=== PATIENT | male | born 1955 | race Caucasian/White ===

== ENCOUNTER 2020-09-18 09:09 | Inpatient (IN) | payer MEDICAID, SELFPAY ==
[2020-09-18] VITALS (8 sets, daily range): BP systolic 126–168; BP diastolic 70–95; PULSE 72–89; RESP 16–18; TEMP 36.7–36.8; O2SAT 93–97; BMI 30.8
--- NOTE | 2020-09-18 09:11 | ED.FALL ---
HPI - Fall General Chief Complaint: Fall Stated Complaint: fell 4 days ago Time Seen by Provider: 09/18/20 09:10 Source: patient, EMS and old records reviewed Mode of arrival: EMS Limitations: no limitations History of Present Illness HPI Narrative: states he missed a step and has been on the floor since Monday with R hip pain no head injury no AC therapy, being fed and urinating while on the floor, states his friend couldn't help him today to get up so he called 911 MD complaint: fall Onset (ago): day(s) (fell Monday) Fall from: standing Fall witnessed: no Place fall occurred: home Loss of consciousness: none Prolonged down time: yes (states he has not gotten off the floor since Monday) Symptoms prior to fall: none Context: tripped/slipped Location of injury - extremities: right: thigh Severity: severe Quality: aching Associated symptoms (after fall): denies Related Data Home Medications Medication Instructions Recorded Confirmed amlodipine 5 mg PO DAILY 09/18/20 09/18/20 lisinopril 20 mg PO BID 09/18/20 09/18/20 omega 3-sqw-cwp-fish oil [Fish Oil] 1 cap PO DAILY 09/18/20 09/18/20 triamterene-hydrochlorothiazid 1 tab PO DAILY 09/18/20 09/18/20 Allergies Allergy/AdvReac Type Severity Reaction Status Date / Time No Known Allergies Allergy Unverified 05/07/20 14:41 [No Known Allergies*] Review of Systems Review of Systems: Constitutional : No Fever, No Chills ENT/Mouth : No Ear Pain, No Hoarseness, No sore throat Eyes: No Eye Pain, No Swelling, No Redness, No Foreign Body Cardiovascular : No Chest Pain, No SOB Respiratory : No Cough, No Dyspnea Gastrointestinal : No Nausea, No Vomiting, No Diarrhea, No abdominal Pain Genitourinary : No Dysuria, No Hematuria Musculoskeletal : positive joint pain, No Myalgias, No Joint Swelling Skin : No Skin lacerations, No rash Neuro : No Weakness, No Numbness, No Loss of Consciousness, No Dizziness, No Headache Psych : No Anxiety/Panic, No Depression Heme/Lymph: no easy bruising, no Lymphadenopathy Endocrine : No Polyuria, No Polydipsia All other systems reviewed and are negative [facility] Past Medical History Attestation statement: The following information was validated with the patient. Medical History (Updated 09/18/20 @ 11:41 by Janelle Gupta DO) Alcoholism Aspiration pneumonia Falls HTN (hypertension) Social History Social History (Updated 09/18/20 @ 09:26 by Janelle Gupta DO) Alcohol intake: current Smoking Status: Former smoker Use of substances other than those prescribed or required for medical reasons: No Advance Directives: No Advance Directives Information Provided: Yes Physical Exam Vital Signs: Vital Signs: Last Vital Signs Temp 98.1 F 09/18/20 11:55 Pulse 78 09/18/20 11:55 Resp 18 09/18/20 11:55 BP 146/78 H 09/18/20 11:55 Pulse Ox 93 09/18/20 11:55 Body Mass Index 30.8 Appearance: Alert. Oriented X3. No acute distress. Eyes: Pupils equal, round and reactive to light. ENT: Pharynx normal. Neck: Normal inspection. Neck supple. CVS: Normal heart rate and rhythm. Pulses normal. Respiratory: No respiratory distress. Breath sounds normal. Abdomen: Soft and nontender. Skin: Skin warm and dry. Normal skin color. Normal skin turgor. Extremities: No lower extremity edema. distal NV intact, ttp along R prox hip with moderate swelling and thigh deformity noted hematoma lateral aspect felt Neuro: Oriented X 3. No motor deficit. No sensory deficit. Course Course Course Narrative: elke martell, call to orthopedics for admission, VS stable denies concern for ETOH withdrawal states he is not drinking regularly and does not shake without it MDM - Fall MDM Narrative Medical decision making narrative: 65 yo male states he fell on Monday and since then has been on the floor unable to get up, his is ill and cannot help him but she has been feeding him NPO since 830pm, giving him stuff to urinate in, he reports he missed s step and fell, his friend tried to help him get up but he couldn't reports isolated injury to R hip, at this time will need labs, CT head/neck, labs, IVF, CPK, IV ativan very shaky and has hx of falls in past related to ETOH, IV morphine for pain, xray of hip, possible reduction in ED if dislocated Lab Data Result diagrams: 09/18/20 10:38 09/18/20 10:38 Labs: Lab Results 09/18/20 09/18/20 09/18/20 Range/Units 10:38 10:38 10:38 WBC 8.3 (4.8-10.8) X10*3/uL RBC 2.98 L (4.60-5.80) X10*6/uL Hgb 10.5 L (14.0-18.0) g/dl Hct 30.6 L (42-52) % MCV 102.7 H (80-98) fL MCH 35.2 H (27.0-33.0) pg MCHC 34.3 (31.0-36.0) g/dl RDW 12.3 (11.0-16.0) % Plt Count 163 (160-400) X10*3/uL MPV 11.0 (9.4-12.4) fL Immature Gran % (Auto) 0.2 (0.0-0.4) % Neut % (Auto) 70.1 (45-73) % Lymph % (Auto) 16.7 L (20-40) % [place] % (Auto) 10.4 (2-11) % Eos % (Auto) 2.1 (0-4) % Baso % (Auto) 0.5 (0-2) % Lymph # (Auto) 1.4 (1.2-4.9) X10*3/uL [place] # (Auto) 0.9 (0.1-1.2) X10*3/uL Eos # (Auto) 0.2 (0.0-0.4) X10*3/uL Baso # (Auto) 0.0 (0.0-0.2) X10*3/uL Abs Immat Gran (auto) 0.02 (0.00-0.03) X10*3/uL Absolute Neuts (auto) 5.8 (2.0-8.3) X10*3/uL Absolute Nucleated RBC 0.000 (0.0-0.012) X10*3/uL Nucleated RBC % (auto) 0.0 (0.0-0.2) /100WBC PT (10.8-13.0) SEC INR (0.9-1.1) APTT (24.1-38.0) SEC Sodium 141 (135-145) mmol/L Potassium 3.7 (3.3-5.1) mmol/l Chloride 104 (96-108) mmol/L Carbon Dioxide 27 (22-29) mmol/L Anion Gap 14 (12-20) BUN 24 H (9-16) mg/dL Creatinine 0.79 (0.5-1.4) mg/dL Estim Creat Clear Calc 125.7 Estimated GFR > 60 Random Glucose 132 H (60-115) mg/dL Lactic Acid (0.5-2.0) mmol/L Calcium 8.4 (8.4-10.2) mg/dL Magnesium 1.6 (1.6-2.6) mg/dL Total Bilirubin 1.8 H (0.0-1.0) mg/dL Direct Bilirubin 0.8 H (0.0-0.5) mg/dL AST 57 H (5-37) U/L ALT 34 (0-40) U/L Alkaline Phosphatase 59 (39-117) U/L Total Creatine Kinase 239 H (38-174) U/L Troponin I High Sens (<3.5-35.0) ng/L Total Protein 5.8 L (6.5-8.0) g/dL Albumin 3.4 L (3.5-5.0) g/dL Lipase (8-78) U/L Stool Occult Blood (NEG) Ethyl Alcohol < 10 mg/dL 09/18/20 09/18/20 09/18/20 Range/Units 10:38 10:38 10:38 WBC (4.8-10.8) X10*3/uL RBC (4.60-5.80) X10*6/uL Hgb (14.0-18.0) g/dl Hct (42-52) % MCV (80-98) fL MCH (27.0-33.0) pg MCHC (31.0-36.0) g/dl RDW (11.0-16.0) % Plt Count (160-400) X10*3/uL MPV (9.4-12.4) fL Immature Gran % (Auto) (0.0-0.4) % Neut % (Auto) (45-73) % Lymph % (Auto) (20-40) % [place] % (Auto) (2-11) % Eos % (Auto) (0-4) % Baso % (Auto) (0-2) % Lymph # (Auto) (1.2-4.9) X10*3/uL [place] # (Auto) (0.1-1.2) X10*3/uL Eos # (Auto) (0.0-0.4) X10*3/uL Baso # (Auto) (0.0-0.2) X10*3/uL Abs Immat Gran (auto) (0.00-0.03) X10*3/uL Absolute Neuts (auto) (2.0-8.3) X10*3/uL Absolute Nucleated RBC (0.0-0.012) X10*3/uL Nucleated RBC % (auto) (0.0-0.2) /100WBC PT 14.5 H (10.8-13.0) SEC INR 1.2 H (0.9-1.1) APTT 27.7 (24.1-38.0) SEC Sodium (135-145) mmol/L Potassium (3.3-5.1) mmol/l Chloride (96-108) mmol/L Carbon Dioxide (22-29) mmol/L Anion Gap (12-20) BUN (9-16) mg/dL Creatinine (0.5-1.4) mg/dL Estim Creat Clear Calc Estimated GFR Random Glucose (60-115) mg/dL Lactic Acid 1.9 (0.5-2.0) mmol/L Calcium (8.4-10.2) mg/dL Magnesium (1.6-2.6) mg/dL Total Bilirubin (0.0-1.0) mg/dL Direct Bilirubin (0.0-0.5) mg/dL AST (5-37) U/L ALT (0-40) U/L Alkaline Phosphatase (39-117) U/L Total Creatine Kinase (38-174) U/L Troponin I High Sens 8.0 (<3.5-35.0) ng/L Total Protein (6.5-8.0) g/dL Albumin (3.5-5.0) g/dL Lipase (8-78) U/L Stool Occult Blood (NEG) Ethyl Alcohol mg/dL 09/18/20 09/18/20 Range/Units 10:38 11:46 WBC (4.8-10.8) X10*3/uL RBC (4.60-5.80) X10*6/uL Hgb (14.0-18.0) g/dl Hct (42-52) % MCV (80-98) fL MCH (27.0-33.0) pg MCHC (31.0-36.0) g/dl RDW (11.0-16.0) % Plt Count (160-400) X10*3/uL MPV (9.4-12.4) fL Immature Gran % (Auto) (0.0-0.4) % Neut % (Auto) (45-73) % Lymph % (Auto) (20-40) % [place] % (Auto) (2-11) % Eos % (Auto) (0-4) % Baso % (Auto) (0-2) % Lymph # (Auto) (1.2-4.9) X10*3/uL [place] # (Auto) (0.1-1.2) X10*3/uL Eos # (Auto) (0.0-0.4) X10*3/uL Baso # (Auto) (0.0-0.2) X10*3/uL Abs Immat Gran (auto) (0.00-0.03) X10*3/uL Absolute Neuts (auto) (2.0-8.3) X10*3/uL Absolute Nucleated RBC (0.0-0.012) X10*3/uL Nucleated RBC % (auto) (0.0-0.2) /100WBC PT (10.8-13.0) SEC INR (0.9-1.1) APTT (24.1-38.0) SEC Sodium (135-145) mmol/L Potassium (3.3-5.1) mmol/l Chloride (96-108) mmol/L Carbon Dioxide (22-29) mmol/L Anion Gap (12-20) BUN (9-16) mg/dL Creatinine (0.5-1.4) mg/dL Estim Creat Clear Calc Estimated GFR Random Glucose (60-115) mg/dL Lactic Acid (0.5-2.0) mmol/L Calcium (8.4-10.2) mg/dL Magnesium (1.6-2.6) mg/dL Total Bilirubin (0.0-1.0) mg/dL Direct Bilirubin (0.0-0.5) mg/dL AST (5-37) U/L ALT (0-40) U/L Alkaline Phosphatase (39-117) U/L Total Creatine Kinase (38-174) U/L Troponin I High Sens (<3.5-35.0) ng/L Total Protein (6.5-8.0) g/dL Albumin (3.5-5.0) g/dL Lipase 49 (8-78) U/L Stool Occult Blood NEG (NEG) Ethyl Alcohol mg/dL ECG Data Attestation: I personally reviewed and interpreted this ECG as follows: ECG interpretation date: 09/18/20 ECG interpretation time: 11:41 Interpretation: Rate: 74 Rhythm: NSR [place]: normal Normal P waves. Normal GELA. decreased QRS complex. ST T wave : nonspecific qTC:normal prior studies: no acute ischemia The study has been interpreted contemporaneously by me. . Discharge Plan Discharge Clinical Impression: Intertrochanteric fracture Qualifiers: Encounter type: initial encounter Fracture type: closed Fracture alignment: displaced Laterality: right Qualified Code(s): S72.141A - Displaced intertrochanteric fracture of right femur, initial encounter for closed fracture Anemia Qualifiers: Anemia type: other cause Other causes of anemia: other cause, not classified Qualified Code(s): D64.89 - Other specified anemias Patient Disposition: Admitted As Inpatient
--- NOTE | 2020-09-18 09:12 | ECG_ITS ---
Test Reason : BLEED Blood Pressure : / mmHG Vent. Rate : 074 BPM Atrial Rate : 074 BPM P-R Int : 120 ms QRS Dur : 086 ms QT Int : 420 ms P-R-T Axes : 026 041 093 degrees QTc Int : 466 ms Normal sinus rhythm with sinus arrhythmia Low voltage QRS Borderline ECG When compared with ECG of 21-JUN-2015 21:26, Nonspecific T wave abnormality now evident in Inferior leads Referred By: Janelle Gupta Electronically Signed By:Trevor Hardy
--- NOTE | 2020-09-18 09:12 | CT_ITS ---
EXAMINATION: CT BRAIN, CT CERVICAL SPINE AND CT CHEST WITHOUT CONTRAST. CLINICAL INFORMATION: Fall. COMPARISON: None TECHNIQUE: 5 mm thin axial and reformatted 2 mm thin sagittal and coronal images of brain were obtained. Axial 3 mm thin and reformatted 2 mm thin sagittal and coronal images of cervical spine were obtained. Lastly 5 mm thin axial and reformatted 3 mm thin sagittal and coronal images of chest were obtained. DLP [id number] FINDINGS: BRAIN: There is no acute intra-axial, extra-axial bleed, masses, collection or midline shift. There is no acute infarction in evolution. There is no edema. The calvo to white matter consistent maintained. The lateral ventricles are slightly asymmetrical and mildly prominent. Mild prominence of cortical sulci are seen. Bone windows reveal no calvarial abnormality. No scalp soft tissue abnormality seen. There is mild mucoperiosteal thickening right maxillary sinus. Rest of the paranasal sinuses are well-aerated and clear. The bony orbits are intact. The optic globe, optic nerve are symmetrical. CERVICAL SPINE: On sagittal reconstructed images there is mild straightening of cervical lordosis. The vertebral heights are normal. There is minimal grade 1 anterior listhesis C3-C4 and C4 or C5 likely positional. Rest of the alignment is normal. There is loss of C5-C6 and C6-C7 disc heights with ventral and posterior spondylosis. The craniovertebral junction is normal. There is mild rotary subluxation of the C1-C2 alignment. There is moderate left C2-C3, C3-C4, C4-C5 facet joint arthropathy and hypertrophy. There is no visible acute fracture or dislocation. The prevertebral, paravertebral and parapharyngeal soft tissues are normal. The LAN is widely patent. Bilaterally thyroid lobes are symmetrical and normal. No abnormal neck mass or lymph node adenopathy seen. CHEST: Both lungs are well-expanded and clear of acute process. There is no lung contusion, mass or pulmonary nodule. The heart size and the great vessels are normal caliber. There are coronary artery calcifications present. No pericardial effusion. No mediastinal mass or abnormal lymphadenopathy seen. The thyroid lobes are symmetrical with a hypodense nodule in the left lobe.. There is moderate mediastinal fat present. There is no pleural effusion or thickening. The axilla and chest wall is unremarkable. Imaging through the upper abdomen reveals visualized liver, spleen, pancreas and bilateral adrenal glands are unremarkable. Bone windows reveal degenerative disc changes T5-T6 through T8-T9 disc level. There is no lytic process. There is no visible acute rib fracture. There is old healed left fifth and sixth rib fractures. CT/CT cervical spine wo con IMPRESSION: No acute intracranial process seen. Age-related mild cerebral volume loss. There is a degenerative disc changes and spondylosis as described above. There is a rotatory subluxation at the C1-C2 articulation but no visible acute fracture or dislocation seen. Positional listhesis is visualized as described above. No acute lung contusion or consolidation. No pleural effusion pneumothorax. Old left rib fractures. No acute vertebral or rib fractures seen.
--- NOTE | 2020-09-18 09:17 | XR_ITS ---
EXAMINATION: XR HIP, RIGHT CLINICAL INFORMATION: Right hip pain. COMPARISON: None TECHNIQUE: Two views of the right hip. FINDINGS: There is a comminuted right intertrochanteric fracture with increased varus angulation and avulsion of the lesser trochanter. Mild right hip degenerative joint changes are seen. The right hemipelvis is intact. The soft tissues are unremarkable. XR/XR hip RT min 2V IMPRESSION: 1. Mildly displaced, comminuted right intertrochanteric fracture. 2. Mild right hip osteoarthritis.
[2020-09-18 10:48] LABS: MANUAL DIFF FLAG NO
[2020-09-18 10:50] LABS: Basophils Percent Auto 0.5 % (0-2); Eosinophils Absolute Auto 0.2 X10*3/uL (0.0-0.4); Eosinophils Percent Auto 2.1 % (0-4); Hematocrit 30.6 % (42-52); Hemoglobin 10.5 g/dl (14.0-18.0); Imm Gran Abs Auto 0.02 X10*3/uL (0.00-0.03); Imm Gran Pct Auto 0.2 % (0.0-0.4); Lymphocytes Absolute Auto 1.4 X10*3/uL (1.2-4.9); Lymphocytes Percent Auto 16.7 % (20-40); Mean Corpuscular HGB Conc 34.3 g/dl (31.0-36.0); Mean Corpuscular Hemoglobin 35.2 pg (27.0-33.0); Mean Corpuscular Volume 102.7 fL (80-98); Monocytes Absolute Auto 0.9 X10*3/uL (0.1-1.2); Monocytes Percent Auto 10.4 % (2-11); Neutrophils Absolute Auto 5.8 X10*3/uL (2.0-8.3); Neutrophils Percent Auto 70.1 % (45-73); Platelet Count 163 X10*3/uL (160-400); Red Blood Count 2.98 X10*6/uL (4.60-5.80); Red Cell Distribution Width 12.3 % (11.0-16.0); White Blood Count 8.3 X10*3/uL (4.8-10.8)
[2020-09-18 10:57] LABS: INTERNATIONAL NORM RATIO 1.2 (0.9-1.1); Prothrombin Time 14.5 SEC (10.8-13.0)
[2020-09-18] MEDS: Morphine Sulfate 4 MG/ML CARTRIDGE 2 MG IVPUSH (10:59)
[2020-09-18 11:00] LABS: Partial Thromboplastin Time 27.7 SEC (24.1-38.0)
[2020-09-18] MEDS: LORazepam 2 MG/ML VIAL 1 MG IVPUSH (11:08)
[2020-09-18 11:14] LABS: Lactic Acid 1.9 mmol/L (0.5-2.0)
[2020-09-18 11:18] LABS: Ethanol < 10 mg/dL
[2020-09-18 11:20] LABS: Alanine Aminotransferase 34 U/L (0-40); Anion Gap 14 (12-20); Aspartate Amino Transferase 57 U/L (5-37); Bilirubin Direct 0.8 mg/dL (0.0-0.5); Bilirubin Total 1.8 mg/dL (0.0-1.0); Blood Urea Nitrogen 24 mg/dL (9-16); Calcium 8.4 mg/dL (8.4-10.2); Carbon Dioxide 27 mmol/L (22-29); Chloride 104 mmol/L (96-108); Creatinine Clr Calc Pharmacy 125.7; Estimated Glomerular Filt Rate > 60; Glucose Random 132 mg/dL (60-115); Magnesium 1.6 mg/dL (1.6-2.6); Potassium 3.7 mmol/l (3.3-5.1); Sodium 141 mmol/L (135-145)
[2020-09-18 11:21] LABS: Albumin Level 3.4 g/dL (3.5-5.0); Alkaline Phosphatase 59 U/L (39-117); Lipase 49 U/L (8-78); Total Protein 5.8 g/dL (6.5-8.0)
[2020-09-18 12:02] LABS: OBS Int Ctl Valid YES; OBS1 NEG (NEG)
[2020-09-18 12:10] LABS: COVID-19 Test Negative (Negative); IDNOW Serial# 9DD0AD1C
[2020-09-18] MEDS: oxyCODONE HCl Immed Release 5 MG TABLET PO (15:42)
[2020-09-18] MEDS: Dextrose 5 % and 0.45 % NaCl 1,000 ML 100 ML IVCONT (15:48)
--- NOTE | 2020-09-18 16:02 | PM.HPOR ---
History of Present Illness History of Present Illness Date of Service: 09/18/20 Chief complaint: Right intertrochanteric femur fx Narrative: Adán Live is a 65 year old male who presented to the emergency department earlier today for an injury he sustained to his right hip. He states on 09/14/20, he fell at home. He was unable to get up due to the pain, he did not think he had a fracture. His was unable to help him up, but was able to give him food and a bottle to void in. He had a friend come over to help him up , but due to the pain he was unable to stand. EMS was contacted and transported him to the ED for further workup. While in the ED, xrays were significant for intertrochanteric fracture of the right femur . Labs were negative for Rhabdo. At this time he will be admitted to the orthopedic service and we will proceed with surgical planning. Review of Systems Review of Systems: Yes all other systems are reviewed and are negative PMFSH Past Medical History Medical History (Updated 09/18/20 @ 11:41 by Janelle Gupta DO) Alcoholism Aspiration pneumonia Falls HTN (hypertension) Social History Social History (Updated 09/18/20 @ 09:26 by Janelle Gupta DO) Alcohol intake: current Smoking Status: Former smoker Use of substances other than those prescribed or required for medical reasons: No Advance Directives: No Advance Directives Information Provided: Yes Meds Allergies Allergy/AdvReac Type Severity Reaction Status Date / Time No Known Allergies Allergy Unverified 05/07/20 14:41 [No Known Allergies*] Home Medications Medication Instructions Recorded Confirmed Type amlodipine 5 mg PO DAILY 09/18/20 09/18/20 History lisinopril 20 mg PO BID 09/18/20 09/18/20 History omega 2-hyt-bbx-fish oil [Fish Oil] 1 cap PO DAILY 09/18/20 09/18/20 History triamterene-hydrochlorothiazid 1 tab PO DAILY 09/18/20 09/18/20 History Physical Exam Vital Signs: Vital Signs: Last Vital Signs Temp 98.1 F 09/18/20 11:55 Pulse 76 09/18/20 15:03 Resp 18 09/18/20 15:03 BP 139/74 09/18/20 15:03 Pulse Ox 95 09/18/20 15:03 Body Mass Index 30.8 Const: General: cooperative and no acute distress Orientation/consciousness: patient oriented x3 Resp: Effort & Inspection: normal respiratory effort and able to speak in complete sentences Cardio: Peripheral pulses: Peripheral pulses 2+ throughout Neuro: General: patient oriented x3 Extrem: Other: Right hip skin intact, no visual wounds. Mild tenderness along the lateral aspect of the hip and pain with log roll. Leg is shortened and ER. Peripheral pulses present. Results Labs Result Diagrams: 09/18/20 10:38 09/18/20 10:38 Labs: Abnormal lab results 09/18/20 09/18/20 09/18/20 Range/Units 10:38 10:38 10:38 RBC 2.98 L (4.60-5.80) X10*6/uL Hgb 10.5 L (14.0-18.0) g/dl Hct 30.6 L (42-52) % MCV 102.7 H (80-98) fL MCH 35.2 H (27.0-33.0) pg Lymph % (Auto) 16.7 L (20-40) % PT 14.5 H (10.8-13.0) SEC INR 1.2 H (0.9-1.1) BUN 24 H (9-16) mg/dL Random Glucose 132 H (60-115) mg/dL Total Bilirubin 1.8 H (0.0-1.0) mg/dL Direct Bilirubin 0.8 H (0.0-0.5) mg/dL AST 57 H (5-37) U/L Total Creatine Kinase 239 H (38-174) U/L Total Protein 5.8 L (6.5-8.0) g/dL Albumin 3.4 L (3.5-5.0) g/dL H & H 09/18/20 Range/Units 10:38 Hgb 10.5 L (14.0-18.0) g/dl Hct 30.6 L (42-52) % Coagulation 09/18/20 Range/Units 10:38 INR 1.2 H (0.9-1.1) All other labs normal. Assessment and Plan (1) Intertrochanteric fracture: Qualifiers: Encounter type: initial encounter Fracture alignment: displaced Fracture type: closed Laterality: right Qualified Code(s): S72.141A - Displaced intertrochanteric fracture of right femur, initial encounter for closed fracture Status: Acute I discussed the case with Dr Walls and explained the extent of the injury to the patient and options available which include surigcal intervention. I explained the procedure in detail along with the length of recovery and rehab course. I explained the risk, benefits and alternatives. Risk including, but not limited to infection, blood clots, bleeding, non union or malunion and nerve/tissue damage to surrounding areas. I answered all their questions and with their understanding they have consented to move forward with Operative Fixation of the right hip . The patient with be T&S, med clearance obtained and NPO after midnight.
--- NOTE | 2020-09-18 17:39 | P.CONAN_ITS ---
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 Meds Allergies Allergy/AdvReac Type Severity Reaction Status Date / Time No Known Allergies Allergy Verified 09/18/20 22:03 [No Known Allergies*] Home Medications Medication Instructions Recorded Confirmed Type amlodipine 5 mg PO DAILY 09/18/20 09/18/20 History lisinopril 20 mg PO BID 09/18/20 09/18/20 History omega 3-tqj-vbq-fish oil [Fish Oil] 1 cap PO DAILY 09/18/20 09/18/20 History triamterene-hydrochlorothiazid 1 tab PO DAILY 09/18/20 09/18/20 History Exam Exam Date and Time: September 18, [id number] Height,Weight and Vital Signs: Height 6 ft 2 in Weight 108.862 kg Last Vital Signs Temp 98.1 F 09/18/20 11:55 Pulse 76 09/18/20 15:03 Resp 18 09/18/20 15:03 BP 139/74 09/18/20 15:03 Pulse Ox 95 09/18/20 15:03 Pertinent Lab Results Pertinent Lab Results: Laboratory Tests 09/18/20 09/18/20 09/18/20 10:38 10:38 10:38 WBC 8.3 RBC 2.98 L Hgb 10.5 L Hct 30.6 L MCV 102.7 H MCH 35.2 H MCHC 34.3 RDW 12.3 Plt Count 163 MPV 11.0 Immature Gran % (Auto) 0.2 Neut % (Auto) 70.1 Lymph % (Auto) 16.7 L [place] % (Auto) 10.4 Eos % (Auto) 2.1 Baso % (Auto) 0.5 Lymph # (Auto) 1.4 [place] # (Auto) 0.9 Eos # (Auto) 0.2 Baso # (Auto) 0.0 Abs Immat Gran (auto) 0.02 Absolute Neuts (auto) 5.8 Absolute Nucleated RBC 0.000 Nucleated RBC % (auto) 0.0 PT INR APTT Sodium 141 Potassium 3.7 Chloride 104 Carbon Dioxide 27 Anion Gap 14 BUN 24 H Creatinine 0.79 Estim Creat Clear Calc 125.7 Estimated GFR > 60 Random Glucose 132 H Lactic Acid Calcium 8.4 Magnesium 1.6 Total Bilirubin 1.8 H Direct Bilirubin 0.8 H AST 57 H ALT 34 Alkaline Phosphatase 59 Total Creatine Kinase 239 H Troponin I High Sens Total Protein 5.8 L Albumin 3.4 L Lipase Stool Occult Blood Ethyl Alcohol < 10 COVID-19 ([facility]) COVID-19 Syntervention Com Blood Type Antibody Screen 09/18/20 09/18/20 09/18/20 10:38 10:38 10:38 WBC RBC Hgb Hct MCV MCH MCHC RDW Plt Count MPV Immature Gran % (Auto) Neut % (Auto) Lymph % (Auto) [place] % (Auto) Eos % (Auto) Baso % (Auto) Lymph # (Auto) [place] # (Auto) Eos # (Auto) Baso # (Auto) Abs Immat Gran (auto) Absolute Neuts (auto) Absolute Nucleated RBC Nucleated RBC % (auto) PT 14.5 H INR 1.2 H APTT 27.7 Sodium Potassium Chloride Carbon Dioxide Anion Gap BUN Creatinine Estim Creat Clear Calc Estimated GFR Random Glucose Lactic Acid 1.9 Calcium Magnesium Total Bilirubin Direct Bilirubin AST ALT Alkaline Phosphatase Total Creatine Kinase Troponin I High Sens 8.0 Total Protein Albumin Lipase Stool Occult Blood Ethyl Alcohol COVID-19 ([facility]) COVID-Basys Com Blood Type Antibody Screen 09/18/20 09/18/20 09/18/20 10:38 11:46 11:46 WBC RBC Hgb Hct MCV MCH MCHC RDW Plt Count MPV Immature Gran % (Auto) Neut % (Auto) Lymph % (Auto) [place] % (Auto) Eos % (Auto) Baso % (Auto) Lymph # (Auto) [place] # (Auto) Eos # (Auto) Baso # (Auto) Abs Immat Gran (auto) Absolute Neuts (auto) Absolute Nucleated RBC Nucleated RBC % (auto) PT INR APTT Sodium Potassium Chloride Carbon Dioxide Anion Gap BUN Creatinine Estim Creat Clear Calc Estimated GFR Random Glucose Lactic Acid Calcium Magnesium Total Bilirubin Direct Bilirubin AST ALT Alkaline Phosphatase Total Creatine Kinase Troponin I High Sens Total Protein Albumin Lipase 49 Stool Occult Blood NEG Ethyl Alcohol COVID-19 ([facility]) Negative COVID-19 Syntervention Com See Note Blood Type Antibody Screen 09/18/20 11:46 WBC RBC Hgb Hct MCV MCH MCHC RDW Plt Count MPV Immature Gran % (Auto) Neut % (Auto) Lymph % (Auto) [place] % (Auto) Eos % (Auto) Baso % (Auto) Lymph # (Auto) [place] # (Auto) Eos # (Auto) Baso # (Auto) Abs Immat Gran (auto) Absolute Neuts (auto) Absolute Nucleated RBC Nucleated RBC % (auto) PT INR APTT Sodium Potassium Chloride Carbon Dioxide Anion Gap BUN Creatinine Estim Creat Clear Calc Estimated GFR Random Glucose Lactic Acid Calcium Magnesium Total Bilirubin Direct Bilirubin AST ALT Alkaline Phosphatase Total Creatine Kinase Troponin I High Sens Total Protein Albumin Lipase Stool Occult Blood Ethyl Alcohol COVID-19 ([facility]) COVID-19 Clin Com Blood Type A Positive Antibody Screen NEGATIVE Airway Mallampati Class: III TM Dist: >3cm Neck ROM: Full Loose/Missing/Broken Teeth: No Heart: RRR Lungs: CTA Assessment and Plan Assessment Anesthesia Assessment: Anesthesia Plan Discussed and Chart Reviewed Final Anesthetic Review NPO: Yes ASA Class: II Final Preanesthetic Review: No Changes in Pt Med Stat, Meds/Allgs Chart Reviewed, Consent Obtained/Reviewed and Anes Risks/Benef Reviewed Patient Risk: Intermediate Procedure Risk: Intermediate Anesthetic Plan Anesthetic Plan: GA Disposition: Standard PACU
--- NOTE | 2020-09-18 18:36 | PM.IMCN ---
History of Present Illness Data of Consult Service Date: 09/18/20 Primary Care Provider: Xu Christianson MD [facility] Reason for consult: Medical management 65 year male with HTN, history of alchol use and falls. He is admitted to the ortho service due to hip fracture. He reportedly missed a step on Monday09/14/20 and sustained a fall at home with right hip pain and hasn't been able to walk, he thought it was a sprain and waited it out. was helping with food on floor and using a urinr. He finally decided to come on 09/18/20 to be evaluated in ED. He denies hitting his head, was not drunk at that time and had no loss of consciousness Review of Systems Review of Systems: Gen: no fever Resp: no sob, no cough CV: no chest, no SESAY, no leg edema GI: No n/v, no abd pain Neuro: No confusion Mus/sk: hip pain Yes all other systems are reviewed and are negative [facility] Medical History (Updated 09/19/20 @ 09:16 by David Regan MD) Alcoholism Aspiration pneumonia Falls HTN (hypertension) Family history: reviewed and not pertinent Social History (Updated 09/19/20 @ 09:16 by David Regan MD) Household Members: Spouse Housing: House Alcohol intake: current Smoking Status: Former smoker service: No Current occupational status: employed 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 Meds Allergies Allergy/AdvReac Type Severity Reaction Status Date / Time No Known Allergies Allergy Verified 09/18/20 22:03 [No Known Allergies*] Home Medications Medication Instructions Recorded Confirmed Type amlodipine 5 mg PO DAILY 09/18/20 09/18/20 History lisinopril 20 mg PO BID 09/18/20 09/18/20 History omega 3-kop-uoq-fish oil [Fish Oil] 1 cap PO DAILY 09/18/20 09/18/20 History triamterene-hydrochlorothiazid 1 tab PO DAILY 09/18/20 09/18/20 History Physical Exam Vital Signs and Narrative: Vital Signs: Last Vital Signs Temp 98.1 F 09/18/20 11:55 Pulse 72 09/18/20 18:02 Resp 18 09/18/20 18:02 BP 168/78 H 09/18/20 18:02 Pulse Ox 95 09/18/20 15:03 Body Mass Index 30.8 Constitutional Awake and Alert, No apparent distress Neck Supple, No lymphadenopathy Cardiovascular RRR, No M/R/G, S1 S2, No S3 S4, No pedal edema Respiratory Lungs clear, No respiratory distress Gastrointestinal Non tender, Non-distended Skin No rash Neurological Alert & oriented x3 Psychological Appropriate affect Results Labs CBC and Chem 7: 09/19/20 06:19 09/19/20 06:19 Labs: Laboratory Results - last 24 hr 09/18/20 09/18/20 09/18/20 10:38 10:38 10:38 MCV 102.7 H MCH 35.2 H MCHC 34.3 RDW 12.3 Plt Count 163 MPV 11.0 Immature Gran % (Auto) 0.2 Neut % (Auto) 70.1 Lymph % (Auto) 16.7 L Saunders % (Auto) 10.4 Eos % (Auto) 2.1 Baso % (Auto) 0.5 Lymph # (Auto) 1.4 Saunders # (Auto) 0.9 Eos # (Auto) 0.2 Baso # (Auto) 0.0 Abs Immat Gran (auto) 0.02 Absolute Neuts (auto) 5.8 Absolute Nucleated RBC 0.000 Nucleated RBC % (auto) 0.0 PT INR APTT Anion Gap 14 Estim Creat Clear Calc 125.7 Estimated GFR > 60 Random Glucose 132 H Lactic Acid Calcium 8.4 Magnesium 1.6 Total Bilirubin 1.8 H Direct Bilirubin 0.8 H AST 57 H ALT 34 Alkaline Phosphatase 59 Total Creatine Kinase 239 H Troponin I High Sens Total Protein 5.8 L Albumin 3.4 L Lipase Stool Occult Blood Ethyl Alcohol < 10 COVID-19 ([facility]) COVID-19 Clin Com Blood Type Antibody Screen 09/18/20 09/18/20 09/18/20 10:38 10:38 10:38 MCV MCH MCHC RDW Plt Count MPV Immature Gran % (Auto) Neut % (Auto) Lymph % (Auto) Saunders % (Auto) Eos % (Auto) Baso % (Auto) Lymph # (Auto) Saunders # (Auto) Eos # (Auto) Baso # (Auto) Abs Immat Gran (auto) Absolute Neuts (auto) Absolute Nucleated RBC Nucleated RBC % (auto) PT 14.5 H INR 1.2 H APTT 27.7 Anion Gap Estim Creat Clear Calc Estimated GFR Random Glucose Lactic Acid 1.9 Calcium Magnesium Total Bilirubin Direct Bilirubin AST ALT Alkaline Phosphatase Total Creatine Kinase Troponin I High Sens 8.0 Total Protein Albumin Lipase Stool Occult Blood Ethyl Alcohol COVID-19 ([facility]) COVID-19 [employer] Com Blood Type Antibody Screen 09/18/20 09/18/20 09/18/20 10:38 11:46 11:46 MCV MCH MCHC RDW Plt Count MPV Immature Gran % (Auto) Neut % (Auto) Lymph % (Auto) Saunders % (Auto) Eos % (Auto) Baso % (Auto) Lymph # (Auto) Saunders # (Auto) Eos # (Auto) Baso # (Auto) Abs Immat Gran (auto) Absolute Neuts (auto) Absolute Nucleated RBC Nucleated RBC % (auto) PT INR APTT Anion Gap Estim Creat Clear Calc Estimated GFR Random Glucose Lactic Acid Calcium Magnesium Total Bilirubin Direct Bilirubin AST ALT Alkaline Phosphatase Total Creatine Kinase Troponin I High Sens Total Protein Albumin Lipase 49 Stool Occult Blood NEG Ethyl Alcohol COVID-19 ([facility]) Negative COVID-19 [employer] See Note Blood Type Antibody Screen 09/18/20 11:46 MCV MCH MCHC RDW Plt Count MPV Immature Gran % (Auto) Neut % (Auto) Lymph % (Auto) Saunders % (Auto) Eos % (Auto) Baso % (Auto) Lymph # (Auto) Saunders # (Auto) Eos # (Auto) Baso # (Auto) Abs Immat Gran (auto) Absolute Neuts (auto) Absolute Nucleated RBC Nucleated RBC % (auto) PT INR APTT Anion Gap Estim Creat Clear Calc Estimated GFR Random Glucose Lactic Acid Calcium Magnesium Total Bilirubin Direct Bilirubin AST ALT Alkaline Phosphatase Total Creatine Kinase Troponin I High Sens Total Protein Albumin Lipase Stool Occult Blood Ethyl Alcohol COVID-19 ([facility]) COVID-19 [employer] Com Blood Type A Positive Antibody Screen NEGATIVE Imaging Radiologist's Impressions: Impressions Cervical Spine CT 09/18/20 09:12 IMPRESSION: No acute intracranial process seen. Age-related mild cerebral volume loss. There is a degenerative disc changes and spondylosis as described above. There is a rotatory subluxation at the C1-C2 articulation but no visible acute fracture or dislocation seen. Positional listhesis is visualized as described above. No acute lung contusion or consolidation. No pleural effusion pneumothorax. Old left rib fractures. No acute vertebral or rib fractures seen. Chest CT 09/18/20 09:12 IMPRESSION: No acute intracranial process seen. Age-related mild cerebral volume loss. There is a degenerative disc changes and spondylosis as described above. There is a rotatory subluxation at the C1-C2 articulation but no visible acute fracture or dislocation seen. Positional listhesis is visualized as described above. No acute lung contusion or consolidation. No pleural effusion pneumothorax. Old left rib fractures. No acute vertebral or rib fractures seen. Head CT 09/18/20 09:12 IMPRESSION: No acute intracranial process seen. Age-related mild cerebral volume loss. There is a degenerative disc changes and spondylosis as described above. There is a rotatory subluxation at the C1-C2 articulation but no visible acute fracture or dislocation seen. Positional listhesis is visualized as described above. No acute lung contusion or consolidation. No pleural effusion pneumothorax. Old left rib fractures. No acute vertebral or rib fractures seen. Hip X-Ray 09/18/20 09:17 IMPRESSION: 1. Mildly displaced, comminuted right intertrochanteric fracture. 2. Mild right hip osteoarthritis. Assessment and Plan (1) Intertrochanteric fracture: Qualifiers: Encounter type: initial encounter Fracture alignment: displaced Fracture type: closed Laterality: right Qualified Code(s): S72.141A - Displaced intertrochanteric fracture of right femur, initial encounter for closed fracture Status: Acute (2) HTN (hypertension): Status: Acute (3) Alcoholism: Status: Acute 65 year male with HTN, alcoho use here with right hip fracture 1. Right hip mildly displaced fracture -Surgical repair by ortho -Average cardiovascular risk, ECG reviewed no ischemic changes. No further cardiac testing needed 2. HTN--BP high this morning, -Resume home meds (Amlodipine 5, Lisinopril 20 and triamterene hydrochlorothiazide) 3. history of alchol use--he states he last drank a week ago, no signs of withdrawal -Add CIWA -Folic Acid and Thiamine
--- NOTE | 2020-09-18 20:26 | PC.NURSE ---
ATTEMPTED TO GIVE REPORT. NURSE TO CALL BACK FOR REPORT.
--- NOTE | 2020-09-18 20:48 | PC.NURSE ---
NURSE TO NURSE GIVEN TO DESTINY OTERO.
[2020-09-19] VITALS (18 sets, daily range): BP systolic 120–171; BP diastolic 62–100; PULSE 69–88; RESP 16–20; TEMP 36–36.6; O2SAT 91–98
[2020-09-19] MEDS: Dextrose 5 % and 0.45 % NaCl 1,000 ML 100 ML IVCONT ×2 (01:44→13:16)
[2020-09-19] MEDS: HYDROmorphone HCl 0.5 MG/0.5 ML SYRINGE 0.25 MG IVPUSH ×3 (04:22→17:07)
[2020-09-19 07:06] LABS: MANUAL DIFF FLAG NO
[2020-09-19 07:21] LABS: Basophils Percent Auto 0.4 % (0-2); Eosinophils Absolute Auto 0.4 X10*3/uL (0.0-0.4); Eosinophils Percent Auto 3.9 % (0-4); Hematocrit 29.2 % (42-52); Imm Gran Abs Auto 0.02 X10*3/uL (0.00-0.03); Imm Gran Pct Auto 0.2 % (0.0-0.4); Lymphocytes Absolute Auto 2.3 X10*3/uL (1.2-4.9); Mean Corpuscular HGB Conc 34.2 g/dl (31.0-36.0); Mean Corpuscular Hemoglobin 35.3 pg (27.0-33.0); Mean Corpuscular Volume 103.2 fL (80-98); Mean Platelet Volume 11.1 fL (9.4-12.4); Monocytes Absolute Auto 1.1 X10*3/uL (0.1-1.2); Monocytes Percent Auto 11.6 % (2-11); Neutrophils Absolute Auto 5.4 X10*3/uL (2.0-8.3); Neutrophils Percent Auto 58.9 % (45-73); Platelet Count 148 X10*3/uL (160-400); Red Blood Count 2.83 X10*6/uL (4.60-5.80); Red Cell Distribution Width 11.9 % (11.0-16.0); White Blood Count 9.2 X10*3/uL (4.8-10.8)
[2020-09-19 07:44] LABS: Anion Gap 12 (12-20); Blood Urea Nitrogen 15 mg/dL (9-16); Carbon Dioxide 27 mmol/L (22-29); Chloride 106 mmol/L (96-108); Creatinine Clr Calc Pharmacy 148.2; Estimated Glomerular Filt Rate > 60; Glucose Random 122 mg/dL (60-115); Potassium 3.8 mmol/L (3.3-5.1); Sodium 141 mmol/L (135-145)
--- NOTE | 2020-09-19 08:12 | PM.EVENT ---
Event Note Date of Service: 09/19/20 Event Note: Patient seen this morning He is scheduled for IMN this morning, NPO. He has no concerns at this time.
--- NOTE | 2020-09-19 08:52 | FL_ITS ---
EXAMINATION: XR FLUOROSCOPY WITH IMAGES CLINICAL INFORMATION: right intertrochanteric fracture gamma nail COMPARISON: Radiograph dated 09/18/2020 TECHNIQUE: Fluoroscopy performed by Dr. Naren Walls. Fluoroscopy time: 2.3 minutes DAP: 1.12 mGycm2 Images: 6 FL/FL guidance in OR FINDINGS/ IMPRESSION: Multiple images demonstrated placement of a long intramedullary nail with a femoral neck gamma nail and a single distal interlocking screw. This fixation construct crosses the comminuted intertrochanteric fracture with improved alignment. There is persistent lateral displacement of the distal fragment relative to the femoral neck and lesser trochanter.
--- NOTE | 2020-09-19 08:58 | MHC.CM.PN ---
PATIENT IS FULLY INDEPENDENT WITH HIS ADLS. HE NO LONGER HAS INSURANCE, AND HAS NOT YET SECURED THESE BENEFITS AT HIS NEW PLACE OF EMPLOYMENT. FACE SHEET FAXED TO [employer] @ [phone]. HE IS AGREEABLE TO COMPLETING A HCP, AND ASSIGNS HIS , MIRZA ([phone]) THE AGENT. COPY IN CHART. CASE MANAGEMENT FOLLOWING
[2020-09-19] MEDS: 0.9 % Sodium Chloride Flush 3 ML SYRINGE IVFLUSH (09:20)
[2020-09-19] MEDS: amLODIPine Besylate 5 MG TABLET PO (09:20)
--- NOTE | 2020-09-19 09:23 | P.PNIM_ITS ---
Subjective Subjective Date of Service: 09/19/20 Review of Systems Gen: no fever Resp: no sob, no cough CV: no chest, no SESAY, no leg edema GI: No n/v, no abd pain Neuro: No confusion Mus/sk: hip pain Physical Exam Vital Signs: Vital Signs: Last Vital Signs Temp 96.9 F 09/19/20 07:34 Pulse 76 09/19/20 07:34 Resp 18 09/19/20 07:34 BP 170/100 H 09/19/20 07:34 Pulse Ox 96 09/19/20 07:34 Body Mass Index 30.8 Const: General: cooperative and no acute distress Orientation/consciousness: patient oriented x3 Resp: Effort & Inspection: normal respiratory effort and able to speak in complete sentences Cardio: Peripheral pulses: Peripheral pulses 2+ throughout Neuro: General: patient oriented x3 Extrem: Other: Right hip skin intact, no visual wounds. Mild tenderness along the lateral aspect of the hip and pain with log roll. Leg is shortened and externally. Peripheral pulses present. Objective Data Current Medications Generic Name Dose Route Start Last Admin Trade Name Sadiqq PRN Reason Stop Dose Admin Acetaminophen 325 mg 09/18/20 14:58 Acetaminophen 325 Mg Tablet PO Q4H PRN Pain, Mild (Pain Scale 1-3) Amlodipine Besylate 5 mg 09/19/20 09:00 09/19/20 09:20 Amlodipine Besylate 5 Mg Tablet PO 5 mg DAILY SARAHI Administration Protocol Hydromorphone HCl 0.25 mg 09/18/20 14:58 09/19/20 09:19 Hydromorphone Hcl 0.5 Mg/0.5 Ml Syringe IVPUSH 0.25 mg Q4H PRN Administration Pain, Severe (Pain Scale 7-10) Dextrose/Sodium Chloride 1,000 mls @ 100 mls/hr 09/18/20 14:58 09/19/20 01:44 D51/2ns IVCONT 100 mls/hr .Q10H SARAHI Administration Lisinopril 20 mg 09/19/20 09:00 09/19/20 09:20 Lisinopril 20 Mg Tablet PO 20 mg BID SARAHI Administration Protocol Non-Formulary Medication 1 cap 09/19/20 09:00 [place] 1-Hrj-Xje-Fish Oil [Fish Oil] PO DAILY SARAHI Ondansetron HCl 4 mg 09/18/20 14:58 Ondansetron Hcl 4 Mg/2 Ml Vial IVPUSH Q4H PRN Nausea Oxycodone HCl 5 mg 09/18/20 14:58 09/18/20 15:42 Oxycodone Hcl Immed Release 5 Mg Tablet PO 5 mg Q4H PRN Administration Pain, Moderate (Pain Scale 4-6 Pharmacy Consult 1 each 09/18/20 09:12 Consult Rx Perform Med Rec MISCELLANE ONCE PRN Consult order Senna 17.2 mg 09/18/20 21:00 09/18/20 21:18 Sennosides 8.6 Mg Tablet PO Not Given BEDTIME SARAHI Sodium Chloride 3 ml 09/18/20 16:00 09/19/20 09:20 0.9 % Sodium Chloride Flush 3 Ml Syringe IVFLUSH 3 ml QSHIFT SARAHI Administration Triamterene/Hydrochlorothiazide 1 tab 09/19/20 09:00 09/19/20 09:21 Triamterene/Hctz 37.5/25 Tablet PO Not Given DAILY SARAHI Protocol Labs CBC & Chem 7: 09/19/20 06:19 09/19/20 06:19 Assessment and Plan (1) Intertrochanteric fracture: Status: Acute (2) HTN (hypertension): Status: Acute (3) Alcoholism: Status: Acute Assessment and Plan: 65 year male with HTN, alcoho use here with right hip fracture 1. Right hip mildly displaced fracture -Surgical repair by ortho planned today -Average cardiovascular risk, ECG reviewed no ischemic changes. No further cardiac testing needed 2. HTN--BP high this morning, -Continue home meds (Amlodipine 5, Lisinopril 20 and triamterene hydrochlorothiazide) 3. history of alchol use--he states he last drank a week ago, no signs of withdrawal -Add CIWA -Folic Acid and Thiamine DVT prophylaxis: to be determined after surgery
--- NOTE | 2020-09-19 09:38 | MHC.SHP ---
Pre-Procedural Eval Section A The patient is an INPATIENT: Yes Changes since office visit: Yes Patient answered all questions; No Cold of Flu in the past 2 weeks, No New Medical Problems and No Changes in Medication The History & Physical has been completed within 30 days and I have reviewed it.: Yes Section B Chief Complaint: Right intertrochanteric femur fx Allergies: Allergies Allergy/AdvReac Type Severity Reaction Status Date / Time No Known Allergies Allergy Verified 09/18/20 22:03 [No Known Allergies*] Plan I have reviewed the history and physical and performed a pertinent physical examination on my patient. No changes have occurred unless specified.
--- NOTE | 2020-09-19 11:20 | PM.OP ---
Brief Operative Note Date of Service: 09/19/20 Pre-op diagnosis: left hip IT fracture Post-op diagnosis: same Procedure: left hip IMN Implants: kezia [id number] 125 deg with 120 mm lag and 50 mm distal interlock Surgeon: Naren Walls MD Anesthesia: GETA and local Aircraft Load[employer] Superintendent: Jamila Mancia Estimated blood loss (mL): 100 Tourniquet time (min): 0 IV fluids (mL): 1,200 Pathology: none sent Condition: stable Disposition: PACU
[2020-09-19] MEDS: oxyCODONE HCl Immed Release 5 MG TABLET 10 MG PO (11:56)
[2020-09-19] MEDS: Ketorolac Tromethamine 30 MG/ML VIAL IVPUSH (11:57)
[2020-09-19] MEDS: HYDROmorphone HCl 0.5 MG/0.5 ML SYRINGE IVPUSH ×2 (11:59→12:08)
[2020-09-19] MEDS: ceFAZolin Sodium/Dextrose,Iso 2 GM/50 ML PIGGYBACK IV (14:09)
[2020-09-19] MEDS: Sennosides 8.6 MG TABLET 17.2 MG PO (20:42)
[2020-09-19] MEDS: oxyCODONE HCl Immed Release 5 MG TABLET PO (20:43)
--- NOTE | 2020-09-19 21:13 | OP_ITS ---
SURGEON: Naren Walls MD INDICATIONS: This is a 65-year-old gentleman who sustained a fall 5 days ago and delayed in seeking medical assistance. He was consented to undergo operative intervention for his right hip fracture. PREOPERATIVE DIAGNOSIS: Right intertrochanteric femur fracture. POSTOPERATIVE DIAGNOSIS: Right intertrochanteric femur fracture. PROCEDURE PERFORMED: IM nail, right hip. ESTIMATED BLOOD LOSS: 100 mL. COMPLICATIONS: None known. ANESTHESIA: General and local. ASSISTANTS: Jamila Mancia SPECIMENS: FLUIDS: 1200. IMPLANTS: [place] 380 x 1125 degree cephalomedullary nail with 120 mm hip screw and a 50 mm distal interlock. PROCEDURE IN DETAIL: The patient was brought to the operating room, placed supine on the operative table and prepped and draped in standard sterile fashion. Time-out was called to identify proper site, proper procedure, and proper surgeon. IV antibiotics per weight was administered. I began by applying traction, abduction and internal rotation and was able to reduce the fracture. There was some comminution of the lesser and some apex flexion of the fracture, but I was happy with the reduction. Proximal poke hole was made and my guidewire identified the tip of the greater trochanter. This penetrated the cortex and over-reamed with 15 mm reamer. I then placed my ball-tip guidewire down to the center-center of the distal femur and measured to 380 mm nail. Once this was done, I reamed to 13 and placed 380 x 11 mm nail. Using biplanar fluoroscopy, I then drilled the hip screw into the center-center of the femoral head on both biplanar projections and was happy with the alignment. This was measured and a 120 was drilled and 120 mm hip screw was placed. Once the hip screw was placed, I let off traction and compressed the fracture, and was happy with the reduction and the hardware alignment. I went to the distal femur and using perfect te-moak technique, placed 1 distal locking screw. I took biplanar fluoroscopy both proximally and distally, was happy with the hardware placement and fracture reduction. 20 mL of 0.25% Marcaine was injected in the incisions. The incisions were closed with absorbable suture and oksana. The patient was placed in sterile dressing, extubated, and brought to recovery room in stable condition. There were no known complications. Naren Walls MD NE/MODL / [id number]
[2020-09-20] VITALS (9 sets, daily range): BP systolic 111–146; BP diastolic 47–92; PULSE 70–92; RESP 16–20; TEMP 36.6–37; O2SAT 93–97
[2020-09-20] MEDS: Dextrose 5 % and 0.45 % NaCl 1,000 ML 100 ML IVCONT ×3 (00:04→21:39)
[2020-09-20 06:42] LABS: MANUAL DIFF FLAG NO
[2020-09-20 06:58] LABS: Basophils Percent Auto 0.2 % (0-2); Eosinophils Percent Auto 0.3 % (0-4); Hematocrit 26.4 % (42-52); Hemoglobin 8.8 g/dl (14.0-18.0); Imm Gran Abs Auto 0.05 X10*3/uL (0.00-0.03); Imm Gran Pct Auto 0.4 % (0.0-0.4); Lymphocytes Absolute Auto 1.8 X10*3/uL (1.2-4.9); Mean Corpuscular HGB Conc 33.3 g/dl (31.0-36.0); Mean Corpuscular Hemoglobin 34.6 pg (27.0-33.0); Mean Corpuscular Volume 103.9 fL (80-98); Mean Platelet Volume 11.1 fL (9.4-12.4); Monocytes Absolute Auto 1.4 X10*3/uL (0.1-1.2); Monocytes Percent Auto 11.5 % (2-11); Neutrophils Absolute Auto 8.6 X10*3/uL (2.0-8.3); Neutrophils Percent Auto 72.6 % (45-73); Platelet Count 154 X10*3/uL (160-400); Red Blood Count 2.54 X10*6/uL (4.60-5.80); Red Cell Distribution Width 11.9 % (11.0-16.0); White Blood Count 11.8 X10*3/uL (4.8-10.8)
[2020-09-20 07:22] LABS: Anion Gap 14 (12-20); Blood Urea Nitrogen 13 mg/dL (9-16); Carbon Dioxide 26 mmol/L (22-29); Chloride 103 mmol/L (96-108); Creatinine Clr Calc Pharmacy 141.8; Estimated Glomerular Filt Rate > 60; Glucose Random 139 mg/dL (60-115); Potassium 4.2 mmol/L (3.3-5.1); Sodium 139 mmol/L (135-145)
[2020-09-20] MEDS: Thiamine HCL 100 MG TABLET PO (09:06)
[2020-09-20] MEDS: 0.9 % Sodium Chloride Flush 3 ML SYRINGE IVFLUSH (09:07)
[2020-09-20] MEDS: Triamterene/HCTZ 37.5/25 TABLET 1 TAB PO (09:07)
[2020-09-20] MEDS: Folic Acid 1 MG TABLET PO (09:07)
[2020-09-20] MEDS: amLODIPine Besylate 5 MG TABLET PO (09:07)
[2020-09-20] MEDS: oxyCODONE HCl Immed Release 5 MG TABLET PO ×3 (09:09→21:57)
--- NOTE | 2020-09-20 09:38 | HO.PM.IMPN ---
Subjective Subjective Date of Service: 09/20/20 Interval History: Seen in f/u for hip fracture\. POD 1 for repair, has expected amount of pain Review of Systems Gen: no fever Resp: no sob, no cough CV: no chest, no SESAY, no leg edema GI: No n/v, no abd pain Neuro: No confusion Pain in the right hip Physical Exam Vital Signs: Vital Signs: Last Vital Signs Temp 97.8 F 09/20/20 07:41 Pulse 74 09/20/20 07:41 Resp 16 09/20/20 07:41 BP 146/83 H 09/20/20 07:41 Pulse Ox 97 09/20/20 07:41 Body Mass Index 30.8 Const: General: cooperative and no acute distress Orientation/consciousness: patient oriented x3 Resp: Effort & Inspection: normal respiratory effort and able to speak in complete sentences Cardio: Peripheral pulses: Peripheral pulses 2+ throughout Skin: Other: dressing in place at surgery site Neuro: General: patient oriented x3 Objective Data Current Medications Generic Name Dose Route Start Last Admin Trade Name Sadiqq PRN Reason Stop Dose Admin Acetaminophen 325 mg 09/18/20 14:58 Acetaminophen 325 Mg Tablet PO Q4H PRN Pain, Mild (Pain Scale 1-3) Amlodipine Besylate 5 mg 09/19/20 09:00 09/20/20 09:07 Amlodipine Besylate 5 Mg Tablet PO 5 mg DAILY SARAHI Administration Protocol Fentanyl 25 mcg 09/19/20 11:37 Fentanyl Citrate/Pf 100 Mcg/2 Ml Vial IVPUSH Q5M PRN Pain, Moderate (Pain Scale 4-6 Folic Acid 1 mg 09/19/20 09:30 09/20/20 09:07 Folic Acid 1 Mg Tablet PO 09/21/20 09:01 1 mg DAILY SARAHI Administration Hydromorphone HCl 0.25 mg 09/18/20 14:58 09/20/20 00:00 Hydromorphone Hcl 0.5 Mg/0.5 Ml Syringe IVPUSH 0.25 mg Q4H PRN Administration Pain, Severe (Pain Scale 7-10) Hydromorphone HCl 0.5 mg 09/19/20 11:37 09/19/20 12:08 Hydromorphone Hcl 0.5 Mg/0.5 Ml Syringe IVPUSH 0.5 mg Q5M PRN Administration Pain, Severe (Pain Scale 7-10) Dextrose/Sodium Chloride 1,000 mls @ 100 mls/hr 09/18/20 14:58 09/20/20 00:04 D51/2ns IVCONT 100 mls/hr .Q10H SARAHI Administration Promethazine HCl 12.5 mg/ 50.5 mls @ 202 mls/hr 09/19/20 11:37 Sodium Chloride IV ONCE PRN Nausea and Vomiting Lisinopril 20 mg 09/19/20 09:00 09/20/20 09:06 Lisinopril 20 Mg Tablet PO 20 mg BID SARAHI Administration Protocol Non-Formulary Medication 1 cap 09/19/20 09:00 [place] 9-Krv-Jxu-Fish Oil [Fish Oil] PO DAILY SARAHI Ondansetron HCl 4 mg 09/18/20 14:58 Ondansetron Hcl 4 Mg/2 Ml Vial IVPUSH Q4H PRN Nausea Oxycodone HCl 5 mg 09/18/20 14:58 09/20/20 09:09 Oxycodone Hcl Immed Release 5 Mg Tablet PO 5 mg Q4H PRN Administration Pain, Moderate (Pain Scale 4-6 Pharmacy Consult 1 each 09/18/20 09:12 Consult Rx Perform Med Rec MISCELLANE ONCE PRN Consult order Senna 17.2 mg 09/18/20 21:00 09/19/20 20:42 Sennosides 8.6 Mg Tablet PO 17.2 mg BEDTIME SARAHI Administration Sodium Chloride 3 ml 09/18/20 16:00 09/20/20 09:07 0.9 % Sodium Chloride Flush 3 Ml Syringe IVFLUSH 3 ml QSHIFT SARAHI Administration Thiamine HCl 100 mg 09/19/20 09:30 09/20/20 09:06 Thiamine Hcl 100 Mg Tablet PO 09/21/20 09:01 100 mg DAILY SARAHI Administration Triamterene/Hydrochlorothiazide 1 tab 09/19/20 09:00 09/20/20 09:07 Triamterene/Hctz 37.5/25 Tablet PO 1 tab DAILY SARAHI Administration Protocol Labs CBC & Chem 7: 09/20/20 06:15 09/20/20 06:15 Assessment and Plan (1) Intertrochanteric fracture: Status: Acute (2) HTN (hypertension): Status: Acute (3) Alcoholism: Status: Acute Assessment and Plan: 65 year male with HTN, alcoho use here with right hip fracture 1. Right hip mildly displaced fracture -Surgical repaired 09/19/20 -post op care by ortho 2. HTN--BP ok -Continue home meds (Amlodipine 5, Lisinopril 20 and triamterene hydrochlorothiazide) 3. history of alchol use--he states he last drank a week ago, no signs of withdrawal - CIWA -Folic Acid and Thiamine DVT prophylaxis: to be determined by surgery
[2020-09-20] MEDS: HYDROmorphone HCl 0.5 MG/0.5 ML SYRINGE 0.25 MG IVPUSH ×3 (11:07→21:31)
[2020-09-20] MEDS: Enoxaparin Sodium 40 MG/0.4 ML SYRINGE SUBCUT (11:08)
--- NOTE | 2020-09-20 13:10 | PM.PNORT ---
Subjective Subjective Date of Service: 09/20/20 Principal diagnosis: POD 1 s/p/ Right hip IMN Interval history: POD 1 sp RT hip IMN No overnight events, out of bed to chair with some discomfort . He denies cp, sob, dizziness. Physical Exam Vital Signs: Vital Signs: Last Vital Signs Temp 97.8 F 09/20/20 07:41 Pulse 74 09/20/20 07:41 Resp 16 09/20/20 07:41 BP 146/83 H 09/20/20 07:41 Pulse Ox 97 09/20/20 07:41 Body Mass Index 30.8 Const: General: cooperative, healthy appearing and no acute distress Resp: Effort & Inspection: normal respiratory effort and able to speak in complete sentences Cardio: Rate: regular rate Peripheral pulses: Peripheral pulses 2+ throughout GI: Palpation (GI): Soft to palpation Skin: General skin exam: no rashes or lesions noted Extrem: Other: Right hip bandage intact, no erythema, mild swelling. sensation intact, pulses present. Progress Note: A&P Assessment and plan (1) Intertrochanteric fracture: Status: Acute Assessment and Plan: Continue pain mgmnt Begin lovenox for dvt ppx begin PT / OT for Left hip lesley Dispo planning-Pending PT eval, pain mgmnt Fall Risk Details Current Medications: Current Medications Generic Name Dose Route Start Last Admin Trade Name Freq PRN Reason Stop Dose Admin Acetaminophen 325 mg 09/18/20 14:58 Acetaminophen 325 Mg Tablet PO Q4H PRN Pain, Mild (Pain Scale 1-3) Amlodipine Besylate 5 mg 09/19/20 09:00 09/20/20 09:07 Amlodipine Besylate 5 Mg Tablet PO 5 mg DAILY SARAHI Administration Protocol Enoxaparin Sodium 40 mg 09/20/20 12:00 09/20/20 11:08 Enoxaparin Sodium 40 Mg/0.4 Ml Syringe SUBCUT 40 mg Q24H SARAHI Administration Folic Acid 1 mg 09/19/20 09:30 09/20/20 09:07 Folic Acid 1 Mg Tablet PO 09/21/20 09:01 1 mg DAILY SARAHI Administration Hydromorphone HCl 0.25 mg 09/18/20 14:58 09/20/20 11:07 Hydromorphone Hcl 0.5 Mg/0.5 Ml Syringe IVPUSH 0.25 mg Q4H PRN Administration Pain, Severe (Pain Scale 7-10) Dextrose/Sodium Chloride 1,000 mls @ 100 mls/hr 09/18/20 14:58 09/20/20 11:00 D51/2ns IVCONT 100 mls/hr .Q10H SARAHI Administration Lisinopril 20 mg 09/19/20 09:00 09/20/20 09:06 Lisinopril 20 Mg Tablet PO 20 mg BID SARAHI Administration Protocol Ondansetron HCl 4 mg 09/18/20 14:58 Ondansetron Hcl 4 Mg/2 Ml Vial IVPUSH Q4H PRN Nausea Oxycodone HCl 5 mg 09/18/20 14:58 09/20/20 09:09 Oxycodone Hcl Immed Release 5 Mg Tablet PO 5 mg Q4H PRN Administration Pain, Moderate (Pain Scale 4-6 Pharmacy Consult 1 each 09/18/20 09:12 Consult Rx Perform Med Rec MISCELLANE ONCE PRN Consult order Senna 17.2 mg 09/18/20 21:00 09/19/20 20:42 Sennosides 8.6 Mg Tablet PO 17.2 mg BEDTIME SARAHI Administration Sodium Chloride 3 ml 09/18/20 16:00 09/20/20 09:07 0.9 % Sodium Chloride Flush 3 Ml Syringe IVFLUSH 3 ml QSHIFT SARAHI Administration Thiamine HCl 100 mg 09/19/20 09:30 09/20/20 09:06 Thiamine Hcl 100 Mg Tablet PO 09/21/20 09:01 100 mg DAILY SARAHI Administration Triamterene/Hydrochlorothiazide 1 tab 09/19/20 09:00 09/20/20 09:07 Triamterene/Hctz 37.5/25 Tablet PO 1 tab DAILY SARAHI Administration Protocol Time Spent With Patient Time: Total time spent is greater than 50% in coordination of care (as documented) at patient's floor/unit and/or counseling patient: Time with patient: 15 - 24 minutes
--- NOTE | 2020-09-20 16:12 | HO.POSTANES ---
Post Anesthesia Evaluation Post Anesthesia Evaluation Vital Signs: Vital Signs Temp Pulse Resp BP Pulse Ox 09/20/20 15:55 98.1 F 78 18 127/62 93 09/20/20 12:00 17 09/20/20 07:41 97.8 F 74 16 146/83 H 97 Anesthesia: General LMA Mental Status: Awake Pain Control: Satisfactory Nausea/Vomiting: None Hydration: Adequate Anesthesia-Related Issues: No Anes. Related Issues
[2020-09-20] MEDS: Sennosides 8.6 MG TABLET 17.2 MG PO (21:38)
[2020-09-21] VITALS (9 sets, daily range): BP systolic 135–155; BP diastolic 66–82; PULSE 74–82; RESP 19–20; TEMP 36.3–37.2; O2SAT 93–96; BMI 30.8
[2020-09-21] MEDS: HYDROmorphone HCl 0.5 MG/0.5 ML SYRINGE 0.25 MG IVPUSH ×3 (04:09→16:43)
[2020-09-21] MEDS: Dextrose 5 % and 0.45 % NaCl 1,000 ML 100 ML IVCONT ×2 (04:11→14:05)
[2020-09-21 07:11] LABS: Basophils Absolute Auto 0.1 X10*3/uL (0.0-0.2); Basophils Percent Auto 0.7 % (0-2); Eosinophils Absolute Auto 0.3 X10*3/uL (0.0-0.4); Eosinophils Percent Auto 3.1 % (0-4); Hematocrit 26.2 % (42-52); Hemoglobin 8.9 g/dl (14.0-18.0); Imm Gran Abs Auto 0.04 X10*3/uL (0.00-0.03); Imm Gran Pct Auto 0.4 % (0.0-0.4); Lymphocytes Absolute Auto 2.8 X10*3/uL (1.2-4.9); Lymphocytes Percent Auto 27.1 % (20-40); MANUAL DIFF FLAG SCAN; Mean Corpuscular Volume 103.1 fL (80-98); Mean Platelet Volume 10.9 fL (9.4-12.4); Monocytes Absolute Auto 1.6 X10*3/uL (0.1-1.2); Monocytes Percent Auto 15.9 % (2-11); Neutrophils Absolute Auto 5.4 X10*3/uL (2.0-8.3); Neutrophils Percent Auto 52.8 % (45-73); Platelet Count 161 X10*3/uL (160-400); Red Blood Count 2.54 X10*6/uL (4.60-5.80); Red Cell Distribution Width 12.4 % (11.0-16.0); SCAN SMEAR FLAG 1; White Blood Count 10.3 X10*3/uL (4.8-10.8)
[2020-09-21 07:43] LABS: Anion Gap 9 (12-20); Blood Urea Nitrogen 11 mg/dL (9-16); Calcium 8.1 mg/dL (8.4-10.2); Carbon Dioxide 31 mmol/L (22-29); Chloride 102 mmol/L (96-108); Creatinine Clr Calc Pharmacy 139.8; Estimated Glomerular Filt Rate > 60; Glucose Random 124 mg/dL (60-115); Potassium 3.9 mmol/L (3.3-5.1); Sodium 138 mmol/L (135-145)
[2020-09-21 08:01] LABS: SLIDE REVIEW VERIFIED
[2020-09-21] MEDS: Thiamine HCL 100 MG TABLET PO (08:27)
[2020-09-21] MEDS: amLODIPine Besylate 5 MG TABLET PO (08:27)
--- NOTE | 2020-09-21 10:10 | PM.PNORT ---
Subjective Subjective Date of Service: 09/21/20 Principal diagnosis: POD 2 s/p/ Right hip IMN Interval history: No overnight events, pain more managable today. He is in chair, will work more with PT later today. Denies cp, sob, dizziness Physical Exam Vital Signs: Vital Signs: Last Vital Signs Temp 98.6 F 09/21/20 07:32 Pulse 77 09/21/20 08:36 Resp 19 09/21/20 07:32 BP 155/82 H 09/21/20 08:36 Pulse Ox 94 09/21/20 08:36 Body Mass Index 30.8 Const: General: cooperative, healthy appearing and no acute distress Resp: Effort & Inspection: normal respiratory effort and able to speak in complete sentences Cardio: Rate: regular rate Peripheral pulses: Peripheral pulses 2+ throughout GI: Palpation (GI): Soft to palpation Skin: General skin exam: no rashes or lesions noted Extrem: Other: Right hip incision c/d/i. no erythema, mild swelling, sensation intact Progress Note: A&P Assessment and plan (1) Intertrochanteric fracture: Status: Acute Assessment and Plan: Continue pain mgmnt cont dvt ppx cont PT/OT right hip Dispo planning-Pending PT eval, pain mgmnt Fall Risk Details Current Medications: Current Medications Generic Name Dose Route Start Last Admin Trade Name Freq PRN Reason Stop Dose Admin Acetaminophen 325 mg 09/18/20 14:58 Acetaminophen 325 Mg Tablet PO Q4H PRN Pain, Mild (Pain Scale 1-3) Amlodipine Besylate 5 mg 09/19/20 09:00 09/21/20 08:27 Amlodipine Besylate 5 Mg Tablet PO 5 mg DAILY SARAHI Administration Protocol Enoxaparin Sodium 40 mg 09/20/20 12:00 09/20/20 11:08 Enoxaparin Sodium 40 Mg/0.4 Ml Syringe SUBCUT 40 mg Q24H SARAHI Administration Hydromorphone HCl 0.25 mg 09/18/20 14:58 09/21/20 08:26 Hydromorphone Hcl 0.5 Mg/0.5 Ml Syringe IVPUSH 0.25 mg Q4H PRN Administration Pain, Severe (Pain Scale 7-10) Dextrose/Sodium Chloride 1,000 mls @ 100 mls/hr 09/18/20 14:58 09/21/20 04:11 D51/2ns IVCONT 100 mls/hr .Q10H SARAHI Administration Lisinopril 20 mg 09/19/20 09:00 09/21/20 08:27 Lisinopril 20 Mg Tablet PO 20 mg BID SARAHI Administration Protocol Ondansetron HCl 4 mg 09/18/20 14:58 Ondansetron Hcl 4 Mg/2 Ml Vial IVPUSH Q4H PRN Nausea Oxycodone HCl 5 mg 09/18/20 14:58 09/20/20 21:57 Oxycodone Hcl Immed Release 5 Mg Tablet PO 5 mg Q4H PRN Administration Pain, Moderate (Pain Scale 4-6 Pharmacy Consult 1 each 09/18/20 09:12 Consult Rx Perform Med Rec MISCELLANE ONCE PRN Consult order Senna 17.2 mg 09/18/20 21:00 09/20/20 21:38 Sennosides 8.6 Mg Tablet PO 17.2 mg BEDTIME SARAHI Administration Sodium Chloride 3 ml 09/18/20 16:00 09/21/20 08:27 0.9 % Sodium Chloride Flush 3 Ml Syringe IVFLUSH Not Given QSHIFT SARAHI Triamterene/Hydrochlorothiazide 1 tab 09/19/20 09:00 09/20/20 09:07 Triamterene/Hctz 37.5/25 Tablet PO 1 tab DAILY SARAHI Administration Protocol Time Spent With Patient Time: Total time spent is greater than 50% in coordination of care (as documented) at patient's floor/unit and/or counseling patient: Time with patient: 15 - 24 minutes
[2020-09-21] MEDS: Triamterene/HCTZ 37.5/25 TABLET 1 TAB PO (10:25)
[2020-09-21] MEDS: Folic Acid 1 MG TABLET PO (10:25)
--- NOTE | 2020-09-21 11:49 | HO.PM.IMPN ---
Subjective Subjective Date of Service: 09/21/20 Interval History: no complaints Constitutional Constitutional: Denies fever(s) Cardiovascular Cardiovascular: Denies chest pain Respiratory Respiratory: Denies cough Gastrointestinal Gastrointestinal: Reports no additional gastrointestinal complaints Musculoskeletal Musculoskeletal: Reports arthralgias Physical Exam Vital Signs: Vital Signs: Last Vital Signs Temp 97.3 F 09/21/20 11:27 Pulse 75 09/21/20 11:27 Resp 20 09/21/20 11:27 BP 140/73 H 09/21/20 11:27 Pulse Ox 95 09/21/20 11:27 Body Mass Index 30.8 Const: General: cooperative; No acute distress Orientation/consciousness: patient oriented x3 Chest: Chest palpation & inspection: normal inspection of the chest Resp: Effort & Inspection: normal respiratory effort Auscultation: clear to auscultation bilaterally Cardio: Rate: regular rate Rhythm: regular rhythm GI: Inspection: Yes normal to inspection Neuro: General: patient oriented x3 Extrem: Other: R hip incision clean/dry/intact Objective Data Current Medications Generic Name Dose Route Start Last Admin Trade Name Freq PRN Reason Stop Dose Admin Acetaminophen 325 mg 09/18/20 14:58 Acetaminophen 325 Mg Tablet PO Q4H PRN Pain, Mild (Pain Scale 1-3) Amlodipine Besylate 5 mg 09/19/20 09:00 09/21/20 08:27 Amlodipine Besylate 5 Mg Tablet PO 5 mg DAILY SARAHI Administration Protocol Enoxaparin Sodium 40 mg 09/20/20 12:00 09/20/20 11:08 Enoxaparin Sodium 40 Mg/0.4 Ml Syringe SUBCUT 40 mg Q24H SARAHI Administration Hydromorphone HCl 0.25 mg 09/18/20 14:58 09/21/20 08:26 Hydromorphone Hcl 0.5 Mg/0.5 Ml Syringe IVPUSH 0.25 mg Q4H PRN Administration Pain, Severe (Pain Scale 7-10) Dextrose/Sodium Chloride 1,000 mls @ 100 mls/hr 09/18/20 14:58 09/21/20 04:11 D51/2ns IVCONT 100 mls/hr .Q10H SARAHI Administration Lisinopril 20 mg 09/19/20 09:00 09/21/20 08:27 Lisinopril 20 Mg Tablet PO 20 mg BID SARAHI Administration Protocol Ondansetron HCl 4 mg 09/18/20 14:58 Ondansetron Hcl 4 Mg/2 Ml Vial IVPUSH Q4H PRN Nausea Oxycodone HCl 5 mg 09/18/20 14:58 09/20/20 21:57 Oxycodone Hcl Immed Release 5 Mg Tablet PO 5 mg Q4H PRN Administration Pain, Moderate (Pain Scale 4-6 Pharmacy Consult 1 each 09/18/20 09:12 Consult Rx Perform Med Rec MISCELLANE ONCE PRN Consult order Senna 17.2 mg 09/18/20 21:00 09/20/20 21:38 Sennosides 8.6 Mg Tablet PO 17.2 mg BEDTIME SARAHI Administration Sodium Chloride 3 ml 09/18/20 16:00 09/21/20 08:27 0.9 % Sodium Chloride Flush 3 Ml Syringe IVFLUSH Not Given QSHIFT SARAHI Triamterene/Hydrochlorothiazide 1 tab 09/19/20 09:00 09/21/20 10:25 Triamterene/Hctz 37.5/25 Tablet PO 1 tab DAILY SARAHI Administration Protocol Labs CBC & Chem 7: 09/21/20 06:15 09/21/20 06:15 Assessment and Plan (1) Intertrochanteric fracture: Status: Acute (2) HTN (hypertension): Status: Acute (3) Alcoholism: Status: Acute Assessment and Plan: hosp d#3 65yo M admitted to Ortho for intertrochanteric R hip fx medicine consult for mgmt of comorbid conditions # HTN - BP controlled on home meds: amlodipine, lisinopril, triamterene/HCTZ # hx heavy EtOH abuse [though pt minimizes] - no signs of withdrawal - continue vitamin supplementation # POD #2 R hip IMN - VTE ppx with LMWH - PT
[2020-09-21] MEDS: Enoxaparin Sodium 40 MG/0.4 ML SYRINGE SUBCUT (12:11)
[2020-09-21] MEDS: oxyCODONE HCl Immed Release 5 MG TABLET PO ×2 (12:11→21:11)
--- NOTE | 2020-09-21 14:58 | MHC.CM.PN ---
PER CONVERSATION WITH FINANCIAL COUNSELOR, PATIENT IS NOW ELIGIBLE FOR [facility], WHICH WILL SHOW UP IN EXPANSE WITHIN 24 HOURS. ONCE PATIENT CHOOSES A PLAN, INFORMATION WILL NOT BE MADE AVAILABLE UNTIL POSSIBLY MONDAY OR MONDAY OF THIS WEEK.
[2020-09-21] MEDS: 0.9 % Sodium Chloride Flush 3 ML SYRINGE IVFLUSH (16:48)
[2020-09-21] MEDS: Sennosides 8.6 MG TABLET 17.2 MG PO (21:11)
[2020-09-22] VITALS (13 sets, daily range): BP systolic 106–154; BP diastolic 65–88; PULSE 71–88; RESP 16–20; TEMP 36.7–37.3; O2SAT 93–98
[2020-09-22] MEDS: 0.9 % Sodium Chloride Flush 3 ML SYRINGE IVFLUSH ×4 (01:20→23:49)
[2020-09-22] MEDS: HYDROmorphone HCl 0.5 MG/0.5 ML SYRINGE 0.25 MG IVPUSH ×4 (05:26→23:56)
[2020-09-22 07:24] LABS: Basophils Percent Auto 0.4 % (0-2); Eosinophils Absolute Auto 0.2 X10*3/uL (0.0-0.4); Hematocrit 28.3 % (42-52); Hemoglobin 9.7 g/dl (14.0-18.0); Imm Gran Abs Auto 0.04 X10*3/uL (0.00-0.03); Imm Gran Pct Auto 0.4 % (0.0-0.4); Lymphocytes Percent Auto 20.2 % (20-40); MANUAL DIFF FLAG SCAN; Mean Corpuscular HGB Conc 34.3 g/dl (31.0-36.0); Mean Corpuscular Volume 102.2 fL (80-98); Mean Platelet Volume 11.1 fL (9.4-12.4); Monocytes Absolute Auto 1.7 X10*3/uL (0.1-1.2); Monocytes Percent Auto 17.8 % (2-11); Neutrophils Absolute Auto 5.7 X10*3/uL (2.0-8.3); Neutrophils Percent Auto 59.2 % (45-73); Platelet Count 185 X10*3/uL (160-400); Red Blood Count 2.77 X10*6/uL (4.60-5.80); Red Cell Distribution Width 12.6 % (11.0-16.0); SCAN SMEAR FLAG 1; White Blood Count 9.7 X10*3/uL (4.8-10.8)
[2020-09-22] MEDS: Triamterene/HCTZ 37.5/25 TABLET 1 TAB PO (07:29)
[2020-09-22] MEDS: amLODIPine Besylate 5 MG TABLET PO (07:29)
[2020-09-22] MEDS: oxyCODONE HCl Immed Release 5 MG TABLET PO ×2 (07:29→15:26)
[2020-09-22 07:53] LABS: Anion Gap 12 (12-20); Blood Urea Nitrogen 8 mg/dL (9-16); Calcium 8.5 mg/dL (8.4-10.2); Carbon Dioxide 30 mmol/L (22-29); Chloride 100 mmol/L (96-108); Creatinine Clr Calc Pharmacy 143.9; Estimated Glomerular Filt Rate > 60; Glucose Random 122 mg/dL (60-115); Sodium 138 mmol/L (135-145)
--- NOTE | 2020-09-22 08:31 | PM.PNORT ---
Subjective Subjective Date of Service: 09/22/20 Principal diagnosis: POD 2 s/p/ Right hip IMN Interval history: POD3 s/p rt hip IMN pt. resting comfortably in bed. States that he has some groin pain and difficulty sleeping due to pain. No overnight events. Physical Exam Vital Signs: Vital Signs: Last Vital Signs Temp 98.2 F 09/22/20 04:00 Pulse 76 09/22/20 07:28 Resp 20 09/22/20 05:26 BP 141/88 H 09/22/20 07:28 Pulse Ox 96 09/22/20 07:28 Body Mass Index 30.8 Const: General: cooperative, healthy appearing and no acute distress Resp: Effort & Inspection: normal respiratory effort and able to speak in complete sentences Cardio: Rate: regular rate Peripheral pulses: Peripheral pulses 2+ throughout GI: Palpation (GI): Soft to palpation Skin: Lesions: no lesions Rashes: no rashes Extrem: Other: No ecchymosis, redness, or drainage. Dressing is clean, dry and intact. NVI Progress Note: A&P Assessment and plan (1) Intertrochanteric fracture: Status: Acute Assessment and Plan: Continue pain mgmnt Contiue Lovenox for dvt ppx Continue PT for rt hip IMN Dispo planning-Pending PT eval, pain mgmnt Fall Risk Details Current Medications: Current Medications Generic Name Dose Route Start Last Admin Trade Name Freq PRN Reason Stop Dose Admin Acetaminophen 325 mg 09/18/20 14:58 Acetaminophen 325 Mg Tablet PO Q4H PRN Pain, Mild (Pain Scale 1-3) Amlodipine Besylate 5 mg 09/19/20 09:00 09/22/20 07:29 Amlodipine Besylate 5 Mg Tablet PO 5 mg DAILY SARAHI Administration Protocol Enoxaparin Sodium 40 mg 09/20/20 12:00 09/21/20 12:11 Enoxaparin Sodium 40 Mg/0.4 Ml Syringe SUBCUT 40 mg Q24H SARAHI Administration Hydromorphone HCl 0.25 mg 09/18/20 14:58 09/22/20 05:26 Hydromorphone Hcl 0.5 Mg/0.5 Ml Syringe IVPUSH 0.25 mg Q4H PRN Administration Pain, Severe (Pain Scale 7-10) Lisinopril 20 mg 09/19/20 09:00 09/22/20 07:29 Lisinopril 20 Mg Tablet PO 20 mg BID SARAHI Administration Protocol Ondansetron HCl 4 mg 09/18/20 14:58 Ondansetron Hcl 4 Mg/2 Ml Vial IVPUSH Q4H PRN Nausea Oxycodone HCl 5 mg 09/18/20 14:58 09/22/20 07:29 Oxycodone Hcl Immed Release 5 Mg Tablet PO 5 mg Q4H PRN Administration Pain, Moderate (Pain Scale 4-6 Pharmacy Consult 1 each 09/18/20 09:12 Consult Rx Perform Med Rec MISCELLANE ONCE PRN Consult order Senna 17.2 mg 09/18/20 21:00 09/21/20 21:11 Sennosides 8.6 Mg Tablet PO 17.2 mg BEDTIME SARAHI Administration Sodium Chloride 3 ml 09/18/20 16:00 09/22/20 08:26 0.9 % Sodium Chloride Flush 3 Ml Syringe IVFLUSH 3 ml QSHIFT SARAHI Administration Triamterene/Hydrochlorothiazide 1 tab 09/19/20 09:00 09/22/20 07:29 Triamterene/Hctz 37.5/25 Tablet PO 1 tab DAILY SARAHI Administration Protocol Time Spent With Patient Time: Total time spent is greater than 50% in coordination of care (as documented) at patient's floor/unit and/or counseling patient: Time with patient: less than 15 minutes
[2020-09-22 08:46] LABS: SLIDE REVIEW VERIFIED
--- NOTE | 2020-09-22 10:38 | P.PNIM_ITS ---
Subjective Subjective Date of Service: 09/22/20 Interval History: R hip pain No fever, chest pain, or dyspnea Physical Exam Vital Signs: Vital Signs: Last Vital Signs Temp 98.5 F 09/22/20 09:16 Pulse 79 09/22/20 09:16 Resp 16 09/22/20 09:16 BP 106/65 09/22/20 09:16 Pulse Ox 93 09/22/20 09:16 Body Mass Index 30.8 Const: General: cooperative; No acute distress Orientation/consciousness: patient oriented x3 Chest: Chest palpation & inspection: normal inspection of the chest Resp: Effort & Inspection: normal respiratory effort Auscultation: clear to auscultation bilaterally Cardio: Rate: regular rate Rhythm: regular rhythm GI: Inspection: Yes normal to inspection Neuro: General: patient oriented x3 Extrem: Other: R hip incision clean/dry/intact Objective Data Current Medications Generic Name Dose Route Start Last Admin Trade Name Freq PRN Reason Stop Dose Admin Acetaminophen 325 mg 09/18/20 14:58 Acetaminophen 325 Mg Tablet PO Q4H PRN Pain, Mild (Pain Scale 1-3) Amlodipine Besylate 5 mg 09/19/20 09:00 09/22/20 07:29 Amlodipine Besylate 5 Mg Tablet PO 5 mg DAILY SARAHI Administration Protocol Enoxaparin Sodium 40 mg 09/20/20 12:00 09/21/20 12:11 Enoxaparin Sodium 40 Mg/0.4 Ml Syringe SUBCUT 40 mg Q24H SARAHI Administration Hydromorphone HCl 0.25 mg 09/18/20 14:58 09/22/20 05:26 Hydromorphone Hcl 0.5 Mg/0.5 Ml Syringe IVPUSH 0.25 mg Q4H PRN Administration Pain, Severe (Pain Scale 7-10) Lisinopril 20 mg 09/19/20 09:00 09/22/20 07:29 Lisinopril 20 Mg Tablet PO 20 mg BID SARAHI Administration Protocol Ondansetron HCl 4 mg 09/18/20 14:58 Ondansetron Hcl 4 Mg/2 Ml Vial IVPUSH Q4H PRN Nausea Oxycodone HCl 5 mg 09/18/20 14:58 09/22/20 07:29 Oxycodone Hcl Immed Release 5 Mg Tablet PO 5 mg Q4H PRN Administration Pain, Moderate (Pain Scale 4-6 Pharmacy Consult 1 each 09/18/20 09:12 Consult Rx Perform Med Rec MISCELLANE ONCE PRN Consult order Senna 17.2 mg 09/18/20 21:00 09/21/20 21:11 Sennosides 8.6 Mg Tablet PO 17.2 mg BEDTIME SARAHI Administration Sodium Chloride 3 ml 09/18/20 16:00 09/22/20 08:26 0.9 % Sodium Chloride Flush 3 Ml Syringe IVFLUSH 3 ml QSHIFT SARAHI Administration Triamterene/Hydrochlorothiazide 1 tab 09/19/20 09:00 09/22/20 07:29 Triamterene/Hctz 37.5/25 Tablet PO 1 tab DAILY SARAHI Administration Protocol Labs CBC & Chem 7: 09/22/20 06:44 09/22/20 06:44 Labs: Laboratory Results - last 24 hr 09/22/20 09/22/20 06:44 06:44 WBC 9.7 RBC 2.77 L Hgb 9.7 L Hct 28.3 L MCV 102.2 H MCH 35.0 H MCHC 34.3 RDW 12.6 Plt Count 185 MPV 11.1 Immature Gran % (Auto) 0.4 Neut % (Auto) 59.2 Lymph % (Auto) 20.2 [place] % (Auto) 17.8 H Eos % (Auto) 2.0 Baso % (Auto) 0.4 Lymph # (Auto) 2.0 [place] # (Auto) 1.7 H Eos # (Auto) 0.2 Baso # (Auto) 0.0 Abs Immat Gran (auto) 0.04 H Absolute Neuts (auto) 5.7 Absolute Nucleated RBC 0.000 Nucleated RBC % (auto) 0.0 Smear Tech's Comments VERIFIED Sodium 138 Potassium 4.0 Chloride 100 Carbon Dioxide 30 H Anion Gap 12 BUN 8 L Creatinine 0.69 Estim Creat Clear Calc 143.9 Estimated GFR > 60 Random Glucose 122 H Calcium 8.5 Assessment and Plan (1) Intertrochanteric fracture: Status: Acute (2) HTN (hypertension): Status: Acute (3) Alcoholism: Status: Acute Assessment and Plan: hosp d#4 65yo M admitted to Ortho for intertrochanteric R hip fx medicine consult for mgmt of comorbid conditions # HTN - BP controlled on home meds: amlodipine, lisinopril, triamterene/HCTZ # hx heavy EtOH abuse [though pt minimizes] - no signs of withdrawal - continue vitamin supplementation # POD #3 R hip IMN - VTE ppx with LMWH - analgesia + dispo planning as per Ortho
[2020-09-22] MEDS: Enoxaparin Sodium 40 MG/0.4 ML SYRINGE SUBCUT (11:48)
--- NOTE | 2020-09-22 16:04 | MHC.CM.PN ---
earlier today pt was accepted at [facility]. pt accepted the bed offer. MDS has been completed and patient is ready to go . however, at this time we are still waiting for rapid covid results . pt will need this prior to official acceptance at [facility] . rn and pa caring for patient are aware of this and most likely patient will have to go tomorrow c a completed dc summary. cm to cont. to follow.
[2020-09-22 16:13] LABS: COVID-19 Test Negative (Negative); IDNOW Serial# 9DD0AD1C
[2020-09-22] MEDS: Sennosides 8.6 MG TABLET 17.2 MG PO (20:53)
[2020-09-23 04:00] VITALS: BP 164/87; PULSE 76; RESP 16; TEMP 36.8; O2SAT 93
[2020-09-23 06:50] LABS: Basophils Absolute Auto 0.1 X10*3/uL (0.0-0.2); Basophils Percent Auto 0.5 % (0-2); Eosinophils Absolute Auto 0.3 X10*3/uL (0.0-0.4); Eosinophils Percent Auto 2.8 % (0-4); Hematocrit 27.6 % (42-52); Hemoglobin 9.6 g/dl (14.0-18.0); Imm Gran Abs Auto 0.02 X10*3/uL (0.00-0.03); Imm Gran Pct Auto 0.2 % (0.0-0.4); Lymphocytes Absolute Auto 2.3 X10*3/uL (1.2-4.9); Lymphocytes Percent Auto 23.5 % (20-40); MANUAL DIFF FLAG SCAN; Mean Corpuscular HGB Conc 34.8 g/dl (31.0-36.0); Mean Corpuscular Hemoglobin 35.3 pg (27.0-33.0); Mean Corpuscular Volume 101.5 fL (80-98); Mean Platelet Volume 10.7 fL (9.4-12.4); Monocytes Absolute Auto 1.7 X10*3/uL (0.1-1.2); Monocytes Percent Auto 17.7 % (2-11); Neutrophils Absolute Auto 5.4 X10*3/uL (2.0-8.3); Neutrophils Percent Auto 55.3 % (45-73); Platelet Count 203 X10*3/uL (160-400); Red Blood Count 2.72 X10*6/uL (4.60-5.80); Red Cell Distribution Width 12.5 % (11.0-16.0); SCAN SMEAR FLAG 1; White Blood Count 9.7 X10*3/uL (4.8-10.8)
[2020-09-23 07:14] LABS: Anion Gap 12 (12-20); Blood Urea Nitrogen 12 mg/dL (9-16); Calcium 8.9 mg/dL (8.4-10.2); Carbon Dioxide 32 mmol/L (22-29); Chloride 98 mmol/L (96-108); Creatinine Clr Calc Pharmacy 139.8; Estimated Glomerular Filt Rate > 60; Glucose Random 124 mg/dL (60-115); Potassium 4.1 mmol/L (3.3-5.1); Sodium 138 mmol/L (135-145)
[2020-09-23 07:28] VITALS: BP 140/85; PULSE 76; RESP 17; TEMP 36.7; O2SAT 93
--- NOTE | 2020-09-23 08:02 | PM.DS ---
DS: Providers Provider Date of Service: 09/23/20 Date of admission: 09/18/20 12:33 Primary care physician: Xu Christianson MD Consults: 09/18/20 14:58 Consult to Hospitalist Routine Consulting Provider: Hospitalist Reason for consultation: preop clearance DS: Diagnosis Discharge Diagnosis (1) HTN (hypertension): Status: Acute Problem details: MR. Live is a 65 yo gentleman who presented to the ED with a right intertrochanteric fracture. He was admitted to the orthopedic service and consented to undergo operative fixation of the right hip. DS: Medications Discharge Medications Home Medications: Home Medications Medication Instructions Recorded Confirmed amlodipine 5 mg PO DAILY 09/18/20 09/18/20 lisinopril 20 mg PO BID 09/18/20 09/18/20 omega 0-[id number]-fish oil [Fish Oil] 1 cap PO DAILY 09/18/20 09/18/20 triamterene-hydrochlorothiazid 1 tab PO DAILY 09/18/20 09/18/20 Previous Rx's Medication Instructions Recorded acetaminophen 325 mg PO Q4H PRN 30 Days #240 tab 09/22/20 enoxaparin 40 mg SUBCUT Q24H 30 Days #12 ml 09/22/20 oxycodone 5 mg PO Q4H PRN 7 Days #42 tab 09/22/20 sennosides [Senna Lax] 17.2 mg PO BEDTIME 30 Days #60 tab 09/22/20 DS: Summary Hospital Course Hospital Course: The patient underwent a successful operative fixation of the right hip, was transferred to PACU and then to the floor to recover. During their stay, their vitals were stable, afebrile at 98.1. Labs were unremarkable, H/H 9.7/28.3. POD 1 He was started on lovenox for DVT ppx, they also received PT/OT services twice a day. Prior to discharge, their dressing was change, incision clean dry and intact, new dry dressing applied and the plan was to be discharged to [facility] Time spent discussing smoking cessation with patient: more than 10 minutes Time Spent with Patient Time attestation: Total time spent providing and/or coordinating discharge services: Discharge coordination time: Greater than 30 minutes Physical Exam Vital Signs: Vital Signs: Last Vital Signs Temp 98.1 F 09/23/20 07:28 Pulse 76 09/23/20 07:28 Resp 17 09/23/20 07:28 BP 140/85 H 09/23/20 07:28 Pulse Ox 93 09/23/20 07:28 Body Mass Index 30.8 Const: General: cooperative, healthy appearing and no acute distress Resp: Effort & Inspection: normal respiratory effort and able to speak in complete sentences Cardio: Rate: regular rate Peripheral pulses: Peripheral pulses 2+ throughout GI: Palpation (GI): Soft to palpation Skin: General skin exam: no rashes or lesions noted Extrem: Other: Right hip incision clean dry and intact. no erythema, mild edema, pulses present. sensation intact DS: Data Data Completed and Pending Labs on day of discharge: Laboratory Tests 09/18/20 09/18/20 09/18/20 10:38 10:38 10:38 WBC 8.3 RBC 2.98 L Hgb 10.5 L Hct 30.6 L MCV 102.7 H MCH 35.2 H MCHC 34.3 RDW 12.3 Plt Count 163 MPV 11.0 Immature Gran % (Auto) 0.2 Neut % (Auto) 70.1 Lymph % (Auto) 16.7 L [place] % (Auto) 10.4 Eos % (Auto) 2.1 Baso % (Auto) 0.5 Lymph # (Auto) 1.4 [place] # (Auto) 0.9 Eos # (Auto) 0.2 Baso # (Auto) 0.0 Abs Immat Gran (auto) 0.02 Absolute Neuts (auto) 5.8 Absolute Nucleated RBC 0.000 Nucleated RBC % (auto) 0.0 Smear Tech's Comments PT INR APTT Sodium 141 Potassium 3.7 Chloride 104 Carbon Dioxide 27 Anion Gap 14 BUN 24 H Creatinine 0.79 Estim Creat Clear Calc 125.7 Estimated GFR > 60 Random Glucose 132 H Lactic Acid Calcium 8.4 Magnesium 1.6 Total Bilirubin 1.8 H Direct Bilirubin 0.8 H AST 57 H ALT 34 Alkaline Phosphatase 59 Total Creatine Kinase 239 H Troponin I High Sens Total Protein 5.8 L Albumin 3.4 L Lipase Stool Occult Blood Ethyl Alcohol < 10 COVID-19 ([facility]) COVID-19 Clin Com Blood Type Antibody Screen 09/18/20 09/18/20 09/18/20 10:38 10:38 10:38 WBC RBC Hgb Hct MCV MCH MCHC RDW Plt Count MPV Immature Gran % (Auto) Neut % (Auto) Lymph % (Auto) [place] % (Auto) Eos % (Auto) Baso % (Auto) Lymph # (Auto) [place] # (Auto) Eos # (Auto) Baso # (Auto) Abs Immat Gran (auto) Absolute Neuts (auto) Absolute Nucleated RBC Nucleated RBC % (auto) Smear Tech's Comments PT 14.5 H INR 1.2 H APTT 27.7 Sodium Potassium Chloride Carbon Dioxide Anion Gap BUN Creatinine Estim Creat Clear Calc Estimated GFR Random Glucose Lactic Acid 1.9 Calcium Magnesium Total Bilirubin Direct Bilirubin AST ALT Alkaline Phosphatase Total Creatine Kinase Troponin I High Sens 8.0 Total Protein Albumin Lipase Stool Occult Blood Ethyl Alcohol COVID-19 ([facility]) COVID-19 Clin Com Blood Type Antibody Screen 09/18/20 09/18/20 09/18/20 10:38 11:46 11:46 WBC RBC Hgb Hct MCV MCH MCHC RDW Plt Count MPV Immature Gran % (Auto) Neut % (Auto) Lymph % (Auto) [place] % (Auto) Eos % (Auto) Baso % (Auto) Lymph # (Auto) [place] # (Auto) Eos # (Auto) Baso # (Auto) Abs Immat Gran (auto) Absolute Neuts (auto) Absolute Nucleated RBC Nucleated RBC % (auto) Smear Tech's Comments PT INR APTT Sodium Potassium Chloride Carbon Dioxide Anion Gap BUN Creatinine Estim Creat Clear Calc Estimated GFR Random Glucose Lactic Acid Calcium Magnesium Total Bilirubin Direct Bilirubin AST ALT Alkaline Phosphatase Total Creatine Kinase Troponin I High Sens Total Protein Albumin Lipase 49 Stool Occult Blood NEG Ethyl Alcohol COVID-19 ([facility]) Negative COVID-19 Xlumena See Note Blood Type Antibody Screen 09/18/20 09/19/20 09/19/20 11:46 06:19 06:19 WBC 9.2 RBC 2.83 L Hgb 10.0 L Hct 29.2 L MCV 103.2 H MCH 35.3 H MCHC 34.2 RDW 11.9 Plt Count 148 L MPV 11.1 Immature Gran % (Auto) 0.2 Neut % (Auto) 58.9 Lymph % (Auto) 25.0 [place] % (Auto) 11.6 H Eos % (Auto) 3.9 Baso % (Auto) 0.4 Lymph # (Auto) 2.3 [place] # (Auto) 1.1 Eos # (Auto) 0.4 Baso # (Auto) 0.0 Abs Immat Gran (auto) 0.02 Absolute Neuts (auto) 5.4 Absolute Nucleated RBC 0.000 Nucleated RBC % (auto) 0.0 Smear Tech's Comments PT INR APTT Sodium 141 Potassium 3.8 Chloride 106 Carbon Dioxide 27 Anion Gap 12 BUN 15 Creatinine 0.67 Estim Creat Clear Calc 148.2 Estimated GFR > 60 Random Glucose 122 H Lactic Acid Calcium 8.0 L Magnesium Total Bilirubin Direct Bilirubin AST ALT Alkaline Phosphatase Total Creatine Kinase Troponin I High Sens Total Protein Albumin Lipase Stool Occult Blood Ethyl Alcohol COVID-19 ([facility]) COVID-19 Clin Com Blood Type A Positive Antibody Screen NEGATIVE 09/20/20 09/20/20 09/21/20 06:15 06:15 06:15 WBC 11.8 H 10.3 RBC 2.54 L 2.54 L Hgb 8.8 L 8.9 L Hct 26.4 L 26.2 L MCV 103.9 H 103.1 H MCH 34.6 H 35.0 H MCHC 33.3 34.0 RDW 11.9 12.4 Plt Count 154 L 161 MPV 11.1 10.9 Immature Gran % (Auto) 0.4 0.4 Neut % (Auto) 72.6 52.8 Lymph % (Auto) 15.0 L 27.1 [place] % (Auto) 11.5 H 15.9 H Eos % (Auto) 0.3 3.1 Baso % (Auto) 0.2 0.7 Lymph # (Auto) 1.8 2.8 [place] # (Auto) 1.4 H 1.6 H Eos # (Auto) 0.0 0.3 Baso # (Auto) 0.0 0.1 Abs Immat Gran (auto) 0.05 H 0.04 H Absolute Neuts (auto) 8.6 H 5.4 Absolute Nucleated RBC 0.000 0.000 Nucleated RBC % (auto) 0.0 0.0 Smear Tech's Comments VERIFIED PT INR APTT Sodium 139 Potassium 4.2 Chloride 103 Carbon Dioxide 26 Anion Gap 14 BUN 13 Creatinine 0.70 Estim Creat Clear Calc 141.8 Estimated GFR > 60 Random Glucose 139 H Lactic Acid Calcium 8.0 L Magnesium Total Bilirubin Direct Bilirubin AST ALT Alkaline Phosphatase Total Creatine Kinase Troponin I High Sens Total Protein Albumin Lipase Stool Occult Blood Ethyl Alcohol COVID-19 ([facility]) COVID-19 Clin [facility] Blood Type Antibody Screen 09/21/20 09/22/20 09/22/20 06:15 06:44 06:44 WBC 9.7 RBC 2.77 L Hgb 9.7 L Hct 28.3 L MCV 102.2 H MCH 35.0 H MCHC 34.3 RDW 12.6 Plt Count 185 MPV 11.1 Immature Gran % (Auto) 0.4 Neut % (Auto) 59.2 Lymph % (Auto) 20.2 [place] % (Auto) 17.8 H Eos % (Auto) 2.0 Baso % (Auto) 0.4 Lymph # (Auto) 2.0 [place] # (Auto) 1.7 H Eos # (Auto) 0.2 Baso # (Auto) 0.0 Abs Immat Gran (auto) 0.04 H Absolute Neuts (auto) 5.7 Absolute Nucleated RBC 0.000 Nucleated RBC % (auto) 0.0 Smear Tech's Comments VERIFIED PT INR APTT Sodium 138 138 Potassium 3.9 4.0 Chloride 102 100 Carbon Dioxide 31 H 30 H Anion Gap 9 L 12 BUN 11 8 L Creatinine 0.71 0.69 Estim Creat Clear Calc 139.8 143.9 Estimated GFR > 60 > 60 Random Glucose 124 H 122 H Lactic Acid Calcium 8.1 L 8.5 Magnesium Total Bilirubin Direct Bilirubin AST ALT Alkaline Phosphatase Total Creatine Kinase Troponin I High Sens Total Protein Albumin Lipase Stool Occult Blood Ethyl Alcohol COVID-19 ([facility]) COVID-19 [employer] [facility] Blood Type Antibody Screen 09/22/20 09/23/20 15:15 06:25 WBC RBC Hgb Hct MCV MCH MCHC RDW Plt Count MPV Immature Gran % (Auto) Neut % (Auto) Lymph % (Auto) [place] % (Auto) Eos % (Auto) Baso % (Auto) Lymph # (Auto) [place] # (Auto) Eos # (Auto) Baso # (Auto) Abs Immat Gran (auto) Absolute Neuts (auto) Absolute Nucleated RBC Nucleated RBC % (auto) Smear Tech's Comments PT INR APTT Sodium 138 Potassium 4.1 Chloride 98 Carbon Dioxide 32 H Anion Gap 12 BUN 12 Creatinine 0.71 Estim Creat Clear Calc 139.8 Estimated GFR > 60 Random Glucose 124 H Lactic Acid Calcium 8.9 Magnesium Total Bilirubin Direct Bilirubin AST ALT Alkaline Phosphatase Total Creatine Kinase Troponin I High Sens Total Protein Albumin Lipase Stool Occult Blood Ethyl Alcohol COVID-19 ([facility]) Negative COVID-19 Clin Com See Note Blood Type Antibody Screen Discharge Plan Discharge Patient Disposition: Xfer SNF Referrals: Luna Hidalgo PA-C [Physician [employer]] - (10/01/20 at 11:00 ) Discharge Medications: New sennosides [Senna Lax] 8.6 mg Tablet 17.2 mg PO BEDTIME 30 Days Qty: 60 RF: 0 acetaminophen 325 mg Tablet 325 mg PO Q4H PRN (Reason: Pain, Mild (Pain Scale 1-3)) 30 Days Qty: 240 RF: 0 oxycodone 5 mg Tablet 5 mg PO Q4H PRN (Reason: Pain, Moderate (Pain Scale 4-6) 7 Days Qty: 42 RF: 0 enoxaparin 40 mg/0.4 mL Syringe 40 mg subcut Q24H 30 Days Qty: 12 RF: 0 Continued lisinopril 20 mg Tablet 20 mg PO BID RF: 0 amlodipine 5 mg Tablet 5 mg PO DAILY RF: 0 triamterene-hydrochlorothiazid 37.5-25 mg Tablet 1 tab PO DAILY RF: 0 omega [id number]-fish oil [Fish Oil] 1,000 mg (120 mg-180 mg) Capsule 1 cap PO DAILY RF: 0 Discharge Orders: Discharge Order (Routine); Ordered 09/23/20 Ordered By: Eitan Chavira Diet: regular diet Activity on Discharge: Use cane or walker Stand Alone Forms: Patient Portal Discharge page Activity Restrictions/Additional Instructions: Gait training, strengthening, ADLs Continue Lovenox for dvt ppx x4 weeks Keep dressing clean,dry and intact-no showering or tub baths Follow up with Orthopedics in 2 weeks Care Plan Goals: Restore function right hip Health Concerns: none Plan of Treatment: Physical Therapy Pain management DVT prophylaxis
[2020-09-23 08:42] LABS: SLIDE REVIEW VERIFIED
[2020-09-23] MEDS: Triamterene/HCTZ 37.5/25 TABLET 1 TAB PO (08:48)
[2020-09-23] MEDS: amLODIPine Besylate 5 MG TABLET PO (08:49)
[2020-09-23] MEDS: oxyCODONE HCl Immed Release 5 MG TABLET PO (08:49)
[2020-09-23] MEDS: 0.9 % Sodium Chloride Flush 3 ML SYRINGE IVFLUSH (08:49)
[2020-09-23] MEDS: HYDROmorphone HCl 0.5 MG/0.5 ML SYRINGE 0.25 MG IVPUSH (09:30)
--- NOTE | 2020-09-23 11:01 | HO.PM.IMPN ---
Subjective Subjective Date of Service: 09/23/20 Interval History: R hip pain improved no other complaints Physical Exam Vital Signs: Vital Signs: Last Vital Signs Temp 98.1 F 09/23/20 07:28 Pulse 76 09/23/20 07:28 Resp 17 09/23/20 07:28 BP 140/85 H 09/23/20 07:28 Pulse Ox 93 09/23/20 07:28 Body Mass Index 30.8 Const: General: cooperative; No acute distress Orientation/consciousness: patient oriented x3 Chest: Chest palpation & inspection: normal inspection of the chest Resp: Effort & Inspection: normal respiratory effort Auscultation: clear to auscultation bilaterally Cardio: Rate: regular rate Rhythm: regular rhythm GI: Inspection: Yes normal to inspection Neuro: General: patient oriented x3 Extrem: Other: R hip incision clean/dry/intact Objective Data Labs CBC & Chem 7: 09/23/20 06:25 09/23/20 06:25 Assessment and Plan (1) Intertrochanteric fracture: Status: Acute (2) HTN (hypertension): Problem details: MR. Live is a 65 yo gentleman who presented to the ED with a right intertrochanteric fracture. He was admitted to the orthopedic service and consented to undergo operative fixation of the right hip. Status: Acute (3) Alcoholism: Status: Acute Assessment and Plan: hosp d#5 65yo M admitted to Ortho for intertrochanteric R hip fx medicine consult for mgmt of comorbid conditions # HTN - BP controlled on home meds: amlodipine, lisinopril, triamterene/HCTZ # hx heavy EtOH abuse [though pt minimizes] - no signs of withdrawal - continue vitamin supplementation # POD #4 R hip IMN - VTE ppx with LMWH - analgesia + dispo planning as per Ortho
--- NOTE | 2020-09-24 10:31 | MHC.CM.PN ---
POST DISCHARGE NOTE - MDS AND DC SUMMARY FAXED TO [facility] (PER REQUEST) @ [phone].
== END 2020-09-23 10:58 | disposition skilled nursing facility (03) | DRG 308 ==
LOC: HO.ED 10:54 → HO.EDOVER 12:45 → HO.S3 18:27
PROVIDERS: Orthopaedic Surgery; Physician Assistant; Admitting Provider Orthopaedic Surgery; Emergency Provider Emergency Medicine; PCP Internal Medicine; Visit Provider Orthopaedic Surgery
PROC: 0QS636Z Reposition Right Upper Femur with Intramedullary Internal Fixation Device, Percutaneous Approach (ICD-10-PCS; principal; 2020-09-19 09:30)
DX: S72.141A Displaced intertrochanteric fracture of right femur, initial encounter for closed fracture (principal); F10.20 Alcohol dependence, uncomplicated; W18.30XA Fall on same level, unspecified, initial encounter; Y93.9 Activity, unspecified; I10 Essential (primary) hypertension; Y92.9 Unspecified place or not applicable; Y99.9 Unspecified external cause status; Z20.822 Contact with and (suspected) exposure to COVID-19; Z79.899 Other long term (current) drug therapy
CPT/HCPCS: 36415; 70450; 71250; 72125; 73502; 80048; 80076; 80320; 82272; 82550; 83605; 83690; 83735; 84484; 85025; 85610; 85730; 86850; 86900; 86901; 87635; 93005; 96361; 96375; 97110; 97116; 97163; 97167; 97530; 99285; C1713; C1769; J0690; J1100; J1170; J1650; J1885; J2060; J2270; J2405; J3010; J3411

== ENCOUNTER 2020-10-01 08:41 | Outpatient (REF) | payer SELFPAY | END 2020-10-01 08:42 | disposition home or self-care (01) | LOC: HO.HOSX 08:41 | PROVIDERS: Visit Provider Physician Assistant | DX: Z13.89 Encounter for screening for other disorder (principal) ==

== ENCOUNTER → 2020-10-09 12:42 | Outpatient (BNVA) | payer SELFPAY | PROVIDERS: Visit Provider Physician Assistant | CPT/HCPCS: 99212 ==

== ENCOUNTER → 2020-10-16 12:46 | Outpatient (BNVA) | payer OTHER, SELFPAY | PROVIDERS: Visit Provider Physician Assistant | DX: S72.141D Displaced intertrochanteric fracture of right femur, subsequent encounter for closed fracture with routine healing (principal) | CPT/HCPCS: 99212 ==

== ENCOUNTER 2020-11-06 09:46 | Outpatient (REF) | payer SELFPAY ==
--- NOTE | ~2020-11-06 | XR_ITS ---
EXAMINATION: XR PELVIS XR HIP, RIGHT CLINICAL INFORMATION: Followup intertrochanteric right femur fracture. COMPARISON: Right hip 09/18/2020 TECHNIQUE: AP pelvis and 2 views right hip. FINDINGS: AP PELVIS AND RIGHT HIP: There is an intertrochanteric fracture stabilized with intramedullary femoral seth and a femoral nail in alignment. There are significant hypertrophic bony changes along the medial fracture and along the lesser trochanter. No dislocation seen. The fracture line is still visualized. The left hip joint and rest of the the pelvis is intact. The SI joints are symmetrical and normal. The soft tissues are normal. XR/XR hip RT min 2V IMPRESSION: Satisfactory alignment of right hip intertrochanteric fracture status post ORIF. Hypertrophic bony changes are seen along the lesser trochanter. The fracture line is still visualized. Rest of the pelvis and the left hip appear unremarkable.
--- NOTE | ~2020-11-06 | XR_ITS ---
EXAMINATION: XR PELVIS XR HIP, RIGHT CLINICAL INFORMATION: Followup intertrochanteric right femur fracture. COMPARISON: Right hip 09/18/2020 TECHNIQUE: AP pelvis and 2 views right hip. FINDINGS: AP PELVIS AND RIGHT HIP: There is an intertrochanteric fracture stabilized with intramedullary femoral seth and a femoral nail in alignment. There are significant hypertrophic bony changes along the medial fracture and along the lesser trochanter. No dislocation seen. The fracture line is still visualized. The left hip joint and rest of the the pelvis is intact. The SI joints are symmetrical and normal. The soft tissues are normal. XR/XR pelvis 1-2V IMPRESSION: Satisfactory alignment of right hip intertrochanteric fracture status post ORIF. Hypertrophic bony changes are seen along the lesser trochanter. The fracture line is still visualized. Rest of the pelvis and the left hip appear unremarkable.
== END 2020-11-06 09:47 | disposition home or self-care (01) ==
LOC: HO.HOSX 09:46
PROVIDERS: Visit Provider Physician Assistant
DX: S72.141D Displaced intertrochanteric fracture of right femur, subsequent encounter for closed fracture with routine healing (principal)
CPT/HCPCS: 72170; 73502; 99212

== ENCOUNTER → 2020-11-27 10:10 | Outpatient (BNVA) | payer MEDICAID, SELFPAY | PROVIDERS: PCP Internal Medicine; Visit Provider Physician Assistant | DX: S72.141D Displaced intertrochanteric fracture of right femur, subsequent encounter for closed fracture with routine healing (principal) | CPT/HCPCS: 99212 ==

== ENCOUNTER 2020-12-07 08:47 | Outpatient (REF) | payer MEDICAID, SELFPAY ==
[2020-12-07 10:06] LABS: MANUAL DIFF FLAG NO
[2020-12-07 10:22] LABS: Basophils Absolute Auto 0.1 X10*3/uL (0.0-0.2); Basophils Percent Auto 0.8 % (0-2); Eosinophils Absolute Auto 0.4 X10*3/uL (0.0-0.4); Eosinophils Percent Auto 4.6 % (0-4); Hematocrit 46.3 % (42-52); Imm Gran Abs Auto 0.01 X10*3/uL (0.00-0.03); Imm Gran Pct Auto 0.1 % (0.0-0.4); Lymphocytes Percent Auto 45.9 % (20-40); Mean Corpuscular HGB Conc 34.1 g/dl (31.0-36.0); Mean Corpuscular Hemoglobin 32.8 pg (27.0-33.0); Mean Corpuscular Volume 96.3 fL (80-98); Mean Platelet Volume 9.9 fL (9.4-12.4); Monocytes Absolute Auto 0.9 X10*3/uL (0.1-1.2); Monocytes Percent Auto 10.1 % (2-11); Neutrophils Absolute Auto 3.4 X10*3/uL (2.0-8.3); Neutrophils Percent Auto 38.5 % (45-73); Platelet Count 222 X10*3/uL (160-400); Red Blood Count 4.81 X10*6/uL (4.60-5.80); Red Cell Distribution Width 15.7 % (11.0-16.0); White Blood Count 8.8 X10*3/uL (4.8-10.8)
[2020-12-07 10:38] LABS: Anion Gap 15 (12-20); Blood Urea Nitrogen 13 mg/dL (9-16); Calcium 9.1 mg/dL (8.4-10.2); Carbon Dioxide 27 mmol/L (22-29); Chloride 103 mmol/L (96-108); Estimated Glomerular Filt Rate > 60; Glucose Fasting 116 mg/dL (60-99); Iron 115 mcg/dL (45-160); Percent Iron Saturation 39 % (15-50); Potassium 4.7 mmol/L (3.3-5.1); Sodium 140 mmol/L (135-145); Total Iron Binding Capacity 298 mcg/dL (228-428); Unsaturated Iron Binding 183 ug/dL
[2020-12-07 10:41] LABS: Estimated Average Glucose 97 mg/dL
[2020-12-07 10:57] LABS: Hemoglobin 15.8 g/dl (14.0-18.0)
== END 2020-12-07 08:48 | disposition home or self-care (01) ==
LOC: HO.10HDL 08:47
PROVIDERS: Visit Provider Internal Medicine
DX: I10 Essential (primary) hypertension (principal); D64.9 Anemia, unspecified; R73.03 Prediabetes
CPT/HCPCS: 36415; 80048; 83036; 83540; 85025

== ENCOUNTER 2021-05-13 08:13 | Outpatient (REF) | payer MEDICAID, SELFPAY ==
[2021-05-13 10:08] LABS: MANUAL DIFF FLAG NO
[2021-05-13 10:12] LABS: Basophils Absolute Auto 0.1 X10*3/uL (0.0-0.2); Basophils Percent Auto 0.8 % (0-2); Eosinophils Absolute Auto 0.3 X10*3/uL (0.0-0.4); Eosinophils Percent Auto 3.8 % (0-4); Hematocrit 43.3 % (42-52); Hemoglobin 14.7 g/dl (14.0-18.0); Imm Gran Abs Auto 0.02 X10*3/uL (0.00-0.03); Imm Gran Pct Auto 0.3 % (0.0-0.4); Lymphocytes Absolute Auto 3.1 X10*3/uL (1.2-4.9); Lymphocytes Percent Auto 38.6 % (20-40); Mean Corpuscular HGB Conc 33.9 g/dl (31.0-36.0); Mean Corpuscular Hemoglobin 33.6 pg (27.0-33.0); Mean Corpuscular Volume 99.1 fL (80-98); Mean Platelet Volume 10.5 fL (9.4-12.4); Monocytes Percent Auto 12.5 % (2-11); Neutrophils Absolute Auto 3.5 X10*3/uL (2.0-8.3); Platelet Count 200 X10*3/uL (160-400); Red Blood Count 4.37 X10*6/uL (4.60-5.80); Red Cell Distribution Width 12.8 % (11.0-16.0); White Blood Count 7.9 X10*3/uL (4.8-10.8)
[2021-05-13 10:25] LABS: Estimated Average Glucose 114 mg/dL; Hemoglobin A1c % 5.6 %
[2021-05-13 10:49] LABS: Alanine Aminotransferase 51 U/L (0-40); Albumin Level 3.8 g/dL (3.5-5.0); Alkaline Phosphatase 85 U/L (39-117); Anion Gap 14 (12-20); Aspartate Amino Transferase 61 U/L (5-37); Bilirubin Total 1.1 mg/dL (0.0-1.0); Blood Urea Nitrogen 10 mg/dL (9-16); Calcium 9.1 mg/dL (8.4-10.2); Carbon Dioxide 28 mmol/L (22-29); Chloride 102 mmol/L (96-108); Estimated Glomerular Filt Rate > 60; Glucose Fasting 122 mg/dL (60-99); Potassium 3.7 mmol/L (3.3-5.1); Sodium 140 mmol/L (135-145); Total Protein 6.6 g/dL (6.5-8.0)
== END 2021-05-13 08:14 | disposition home or self-care (01) ==
LOC: HO.10HDL 08:13
PROVIDERS: Visit Provider Internal Medicine
DX: I10 Essential (primary) hypertension (principal); R73.03 Prediabetes
CPT/HCPCS: 36415; 80053; 83036; 85025

== ENCOUNTER 2021-05-21 14:30 | Emergency (ER) | payer MEDICAID, SELFPAY ==
--- NOTE | ~2021-05-21 | XR_ITS ---
EXAMINATION: XR HIP, RIGHT CLINICAL INFORMATION: Pain without trauma COMPARISON: 11/06/2020 TECHNIQUE: Two views of the right hip. Single view of the pelvis FINDINGS: The single pelvic image is comparable to previous. No acute finding. Hardware in the right hip. The left femoral head contour is smooth. Degeneration the lower lumbar sacral spine. 2. Detail views of the right hip demonstrates seth and screws bridging fracture. There is sclerosis in the region consistent with healing. No evidence for hardware failure. Vascular calcifications are noted. XR/XR hip RT w PEL1V IMPRESSION: Hardware associated with the right hip and likely healing intertrochanteric fracture when compared to films from 03/18/2021. There is no acute finding. No evidence for hardware failure.
[2021-05-21 14:43] VITALS: BP 147/88; PULSE 93; RESP 18; TEMP 36.6; O2SAT 95; BMI 33.0
--- NOTE | 2021-05-21 16:47 | ED.GENADULT ---
HPI - General Adult General Chief complaint: General Medical Stated complaint: groin pain Time Seen by Provider: 05/21/21 16:47 Source: patient Mode of arrival: ambulatory Limitations: no limitations History of Present Illness HPI narrative: Patient is status post right hip IMN in 09/10 was doing fine for last 5 days noticed pain in the right hip got worse today patient standing no history of trauma no injury pain gets worse when he stands up otherwise he feels okay Related Data Home Medications Medication Instructions Recorded Confirmed amlodipine 5 mg tablet 5 mg PO DAILY 09/18/20 09/18/20 lisinopril 20 mg tablet 20 mg PO BID 09/18/20 09/18/20 omega 8-rwc-fms-fish oil 1,000 mg 1 cap PO DAILY 09/18/20 09/18/20 (120 mg-180 mg) capsule (Fish Oil) triamterene 37.5 1 tab PO DAILY 09/18/20 09/18/20 mg-hydrochlorothiazide 25 mg tablet Previous Rx's Medication Instructions Recorded acetaminophen 325 mg tablet 325 mg PO Q4H PRN 30 Days #240 tab 09/22/20 enoxaparin 40 mg/0.4 mL 40 mg SUBCUT Q24H 30 Days #12 ml 09/22/20 subcutaneous syringe sennosides 8.6 mg tablet (Senna 17.2 mg PO BEDTIME 30 Days #60 tab 09/22/20 Lax) sulfamethoxazole 800 1 tab PO BID 10 Days #20 tab 10/09/20 mg-trimethoprim 160 mg tablet (Bactrim DS) oxycodone 5 mg tablet 5 mg PO ONCE PRN 7 Days #7 tab 11/10/20 oxycodone 5 mg tablet 5 mg PO Q6H PRN #20 tab 05/21/21 Allergies Allergy/AdvReac Type Severity Reaction Status Date / Time No Known Allergies Allergy Verified 10/16/20 12:50 [No Known Allergies*] Review of Systems Review of Systems: Yes all other systems are reviewed and are negative PMFSH Past Medical History Medical History Alcoholism Anemia Aspiration pneumonia Falls HTN (hypertension) Social History Social History Household Members: Spouse Housing: House Do you presently have visiting nurse or other home services: No Alcohol intake: current Advance Directives: No Advance Directives Information Provided: No service: No Current occupational status: employed 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 Oriented X3. No acute distress. Neck: Normal inspection. Neck supple. CVS: Normal heart rate and rhythm. Pulses normal. Respiratory: No respiratory distress. Abdomen: Soft and nontender. Bowel sounds are present, no mass palpable, Skin: Skin warm and dry. Normal skin color. Normal skin turgor. Extremities: No lower extremity edema. No calf tenderness no tenderness on palpation of right groin, no deformity no lump palpable no hernia Neuro: Oriented X 3. Medical Decision Making MDM Narrative Medical decision making narrative: Patient with atraumatic right groin pain status post right hip surgery in 09/10 x-ray negative for any hardware displacement. Patient does have pain only on standing not on palpation, discussed Dr. Walls patient's orthopedic surgeon advised to use his crutches or cane advised to follow up as outpatient for further evaluation Discharge Plan Discharge Clinical Impression: Groin strain Qualifiers: Encounter type: initial encounter Laterality: right Qualified Code(s): S76.211A - Strain of adductor muscle, fascia and tendon of right thigh, initial encounter Patient Disposition: Home, Self-Care Instructions: Groin Strain (ED) Additional Instructions: Take pain medication as advised Use crutches /cane for ambulation if needed See Dr. Walls next week Prescriptions: New oxycodone 5 mg tablet 5 mg PO Q6H PRN (Reason: Pain, Severe) Qty: 20 RF: 0 No Action oxycodone 5 mg tablet 5 mg PO ONCE PRN (Reason: Pain, Moderate (Pain Scale 4-6) 7 Days Qty: 7 RF: 0 lisinopril 20 mg Tablet 20 mg PO BID RF: 0 amlodipine 5 mg Tablet 5 mg PO DAILY RF: 0 triamterene-hydrochlorothiazid 37.5-25 mg Tablet 1 tab PO DAILY RF: 0 omega 5-npd-zal-fish oil [Fish Oil] 1,000 mg (120 mg-180 mg) Capsule 1 cap PO DAILY RF: 0 sennosides [Senna Lax] 8.6 mg Tablet 17.2 mg PO BEDTIME 30 Days Qty: 60 RF: 0 acetaminophen 325 mg Tablet 325 mg PO Q4H PRN (Reason: Pain, Mild (Pain Scale 1-3)) 30 Days Qty: 240 RF: 0 enoxaparin 40 mg/0.4 mL Syringe 40 mg subcut Q24H 30 Days Qty: 12 RF: 0 sulfamethoxazole-trimethoprim [Bactrim DS] 800-160 mg tablet 1 tab PO BID 10 Days Qty: 20 RF: 0 Discharge Date/Time: 05/21/21 19:44
[2021-05-21] MEDS: oxyCODONE HCl Immed Release 5 MG TABLET 10 MG PO (19:20)
== END 2021-05-21 19:44 | disposition home or self-care (01) ==
PROVIDERS: Emergency Provider Internal Medicine; PCP Internal Medicine
DX: S76.211A Strain of adductor muscle, fascia and tendon of right thigh, initial encounter (principal); R10.30 Lower abdominal pain, unspecified; M25.551 Pain in right hip; X58.XXXA Exposure to other specified factors, initial encounter; Y93.9 Activity, unspecified; Y92.9 Unspecified place or not applicable; Y99.9 Unspecified external cause status; Z79.899 Other long term (current) drug therapy
CPT/HCPCS: 73502; 99283

== ENCOUNTER 2021-06-07 09:00 | Outpatient (REF) | payer MEDICAID, SELFPAY ==
--- NOTE | ~2021-06-07 | XR_ITS ---
EXAMINATION: CR X-RAY PELVIS AND RIGHT HIP CLINICAL INFORMATION: Right hip and pelvic pain. COMPARISON: 11/06/2020 right hip and pelvis radiographs. TECHNIQUE: A single view of the pelvis and 2 views of the right hip and femur were obtained. FINDINGS: The patient is status post right hip/femoral ORIF showing good anatomic alignment and no evidence for hardware malfunction. There is no acute fracture or dislocation. Mild heterotopic bone formation is again seen. Hypertrophic changes associated with the lesser trochanter are unchanged. There are mild right hip degenerative joint changes. The bony pelvis is intact. The left hip joint shows mild degenerative changes. Moderate atherosclerosis is noted. XR/XR hip RT min 2V IMPRESSION: 1. No hardware abnormality. No acute fracture. No significant change. 2. No acute pelvic abnormality. Mild bilateral hip osteoarthritis.
--- NOTE | ~2021-06-07 | XR_ITS ---
EXAMINATION: CR X-RAY PELVIS AND RIGHT HIP CLINICAL INFORMATION: Right hip and pelvic pain. COMPARISON: 11/06/2020 right hip and pelvis radiographs. TECHNIQUE: A single view of the pelvis and 2 views of the right hip and femur were obtained. FINDINGS: The patient is status post right hip/femoral ORIF showing good anatomic alignment and no evidence for hardware malfunction. There is no acute fracture or dislocation. Mild heterotopic bone formation is again seen. Hypertrophic changes associated with the lesser trochanter are unchanged. There are mild right hip degenerative joint changes. The bony pelvis is intact. The left hip joint shows mild degenerative changes. Moderate atherosclerosis is noted. XR/XR pelvis 1-2V IMPRESSION: 1. No hardware abnormality. No acute fracture. No significant change. 2. No acute pelvic abnormality. Mild bilateral hip osteoarthritis.
== END 2021-06-07 09:01 | disposition home or self-care (01) ==
LOC: HO.HOSX 09:00
PROVIDERS: Visit Provider Physician Assistant
DX: S72.141A Displaced intertrochanteric fracture of right femur, initial encounter for closed fracture (principal)
CPT/HCPCS: 72170; 73502; 99212

== ENCOUNTER 2022-05-06 10:13 | Outpatient (REF) | payer BC, SELFPAY ==
[2022-05-06 10:37] LABS: MANUAL DIFF FLAG NO
[2022-05-06 10:38] LABS: Basophils Absolute Auto 0.1 X10*3/uL (0.0-0.2); Basophils Percent Auto 0.8 % (0-2); Eosinophils Absolute Auto 0.1 X10*3/uL (0.0-0.4); Eosinophils Percent Auto 1.8 % (0-4); Hematocrit 43.3 % (42.0-52.0); Hemoglobin 14.8 g/dl (14.0-18.0); Imm Gran Abs Auto 0.01 X10*3/uL (0.00-0.03); Imm Gran Pct Auto 0.1 % (0.0-0.4); Lymphocytes Absolute Auto 2.4 X10*3/uL (1.2-4.9); Lymphocytes Percent Auto 33.3 % (20-40); Mean Corpuscular HGB Conc 34.2 g/dl (31.0-36.0); Mean Corpuscular Hemoglobin 34.3 pg (27.0-33.0); Mean Corpuscular Volume 100.2 fL (80.0-98.0); Mean Platelet Volume 10.5 fL (9.4-12.4); Monocytes Absolute Auto 0.9 X10*3/uL (0.1-1.2); Monocytes Percent Auto 12.2 % (2-11); Neutrophils Absolute Auto 3.8 x10*3/uL (2.0-8.3); Neutrophils Percent Auto 51.8 % (45-73); Platelet Count 181 X10*3/uL (160-400); Red Blood Count 4.32 X10*6/uL (4.60-5.80); Red Cell Distribution Width 11.7 % (11.0-16.0); White Blood Count 7.3 X10*3/uL (4.8-10.8)
[2022-05-06 11:18] LABS: Estimated Average Glucose 114 mg/dL; Hemoglobin A1c % 5.6 %
[2022-05-06 12:00] LABS: Alanine Aminotransferase 164 U/L (0-40); Albumin Level 4.1 g/dL (3.5-5.0); Alkaline Phosphatase 62 U/L (39-117); Anion Gap 14 (12-20); Aspartate Amino Transferase 152 U/L (5-37); Blood Urea Nitrogen 11 mg/dL (9-16); Calcium 9.4 mg/dL (8.4-10.2); Carbon Dioxide 28 mmol/L (22-29); Chloride 98 mmol/L (96-108); Cholesterol 164 mg/dL; Estimated Glomerular Filt Rate > 60; Glucose Fasting 105 mg/dL (60-99); Potassium 4.3 mmol/L (3.3-5.1); Sodium 136 mmol/L (135-145)
== END 2022-05-06 10:14 | disposition home or self-care (01) ==
LOC: HO.10HDL 10:13
PROVIDERS: Visit Provider Internal Medicine
DX: I10 Essential (primary) hypertension (principal); R79.89 Other specified abnormal findings of blood chemistry; R73.03 Prediabetes; Z12.5 Encounter for screening for malignant neoplasm of prostate
CPT/HCPCS: 36415; 80053; 82465; 83036; 84153; 85025

== ENCOUNTER 2022-06-23 08:55 | Outpatient (REF) | payer BC, SELFPAY ==
--- NOTE | ~2022-06-23 | XR_ITS ---
EXAMINATION: XR HIP, RIGHT XR FEMUR, RIGHT CLINICAL INFORMATION: Pain. COMPARISON: Radiographs dated 06/07/2021. TECHNIQUE: AP and frog-leg lateral views of the right hip. AP and lateral views of the right femur were obtained. FINDINGS: There is bony demineralization. There is moderate narrowing of the superolateral aspect of the right acetabular joint space. There is mild subchondral sclerosis and peripheral osteophyte formation of the right acetabular roof. No acute fracture or dislocation is seen. There is intact orthopedic hardware applied to the right femur, without hardware failure loosening noted. A healed intertrochanteric fracture is noted, with bony remodeling. No right knee joint effusion is seen. There are femoral and popliteal atherosclerotic calcifications. XR/XR hip RT 1V IMPRESSION: 1. There is mild to moderate osteoarthritic change of the right hip. 2. There is a healed intertrochanteric fracture of the proximal right femur. An intact intramedullary seth and compression screw are applied to the right femur.
--- NOTE | ~2022-06-23 | XR_ITS ---
EXAMINATION: XR HIP, RIGHT XR FEMUR, RIGHT CLINICAL INFORMATION: Pain. COMPARISON: Radiographs dated 06/07/2021. TECHNIQUE: AP and frog-leg lateral views of the right hip. AP and lateral views of the right femur were obtained. FINDINGS: There is bony demineralization. There is moderate narrowing of the superolateral aspect of the right acetabular joint space. There is mild subchondral sclerosis and peripheral osteophyte formation of the right acetabular roof. No acute fracture or dislocation is seen. There is intact orthopedic hardware applied to the right femur, without hardware failure loosening noted. A healed intertrochanteric fracture is noted, with bony remodeling. No right knee joint effusion is seen. There are femoral and popliteal atherosclerotic calcifications. XR/XR femur RT 2V IMPRESSION: 1. There is mild to moderate osteoarthritic change of the right hip. 2. There is a healed intertrochanteric fracture of the proximal right femur. An intact intramedullary seth and compression screw are applied to the right femur.
== END 2022-06-23 08:56 | disposition home or self-care (01) ==
LOC: HO.HOSX 08:55
PROVIDERS: Visit Provider Orthopaedic Surgery
DX: M71.551 Other bursitis, not elsewhere classified, right hip (principal); Z87.81 Personal history of (healed) traumatic fracture
CPT/HCPCS: 20610; 73501; 73552; J1100

== ENCOUNTER 2022-12-01 08:55 | Emergency (ER) | payer MEDICARE, MEDICAID, SELFPAY ==
--- NOTE | ~2022-12-01 | XR_ITS ---
EXAMINATION: Right knee, right foot and right ankle. CLINICAL INDICATION: Fall. COMPARISON: Right femur 06/23/2022: 4 views right knee, 3 views right foot and 3 views right ankle. FINDINGS: Right knee: There is lateral tibial plateau vertical fracture of unknown age. The medial tibial plateau is normal. Mild to moderate suprapatellar joint effusion seen. The patella is unremarkable. There is a distal femoral intramedullary seth for right hip fracture. There is mild osteopenia. Right foot: There is no visible acute fracture, dislocation or subluxation seen. There is mild reduction in the joint space. Mild lateral fifth MTP joint soft tissue swelling is noted.. There is a moderate size calcaneal heal and retrocalcaneal enthesophytes. Right ankle: The ankle mortise and subtalar joints are normal. No visible acute fracture, dislocation or subluxation seen. The soft tissues are normal. XR/XR ankle RT min 3V IMPRESSION: 1. Vertical fracture lateral tibial plateau of unknown age. There is mild to moderate suprapatellar joint effusion. 2. There is no visible acute fracture or dislocation right foot or right ankle. There is mild lateral fifth MTP joint soft tissue swelling. 3. There is a moderate size calcaneal heal and retrocalcaneal enthesophytes. No ankle fractures seen. 4. Mild soft tissue swelling lateral fifth MTP joint. No bony or joint abnormality seen involving the right foot.
--- NOTE | ~2022-12-01 | CT_ITS ---
EXAMINATION: CT KNEE WITHOUT CONTRAST, RIGHT CLINICAL INFORMATION: Fracture. Pain. COMPARISON: Right knee radiographs done earlier the same day. TECHNIQUE: Contiguous axial CT images of the right knee were obtained without contrast. Sagittal and coronal reformats were provided and reviewed. This CT examination was performed using dose optimization techniques as appropriate, variously including the following: *Automated exposure control *Adjustment of mA and/or kV according to patient size (this includes techniques or standardized protocols for targeted exams where dose is matched to indication/reason for exam; i.e. extremities or head) *Use of iterative reconstruction technique DLP: 165 mGy-cm FINDINGS: Comminuted and displaced fracture through the posterolateral aspect of the lateral tibial plateau. Overall, the fracture measures up to 3.3 x 2.8 cm (AP x ML). There is up to 0.6 cm of depression/cortical step-off along the articular surface. There are extensions of the fracture line to the lateral cortex and contacting the proximal tibiofibular joint as well as to the posterior cortex. The largest fracture fragment measures up to 5.2 cm in greatest dimension. Multiple small fracture fragments are seen along the periphery and posterior aspect of the fracture. No additional tibial plateau fracture. No fibular head fracture. Findings are consistent with a Schatzker type III fracture. Mild osteopenia. Small tricompartmental marginal osteophytes. No concerning lytic or blastic osseous lesion. Partially visualized distal femoral ORIF. Mydqvlhq-vr-fkxpe lipohemarthrosis. Atherosclerotic calcifications. No abnormal soft tissue mass or fluid collection. CT/CT knee RT wo IV con IMPRESSION: 1. Comminuted and displaced fracture through the posterolateral aspect of the lateral tibial plateau with up to 0.6 cm of depression/cortical step-off along the articular surface. Multiple small fracture fragments along the periphery and posterior aspect of the fracture. Findings are consistent with a Schatzker type III fracture. 2. Hoxlprki-kz-xakzs lipohemarthrosis. 3. Mild osteopenia. 4. Mild tricompartmental osteoarthritis.
--- NOTE | ~2022-12-01 | XR_ITS ---
EXAMINATION: XR HIP, RIGHT CLINICAL INFORMATION: Fall, pain. COMPARISON: Right hip 06/23/2022 . TECHNIQUE: Two views of the right hip. FINDINGS: There is intramedullary medullary femoral seth and a compression screw stabilizing intertrochanteric fracture. There is hypertrophic callus formation along the right hip. There is no dislocation. No recurrent fracture identified. There is no listhesis seen along the intramedullary femoral seth. XR/XR hip RT w PEL1V IMPRESSION: Intramedullary femoral seth and compression screw stabilizing intertrochanteric fracture. There is hypertrophic callus formation along the right hip. No recurrent fracture seen.
--- NOTE | ~2022-12-01 | XR_ITS ---
EXAMINATION: Right knee, right foot and right ankle. CLINICAL INDICATION: Fall. COMPARISON: Right femur 06/23/2022: 4 views right knee, 3 views right foot and 3 views right ankle. FINDINGS: Right knee: There is lateral tibial plateau vertical fracture of unknown age. The medial tibial plateau is normal. Mild to moderate suprapatellar joint effusion seen. The patella is unremarkable. There is a distal femoral intramedullary seth for right hip fracture. There is mild osteopenia. Right foot: There is no visible acute fracture, dislocation or subluxation seen. There is mild reduction in the joint space. Mild lateral fifth MTP joint soft tissue swelling is noted.. There is a moderate size calcaneal heal and retrocalcaneal enthesophytes. Right ankle: The ankle mortise and subtalar joints are normal. No visible acute fracture, dislocation or subluxation seen. The soft tissues are normal. XR/XR knee RT 2V IMPRESSION: 1. Vertical fracture lateral tibial plateau of unknown age. There is mild to moderate suprapatellar joint effusion. 2. There is no visible acute fracture or dislocation right foot or right ankle. There is mild lateral fifth MTP joint soft tissue swelling. 3. There is a moderate size calcaneal heal and retrocalcaneal enthesophytes. No ankle fractures seen. 4. Mild soft tissue swelling lateral fifth MTP joint. No bony or joint abnormality seen involving the right foot.
--- NOTE | ~2022-12-01 | XR_ITS ---
EXAMINATION: Right knee, right foot and right ankle. CLINICAL INDICATION: Fall. COMPARISON: Right femur 06/23/2022: 4 views right knee, 3 views right foot and 3 views right ankle. FINDINGS: Right knee: There is lateral tibial plateau vertical fracture of unknown age. The medial tibial plateau is normal. Mild to moderate suprapatellar joint effusion seen. The patella is unremarkable. There is a distal femoral intramedullary seth for right hip fracture. There is mild osteopenia. Right foot: There is no visible acute fracture, dislocation or subluxation seen. There is mild reduction in the joint space. Mild lateral fifth MTP joint soft tissue swelling is noted.. There is a moderate size calcaneal heal and retrocalcaneal enthesophytes. Right ankle: The ankle mortise and subtalar joints are normal. No visible acute fracture, dislocation or subluxation seen. The soft tissues are normal. XR/XR foot RT min 3V IMPRESSION: 1. Vertical fracture lateral tibial plateau of unknown age. There is mild to moderate suprapatellar joint effusion. 2. There is no visible acute fracture or dislocation right foot or right ankle. There is mild lateral fifth MTP joint soft tissue swelling. 3. There is a moderate size calcaneal heal and retrocalcaneal enthesophytes. No ankle fractures seen. 4. Mild soft tissue swelling lateral fifth MTP joint. No bony or joint abnormality seen involving the right foot.
[2022-12-01 09:02] VITALS: BP 146/86; PULSE 83; RESP 18; TEMP 36.6; O2SAT 95; BMI 32.7
--- NOTE | 2022-12-01 09:15 | ED_ITS ---
HPI - General Adult General Chief complaint: Extremity Injury, Lower Stated complaint: knee injury Time Seen by Provider: 12/01/22 09:13 Source: patient Mode of arrival: wheelchair Limitations: no limitations History of Present Illness HPI narrative: Patient is a 67 year old assigned male at with a history of right hip fracture presenting to the emergency department today with right knee pain s/p mechanical fall from 4-4.5 ft scaffolding yesterday. Patient states that he is unable to bare weight on right knee due to stabbing pain upon standing, increased swelling to the area, and took Tylenol last night with minimal relief. Denies head strike, LOC, confusion, dizziness, lightheadedness, abdominal pain, nausea, vomiting, fever, chills, blurry vision, double vision, loss of vision, chest pain, difficulty breathing, shortness of breath, back pain, night sweats, pain with urination, increased urinary frequency, increased urinary urgency, blood in his urine or stool, syncope or a near syncopal episode, bowel incontinence, bladder incontinence, bowel retention, bladder retention, or any other complaints at this time. Onset (ago): day(s) (1) Location: right and lower extremity Radiation: non-radiation Quality: stabbing Pain Consistency: intermittent Relieving factors: immobilization Exacerbating factors: movement Associated symptoms: denies other symptoms Related Data Home Medications Medication Instructions Recorded Confirmed amlodipine 5 mg tablet 5 mg PO DAILY 09/18/20 09/18/20 lisinopril 20 mg tablet 20 mg PO BID 09/18/20 09/18/20 omega 7-cho-roz-fish oil 1,000 mg 1 cap PO DAILY 09/18/20 09/18/20 (120 mg-180 mg) capsule (Fish Oil) triamterene 37.5 1 tab PO DAILY 09/18/20 09/18/20 mg-hydrochlorothiazide 25 mg tablet hydrochlorothiazide 12.5 mg tablet 12.5 mg PO DAILY 06/23/22 Previous Rx's Medication Instructions Recorded acetaminophen 325 mg tablet 325 mg PO Q4H PRN Pain, Mild (Pain 09/22/20 Scale 1-3) 30 days #240 tabs sennosides 8.6 mg tablet (Senna 17.2 mg PO BEDTIME 30 days #60 tabs 09/22/20 Lax) sulfamethoxazole 800 1 tab PO BID 10 days #20 tabs 02/19/21 mg-trimethoprim 160 mg tablet (Bactrim DS) oxycodone 5 mg tablet 5 mg PO ONCE PRN Pain, Moderate 11/10/20 (Pain Scale 4-6 7 days #7 tabs oxycodone 5 mg tablet 5 mg PO Q6H PRN Pain, Severe #20 05/21/21 tabs celecoxib 200 mg capsule (Celebrex) 200 mg PO BID 30 days #60 caps 06/23/22 Allergies Allergy/AdvReac Type Severity Reaction Status Date / Time No Known Allergies Allergy Verified 12/01/22 09:05 [No Known Allergies*] Review of Systems Constitutional: Constitutional: Reports no additional constitutional complaints, Denies chills, Denies fever(s) and Denies night sweats Eyes: Eyes: Reports no additional eye complaints, Denies blurry vision, Denies change in vision, Denies diplopia, Denies eye discharge, Denies loss of vision and Denies eye pain ENT: Denies dizziness Cardiovascular: Cardiovascular: Reports no additional cardiovascular complaints, Denies chest pain, Denies lightheadedness, Denies Loss of Consciousness and Denies dyspnea Respiratory: Respiratory: Reports no additional respiratory complaints and Denies dyspnea Gastrointestinal: Gastrointestinal: Reports no additional gastrointestinal complaints, Denies abdominal pain, Denies melena, Denies hematochezia, Denies change in bowel habits and Denies change in stool character Genitourinary: Genitourinary: Reports no additional male genitourinary complaints, Denies hematuria, Denies oliguria, Denies difficulty urinating, Denies dysuria, Denies urinary frequency, Denies urinary hesitancy, Denies urinary incontinence and Denies urinary urgency Musculoskeletal: Musculoskeletal: Reports no additional musculoskeletal complaints, Denies numbness and Denies tingling Comments: right hip pain, right knee pain Neurologic: Denies dizziness, Denies loss of vision, Denies numbness and Denies tingling Psychiatric: Psychiatric: Reports no additional psychiatric complaints Endocrine: Endocrine: Reports no additional endocrine complaints Hematologic/Lymphatic: Hematologic/Lymphatic: Reports no additional hematologic/lymphatic complaints Allergic/Immunologic: Allergic/Immunologic: Reports no additional allergic/immunologic complaints PMFSH Past Medical History Attestation statement: The following information was validated with the patient. 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 Physical Exam ED Vital Signs: Vital Signs - 24 hr 12/01/22 09:02 Temperature 97.8 F Pulse Rate 83 Respiratory Rate 18 Blood Pressure 146/86 H Pulse Oximetry 95 Oxygen Delivery Method Room Air BMI result Body Mass Index 32.7 Const General: cooperative, no acute distress, alert and awake Nutritional Appearance: well nourished Orientation/consciousness: patient oriented x3 Limitations: no limitations HENMT Head: Yes normal to inspection and Yes atraumatic Ears: hearing grossly normal bilaterally and external ears normal General nose exam: Normal external nose present, no nasal discharge noted and no epistaxis Face and sinus: Yes normal facial exam, No abrasion and No laceration Mouth: Normal oral and palatal mucosa present, no drooling and no muffled voice Eyes General: appearance normal, both eyes and all related structures Periorbital: periorbital findings normal Eyelids: Yes eyelids normal Conjunctivae: conjunctivae normal Pupils: Equal, round and reactive pupils present EOM: EOMs intact bilaterally Neck Neck: Yes normal visual inspection, Yes full ROM and Yes no lymphadenopathy Chest Chest palpation & inspection: normal inspection of the chest Resp Effort & Inspection: normal respiratory effort and able to speak in complete sentences Auscultation: clear to auscultation bilaterally Cardio Rate: regular rate Rhythm: regular rhythm GI Inspection: Yes normal to inspection Palpation (GI): Soft to palpation, not firm, nontender and no guarding Neuro General: patient oriented x3 and moves all extremities Cranial nerves: Yes Equal, round and reactive pupils present Cognition (Neuro): normal cognition Motor exam (neuro): 5/5 motor strength present throughout Sensory Exam: Normal double simultaneous stimulation for sensation Coordination: [id number]-[id number]-[id number] test normal Extrem Other: decreased ROM of the right lower extremity at the knee secondary to pain General: Yes normal to inspection and Yes capillary refill normal Psych Appearance: grossly normal Mental Status: mental status grossly normal Affect: normal affect Attitude: cooperative Thought process: Normal thought process present Thought content: Normal thought content present Insight: Good insight present (Psych) Procedures Orthopedic Splinting/Casting Injury #1: Side: right Lower Extremity Injury Location: knee Lower Extremity Immobilizer: knee immobilizer Other Orthopedic Equipment: crutches Medical Decision Making Medical Decision Making [facility] Narrative: Patient is a 67 year old assigned male at presenting to the emergency department today with right knee pain. Patient's physical exam showed limited ROM of the right knee secondary to pain but was otherwise unremarkable. Patient's right foot and ankle x-rays showed no acute process. Patient's right knee x-ray showed a lateral tibia fracture. Patient's right hip x-ray showed no recurrent fracture. I spoke to the orthopedic provider policyholder information clerk who recommended immobilizing the knee and having the patients use crutches then follow up outpatient. fisheries specialist recommended obtaining a CT of the knee prior to discharge however, it would not change treatment plan. Patient's right knee CT confirmed a tibial fracture. I explained my physical exam findings as well as all test results to the patient. I answered all questions asked by the patient. Patient received a knee immobilizer and crutches with crutch instructions, without incident. Patient's PMS was in tact prior to and after immobilizer placement. I stressed the importance of the patient taking his medication as prescribed. I stressed the importance of the patient following up with his primary care provider and an orthopedic provider. I stressed the importance of the patient returning to the emergency department immediately if his symptoms were to worsen or if he were to develop any dizziness, shortness of breath, difficulty breathing, chest pain, blurry vision, loss of vision, nausea, vomiting, abdominal pain, fever, chills, back pain, or any other complaints. Patient verbalized agreement and understanding with this treatment plan and discharge. Differential Diagnosis Differential Diagnoses: The differential diagnosis associated with the presentation includes tibia fracture Consult Healthcare Provider Management of the patient was discussed with: Copy Coordinator (spoke to the orthopedic provider policyholder information clerk, per MDM section of this chart. ) Independent Interpretation I performed an independent interpretation of an: Plain X-Ray and CT Scan Interpretation: My interpretation is in agreement with the radiologist's impression of these imaging studies. EXAMINATION: Right knee, right foot and right ankle. CLINICAL INDICATION: Fall. COMPARISON: Right femur 06/23/2022: 4 views right knee, 3 views right foot and 3 views right ankle. FINDINGS: Right knee: There is lateral tibial plateau vertical fracture of unknown age. The medial tibial plateau is normal. Mild to moderate suprapatellar joint effusion seen. The patella is unremarkable. There is a distal femoral intramedullary seth for right hip fracture. There is mild osteopenia. Right foot: There is no visible acute fracture, dislocation or subluxation seen. There is mild reduction in the joint space. Mild lateral fifth MTP joint soft tissue swelling is noted.. There is a moderate size calcaneal heal and retrocalcaneal enthesophytes. Right ankle: The ankle mortise and subtalar joints are normal. No visible acute fracture, dislocation or subluxation seen. The soft tissues are normal. XR/XR knee RT 2V IMPRESSION: 1.? Vertical fracture lateral tibial plateau of unknown age. There is mild to moderate suprapatellar joint effusion. 2.? There is no visible acute fracture or dislocation right foot or right ankle. There is mild lateral fifth MTP joint soft tissue swelling. 3.? There is a moderate size calcaneal heal and retrocalcaneal enthesophytes. No ankle fractures seen. 4. Mild soft tissue swelling lateral fifth MTP joint. No bony or joint abnormality seen involving the right foot. Dictated By: Don Cardoza MD Signed By: Electronically signed by Don Cardoza MD 12/01/22 0941 EXAMINATION: XR HIP, RIGHT CLINICAL INFORMATION: Fall, pain. COMPARISON: Right hip 06/23/2022 . TECHNIQUE: Two views of the right hip. FINDINGS: There is intramedullary medullary femoral seth and a compression screw stabilizing intertrochanteric fracture. There is hypertrophic callus formation along the right hip. There is no dislocation. No recurrent fracture identified. There is no listhesis seen along the intramedullary femoral seth. XR/XR hip RT w PEL1V IMPRESSION: Intramedullary femoral seth and compression screw stabilizing intertrochanteric fracture. There is hypertrophic callus formation along the right hip. No recurrent fracture seen. ? Dictated By: Don Cardoza MD Signed By: Electronically signed by Don Cardoza MD 12/01/22 0945 EXAMINATION: CT KNEE WITHOUT CONTRAST, RIGHT CLINICAL INFORMATION: Fracture. Pain.? COMPARISON: Right knee radiographs done earlier the same day.? TECHNIQUE: Contiguous axial CT images of the right knee were obtained without contrast. Sagittal and coronal reformats were provided and reviewed.? This CT examination was performed using dose optimization techniques as appropriate, variously including the following: *Automated exposure control *Adjustment of mA and/or kV according to patient size (this includes techniques or standardized protocols for targeted exams where dose is matched to indication/reason for exam; i.e. extremities or head) *Use of iterative reconstruction technique DLP: 165 mGy-cm FINDINGS: Comminuted and displaced fracture through the posterolateral aspect of the lateral tibial plateau. Overall, the fracture measures up to 3.3 x 2.8 cm (AP x ML). There is up to 0.6 cm of depression/cortical step-off along the articular surface. There are extensions of the fracture line to the lateral cortex and contacting the proximal tibiofibular joint as well as to the posterior cortex. The largest fracture fragment measures up to 5.2 cm in greatest dimension. Multiple small fracture fragments are seen along the periphery and posterior aspect of the fracture. No additional tibial plateau fracture. No fibular head fracture. Findings are consistent with a Schatzker type III fracture. Mild osteopenia. Small tricompartmental marginal osteophytes. No concerning lytic or blastic osseous lesion. Partially visualized distal femoral ORIF. Fvlkydat-ly-fbrcp lipohemarthrosis. Atherosclerotic calcifications. No abnormal soft tissue mass or fluid collection.? CT/CT knee RT wo IV con IMPRESSION: 1. Comminuted and displaced fracture through the posterolateral aspect of the lateral tibial plateau with up to 0.6 cm of depression/cortical step-off along the articular surface. Multiple small fracture fragments along the periphery and posterior aspect of the fracture. Findings are consistent with a Schatzker type III fracture. ? 2. Glqcvzzk-rb-mjwiz lipohemarthrosis. ? 3. Mild osteopenia. ? 4. Mild tricompartmental osteoarthritis. Dictated By: Juan Howell MD Signed By: Electronically signed by Juan Howell MD 12/01/22 1126 Discharge Plan Discharge Clinical Impression: Fracture, tibia Patient Disposition: Home, Self-Care Instructions: Leg Fracture (ED), Crutch Instructions (ED) Additional Instructions: Follow up with your primary care provider and an orthopedic provider. Return to the emergency department immediately if your symptoms worsen or if you develop any dizziness, shortness of breath, difficulty breathing, chest pain, blurry vision, loss of vision, nausea, vomiting, abdominal pain, fever, chills, back pain, or any other complaints. Prescriptions: No Action oxycodone 5 mg tablet 5 mg PO ONCE PRN (Reason: Pain, Moderate (Pain Scale 4-6) 7 Days Qty: 7 0RF lisinopril 20 mg Tablet 20 mg PO BID amlodipine 5 mg Tablet 5 mg PO DAILY triamterene-hydrochlorothiazid 37.5-25 mg Tablet 1 tab PO DAILY omega 0-bly-nqo-fish oil [Fish Oil] 1,000 mg (120 mg-180 mg) Capsule 1 cap PO DAILY sennosides [Senna Lax] 8.6 mg Tablet 17.2 mg PO BEDTIME 30 Days Qty: 60 0RF acetaminophen 325 mg Tablet 325 mg PO Q4H PRN (Reason: Pain, Mild (Pain Scale 1-3)) 30 Days Qty: 240 0RF oxycodone 5 mg tablet 5 mg PO Q6H PRN (Reason: Pain, Severe) Qty: 20 0RF sulfamethoxazole-trimethoprim [Bactrim DS] 800-160 mg tablet 1 tab PO BID 10 Days Qty: 20 0RF hydrochlorothiazide 12.5 mg tablet 12.5 mg PO DAILY celecoxib [Celebrex] 200 mg capsule 200 mg PO BID 30 Days Qty: 60 3RF Referrals: [facility] [place] [facility] [Provider Group] (Follow up with an orthopedic provider. ) Xu Christianson MD [Primary Care Provider] - Print Language: Wolof
== END 2022-12-01 11:36 | disposition home or self-care (01) ==
PROVIDERS: Emergency Provider Emergency Medicine; PCP Internal Medicine
DX: S82.141A Displaced bicondylar fracture of right tibia, initial encounter for closed fracture (principal); M25.551 Pain in right hip; M25.561 Pain in right knee; M79.671 Pain in right foot; W12.XXXA Fall on and from scaffolding, initial encounter; Y93.9 Activity, unspecified; Y92.9 Unspecified place or not applicable; Y99.0 Civilian activity done for income or pay; Z79.899 Other long term (current) drug therapy
CPT/HCPCS: 73502; 73560; 73610; 73630; 73700; 99282; 99283; 99284

== ENCOUNTER → 2022-12-02 08:08 | Outpatient (BNVA) | payer MEDICARE, MEDICAID, SELFPAY | PROVIDERS: PCP Internal Medicine; Visit Provider Physician Assistant | DX: S82.141A Displaced bicondylar fracture of right tibia, initial encounter for closed fracture (principal); W12.XXXA Fall on and from scaffolding, initial encounter; Y93.H3 Activity, building and construction; Y92.9 Unspecified place or not applicable; Y99.8 Other external cause status | CPT/HCPCS: 99212 ==

== ENCOUNTER 2022-12-13 11:23 | Day surgery (SDC) | payer MEDICARE, MEDICAID, SELFPAY ==
--- NOTE | 2022-12-12 09:39 | HO.ANESPROP2 ---
Documented by User: Lisa Kline NP 12/12/22 09:43 HPI - Anesthesia Eval Consult details Narrative: 67yo M for Right Tibia plateau ORIF ETOH abuse with hx of falls previously PMFSH Active Problems Active Problems: All Active Problems (Updated 12/02/22 @ 08:42 by Kelsi Lopez) Fracture of right tibial plateau (Acute) Other bursitis, not elsewhere classified, right hip (Acute) Right hip pain (Acute) History of fracture of right hip (Acute) Intertrochanteric fracture (Acute) Past Medical History Medical History (Updated 12/12/22 @ 09:42 by Lisa Kline NP) Alcoholism Anemia Aspiration pneumonia Falls HTN (hypertension) Social History Social History Household Members: Spouse Housing: House Do you presently have visiting nurse or other home services: No Alcohol intake: current Alcohol intake frequency: a few times a week Patient Tobacco Use Status: Former Tobacco user Are you DNR?: No Advance Directives: No Advance Directives Information Provided: Yes Advance Directives Date on File: 09/24/20 service: No Current occupational status: employed 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 [employer] Allergies Allergy/AdvReac Type Severity Reaction Status Date / Time No Known Allergies Allergy Verified 12/02/22 08:23 [No Known Allergies*] Home Medications Medication Instructions Recorded Confirmed Last Taken Type amlodipine 5 mg tablet 5 mg PO DAILY 09/18/20 09/18/20 12/12/22 History lisinopril 20 mg tablet 20 mg PO BID 09/18/20 09/18/20 12/12/22 History omega 3-neg-pic-fish oil 1,000 mg 1 cap PO DAILY 09/18/20 09/18/20 11/29/22 History (120 mg-180 mg) capsule (Fish Oil) hydrochlorothiazide 12.5 mg tablet 12.5 mg PO DAILY 06/23/22 12/12/22 History Exam Exam Date and Time: December 12, [id number] Assessment and Plan Assessment Anesthesia Assessment: Chart Reviewed Documented by User: Neville Michele MD 12/13/22 12:36 [facility] Past Medical History Medical History (Updated 12/12/22 @ 09:42 by Lisa Kline NP) Alcoholism Anemia Aspiration pneumonia Falls HTN (hypertension) Family History Family history of problems with anesthesia: No Surgical History History of Problems with Anesthesia: No Social History Social History Household Members: Spouse Housing: House Do you presently have visiting nurse or other home services: No Alcohol intake: current Alcohol intake frequency: a few times a week Patient Tobacco Use Status: Former Tobacco user Are you DNR?: No Advance Directives: No Advance Directives Information Provided: Yes Advance Directives Date on File: 09/24/20 service: No Current occupational status: employed 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 Meds Allergies Allergy/AdvReac Type Severity Reaction Status Date / Time No Known Allergies Allergy Verified 12/02/22 08:23 [No Known Allergies*] Home Medications Medication Instructions Recorded Confirmed Last Taken Type amlodipine 5 mg tablet 5 mg PO DAILY 09/18/20 09/18/20 12/12/22 History lisinopril 20 mg tablet 20 mg PO BID 09/18/20 09/18/20 12/12/22 History omega 7-vwi-xok-fish oil 1,000 mg 1 cap PO DAILY 09/18/20 09/18/20 11/29/22 History (120 mg-180 mg) capsule (Fish Oil) hydrochlorothiazide 12.5 mg tablet 12.5 mg PO DAILY 06/23/22 12/12/22 History Exam Airway Mallampati Class: III TM Dist: >3cm Neck ROM: Full Loose/Missing/Broken Teeth: No Heart: [id number] Lungs: cta b/l Assessment and Plan Assessment Anesthesia Assessment: Anesthesia Plan Discussed Final Anesthetic Review Family History of Problems with Anesthesia: No History of Problems with Anesthesia: No NPO: Yes ASA Class: III Final Preanesthetic Review: No Changes in Pt Med Stat, Meds/Allgs Chart Reviewed, Consent Obtained/Reviewed and Anes Risks/Benef Reviewed Patient Risk: Intermediate Procedure Risk: Intermediate Assessment/Block/Sedation in SS: Assess/Block/Sedation-SS Anesthetic Plan Anesthetic Plan: GA and Agree w/ Assess. and Plan Disposition: Standard PACU
[2022-12-13] VITALS (16 sets, daily range): BP systolic 109–153; BP diastolic 69–86; PULSE 69–81; RESP 12–20; TEMP 36.1–37.1; O2SAT 92–98; BMI 32.7
--- NOTE | 2022-12-13 | ECG_ITS ---
Test Reason : pre op Blood Pressure : / mmHG Vent. Rate : 071 BPM Atrial Rate : 071 BPM P-R Int : 160 ms QRS Dur : 084 ms QT Int : 424 ms P-R-T Axes : 081 008 044 degrees QTc Int : 460 ms Normal sinus rhythm with sinus arrhythmia Cannot rule out Inferior infarct , age undetermined Abnormal ECG When compared with ECG of 18-SEP-2020 11:39, Nonspecific T wave abnormality, improved in Inferior leads Nonspecific T wave abnormality no longer evident in Lateral leads Referred By: Lisa Kline Electronically Signed By:Trevor Hardy
--- NOTE | ~2022-12-13 | FL_ITS ---
EXAMINATION: XR FLUOROSCOPY WITH IMAGES CLINICAL INFORMATION: Tibial plateau fracture. Reduction. COMPARISON: Radiographs right knee 12/01/2022, CT right knee 12/01/2022. TECHNIQUE: Fluoroscopy Supervised By: Dr. Naren Walls. Fluoroscopy Time: 1.0 minutes. Cumulative Dose: 7.31 mGy. DAP: 0.127 Gycm2. Images: 6. FINDINGS: There are postoperative changes with compression plate and multiple screws and probable intraosseous cement augmentation within the lateral proximal tibial metaphysis. The hardware is intact. Fracture fragments are in near-anatomic alignment. No dislocation. There is an intramedullary seth femoral shaft as before. FL/FL guidance in OR IMPRESSION: Fluoroscopy for orthopedic reduction.
[2022-12-13 12:14] LABS: Hematocrit 43.6 % (42.0-52.0); Hemoglobin 15.4 g/dl (14.0-18.0); Mean Corpuscular HGB Conc 35.3 g/dl (31.0-36.0); Mean Corpuscular Hemoglobin 34.1 pg (27.0-33.0); Mean Corpuscular Volume 96.5 fL (80.0-98.0); Mean Platelet Volume 10.3 fL (9.4-12.4); Platelet Count 295 X10*3/uL (160-400); Red Blood Count 4.52 X10*6/uL (4.60-5.80); White Blood Count 9.4 X10*3/uL (4.8-10.8)
--- NOTE | 2022-12-13 12:23 | MHC.SHP ---
Pre-Procedural Eval Section A Date of Service: 12/13/22 The patient is an INPATIENT: No Changes since office visit: No Cold of Flu in the past 2 weeks, No New Medical Problems, No Changes in Medication and No Patient answered all questions The History & Physical has been completed within 30 days and I have reviewed it.: Yes Section B Chief Complaint: Displaced bicondylar fracture of right tibia, init Allergies: Allergies Allergy/AdvReac Type Severity Reaction Status Date / Time No Known Allergies Allergy Verified 12/02/22 08:23 [No Known Allergies*] Plan I have reviewed the history and physical and performed a pertinent physical examination on my patient. No changes have occurred unless specified. Time Spent With Patient Time: Total time managing care of this patient today ____ minutes.
[2022-12-13 12:26] LABS: Anion Gap 13 (12-20); Blood Urea Nitrogen 11 mg/dL (9-16); Calcium 9.5 mg/dL (8.4-10.2); Carbon Dioxide 28 mmol/L (22-29); Chloride 103 mmol/L (96-108); Creatinine Clr Calc Pharmacy 105.2; Estimated Glomerular Filt Rate > 60; Glucose Fasting 149 mg/dL (60-99); Potassium 3.9 mmol/L (3.3-5.1); Sodium 140 mmol/L (135-145)
--- NOTE | 2022-12-13 15:12 | PM.OP ---
Brief Operative Note Date of Service: 12/13/22 Pre-op diagnosis: Right tibial plateau fracture Post-op diagnosis: same Procedure: ORIF right tibial plateau Implants: Jamel Surgeon: Naren Walls MD Anesthesia: GETA and local Was an Construction Site Crossing Guard used for this Procedure?: Yes Construction Site Crossing Guard: Eitan Chavira Estimated blood loss (mL): 100 Tourniquet time (min): 80 IV fluids (mL): 1,200 Pathology: none sent Condition: stable Disposition: PACU
[2022-12-13] MEDS: oxyCODONE HCl Immed Release 5 MG TABLET 10 MG PO (15:37)
[2022-12-13] MEDS: HYDROmorphone HCl 0.5 MG/0.5 ML SYRINGE IVPUSH ×3 (15:47→16:27)
--- NOTE | 2022-12-13 15:54 | PHA.MEDREC ---
Pharmacy Consult ? Medication Reconciliation Pharmacy has completed the medication reconciliation. completed by rn reviewed by pharmacy
[2022-12-13] MEDS: Acetaminophen 1,000 MG/100 ML PIGGYBACK 400 MG IV (15:58)
--- NOTE | 2022-12-13 17:08 | PC.NURSE ---
meal tray ordered for patient. taking po fluids. new ice packs placed to left leg. dressing remains c/d/i
[2022-12-13] MEDS: 0.9 % Sodium Chloride Flush 3 ML SYRINGE IVFLUSH (18:12)
[2022-12-13] MEDS: Lactated Ringers 1,000 ML 100 ML IVCONT (18:12)
--- NOTE | 2022-12-13 18:32 | P.CONHOSP_ITS ---
History of Present Illness Data of Consult Service Date: 12/13/22 Requesting physician: Eitan Chavira Primary Care Provider: Xu Christianson MD [facility] Reason for consult: medical management 67 year old male with history hypertension and binge drinking admitted to Orthopedic surgery for management of right tibial plateau fracture s/p ORIF with consult placed hospitalist service for medical management. He has no complaints at this time except for mild nausea which is resolving. He states he does drink ?a couple shots? daily for several days in the row but then will not drink for several more days. He has not had any alcohol in the last 4-5 days. Denies any history of alcohol withdrawal or seizures. No illicit drug use or cigarette smoking. Review of Systems Review of Systems: General: No fevers, malaise, unintentional weight loss HEENT: No blurred vision, diplopia. No sore throat, nasal congestion, rhinorrhea, sinus pain, ear pain Cardiovascular: No chest pain, palpitations, or leg edema Respiratory: No shortness of breath, wheezing, cough GI: +nausea. No abdominal pain, vomiting, diarrhea, constipation, melena, hematochezia : No dysuria, hematuria, increased urinary frequency, decreased urinary output MSK: No myalgia, back pain. +right knee pain Neuro: No headaches, weakness, paresthesias Skin: No rashes or lesions PMFSH Medical History Alcohol abuse Alcoholism Anemia Aspiration pneumonia Falls HTN (hypertension) Social History Household Members: Spouse Housing: House Do you presently have visiting nurse or other home services: No Alcohol intake: current Alcohol intake frequency: a few times a week Patient Tobacco Use Status: Former Tobacco user Are you DNR?: No Advance Directives: No Advance Directives Information Provided: Yes Advance Directives Date on File: 09/24/20 service: No Current occupational status: employed 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 Meds Allergies Allergy/AdvReac Type Severity Reaction Status Date / Time No Known Allergies Allergy Verified 12/02/22 08:23 [No Known Allergies*] Active Medications: Current Medications Acetaminophen (Acetaminophen 325 Mg Tablet) 650 mg PO Q6H PRN PRN Reason: Pain, Mild (Pain Scale 1-3) Celecoxib (Celecoxib 200 Mg Capsule) 200 mg PO BID [facility] Docusate Sodium (Docusate Sodium 100 Mg Capsule) 100 mg PO BID [facility] Enoxaparin Sodium (Enoxaparin Sodium 40 Mg/0.4 Ml Syringe) 40 mg SUBCUT Q24H [facility] Hydromorphone HCl (Hydromorphone Hcl 0.5 Mg/0.5 Ml Syringe) 0.25 mg IVPUSH Q4H PRN; Protocol PRN Reason: Pain, Severe (Pain Scale 7-10) Cefazolin Sodium/Dextrose (Ancef) 2 gm in 50 mls @ 100 mls/hr IV POSTOP ONE Stop: 12/13/22 19:29 Lactated Ringer's (Lr) 1,000 mls @ 100 mls/hr IVCONT .Q10H [facility] Stop: 12/14/22 17:57 Last Admin: 12/13/22 18:12 Dose: 100 mls/hr Ondansetron HCl (Ondansetron Hcl 4 Mg/2 Ml Vial) 4 mg IVPUSH Q8H PRN PRN Reason: Nausea and Vomiting Oxycodone HCl (Oxycodone Hcl Immed Release 5 Mg Tablet) 10 mg PO Q4H PRN PRN Reason: Pain, Moderate (Pain Scale 4-6 Oxycodone HCl (Oxycodone Hcl Er 10 Mg Tab.Er.12h) 10 mg PO BID [facility] Sodium Chloride (0.9 % Sodium Chloride Flush 3 Ml Syringe) 3 ml IVFLUSH QSHIFT [facility] Last Admin: 12/13/22 18:12 Dose: 3 ml Home Medications Medication Instructions Recorded Confirmed Last Taken Type amlodipine 5 mg tablet 5 mg PO DAILY 09/18/20 12/13/22 12/12/22 History lisinopril 20 mg tablet 20 mg PO BID 09/18/20 12/13/22 12/12/22 History omega 0-xdp-aoq-fish oil 1,000 mg 1 cap PO DAILY 09/18/20 12/13/22 11/29/22 History (120 mg-180 mg) capsule (Fish Oil) hydrochlorothiazide 12.5 mg tablet 12.5 mg PO DAILY 06/23/22 12/13/22 12/12/22 History Physical Exam Vital Signs and Narrative: Vital Signs: Last Vital Signs Temp 97.6 F 12/13/22 17:37 Pulse 78 12/13/22 17:37 Resp 14 12/13/22 17:37 BP 142/82 H 12/13/22 17:37 Pulse Ox 98 12/13/22 17:37 O2 Del Method Nasal Cannula wit h Capnography 12/13/22 17:37 O2 Flow Rate 2 12/13/22 17:37 BMI result Body Mass Index 32.7 Results Labs 12/13/22 12:04 12/13/22 12:04 Labs: Laboratory Results - last 24 hr 12/13/22 12/13/22 12:04 12:04 MCV 96.5 MCH 34.1 H MCHC 35.3 RDW 11.0 Plt Count 295 D MPV 10.3 Absolute Nucleated RBC 0.000 Nucleated RBC % (auto) 0.0 Anion Gap 13 Estim Creat Clear Calc 105.2 Estimated GFR > 60 Fasting Glucose 149 H Calcium 9.5 Assessment and Plan (1) Fracture of right tibial plateau: Status: Acute Plan 67 year old male with history hypertension and binge drinking admitted to Orthopedic surgery for management of right tibial plateau fracture s/p ORIF with consult placed hospitalist service for medical management. #Right tibial plateau fracture s/p ORIF -plan per orthopedic surgery -pain management per Orthopedic surgery #HTN- reasonably controlled -resume antihypertensives a.m. #Alcohol use disorder -binge drinking, last consumed 4-5 days ago -outside window withdrawal Thank you for allowing me to participate in this consult. Signing off at this time. Please do not hesitate to call for further questions. Time Spent With Patient Time: Total time managing care of this patient today ____ minutes.
[2022-12-13] MEDS: oxyCODONE HCl ER 10 MG TAB.ER.12H PO (19:36)
[2022-12-13] MEDS: Celecoxib 200 MG CAPSULE PO (19:36)
[2022-12-13] MEDS: Docusate Sodium 100 MG CAPSULE PO (19:36)
[2022-12-13] MEDS: ceFAZolin Sodium/Dextrose,Iso 2 GM/50 ML PIGGYBACK IV (19:40)
[2022-12-14] MEDS: HYDROmorphone HCl 0.5 MG/0.5 ML SYRINGE 0.25 MG IVPUSH ×2 (00:10→09:52)
[2022-12-14] MEDS: Acetaminophen 325 MG TABLET 650 MG PO ×2 (01:21→11:42)
[2022-12-14] MEDS: oxyCODONE HCl Immed Release 5 MG TABLET 10 MG PO ×3 (01:22→11:41)
[2022-12-14 03:26] VITALS: BP 190/91; PULSE 70; RESP 17; TEMP 36.4; O2SAT 95
[2022-12-14] MEDS: HYDROmorphone HCl 1 MG/ML SYRINGE IVPUSH (03:45)
[2022-12-14] MEDS: Lactated Ringers 1,000 ML 100 ML IVCONT (03:47)
--- NOTE | 2022-12-14 05:51 | P.PNOP_ITS ---
Subjective Subjective Date of Service: 12/14/22 Interval history: POD 1 s/p ORIF RT Tibia plateau Physical Exam Vital Signs: Vital Signs: Last Vital Signs Temp 97.5 F 12/14/22 03:26 Pulse 70 12/14/22 03:26 Resp 17 12/14/22 03:26 BP 190/91 H 12/14/22 03:26 Pulse Ox 95 12/14/22 03:26 O2 Del Method Room Air 12/14/22 03:26 O2 Flow Rate 2 12/13/22 17:37 BMI result Body Mass Index 32.7 Const: General: cooperative, healthy appearing and no acute distress Resp: Effort & Inspection: normal respiratory effort and able to speak in complete sentences Cardio: Rate: regular rate Peripheral pulses: Peripheral pulses 2+ throughout GI: Palpation (GI): Soft to palpation Skin: General skin exam: no rashes or lesions noted Extrem: Other: bandage clean dry and intact. Brace intact. No erythema or joint effusion. Calf supple nontender. ANkle and Foot ROm intact .Neurovascularly intact. Progress Note: A&P Assessment and plan (1) Fracture of right tibial plateau: Status: Acute Assessment and Plan: * Continue pain mgmnt * Begin Lovenox for dvt ppx * begin PT for ORIF right tib plateau-NWB RLE, NWB ROM OK, Brace locked in extension while ambulating * Dispo planning-Pending PT eval, pain mgmnt Time Spent With Patient Time: Total time managing care of this patient today ____ minutes.
[2022-12-14 06:59] LABS: Basophils Absolute Auto 0.1 X10*3/uL (0.0-0.2); Basophils Percent Auto 0.4 % (0-2); Eosinophils Percent Auto 0.1 % (0-4); Hematocrit 38.4 % (42.0-52.0); Hemoglobin 13.2 g/dl (14.0-18.0); Imm Gran Abs Auto 0.07 X10*3/uL (0.00-0.03); Imm Gran Pct Auto 0.5 % (0.0-0.4); Lymphocytes Absolute Auto 2.5 X10*3/uL (1.2-4.9); Lymphocytes Percent Auto 17.6 % (20-40); MANUAL DIFF FLAG SCAN; Mean Corpuscular HGB Conc 34.4 g/dl (31.0-36.0); Mean Corpuscular Hemoglobin 34.2 pg (27.0-33.0); Mean Corpuscular Volume 99.5 fL (80.0-98.0); Mean Platelet Volume 10.6 fL (9.4-12.4); Monocytes Absolute Auto 1.9 X10*3/uL (0.1-1.2); Neutrophils Absolute Auto 9.7 x10*3/uL (2.0-8.3); Neutrophils Percent Auto 68.4 % (45-73); Platelet Count 258 X10*3/uL (160-400); Red Blood Count 3.86 X10*6/uL (4.60-5.80); Red Cell Distribution Width 11.1 % (11.0-16.0); SCAN SMEAR FLAG 1; White Blood Count 14.2 X10*3/uL (4.8-10.8)
[2022-12-14 07:06] VITALS: BP 179/80; PULSE 71; RESP 18; TEMP 36.1; O2SAT 92
[2022-12-14 07:14] LABS: Anion Gap 15 (12-20); Blood Urea Nitrogen 13 mg/dL (9-16); Calcium 8.9 mg/dL (8.4-10.2); Carbon Dioxide 29 mmol/L (22-29); Chloride 100 mmol/L (96-108); Creatinine Clr Calc Pharmacy 122.5; Estimated Glomerular Filt Rate > 60; Glucose Fasting 130 mg/dL (60-99); Potassium 4.5 mmol/L (3.3-5.1); Sodium 139 mmol/L (135-145)
--- NOTE | 2022-12-14 07:15 | PM.PNORT ---
Subjective Subjective Date of Service: 12/14/22 Interval history: POD1 s/p rt tibial plateau ORIF. No overnight events. Pain is managed. No additional complaints. Physical Exam Vital Signs: Vital Signs: Last Vital Signs Temp 97 F 12/14/22 07:06 Pulse 71 12/14/22 07:06 Resp 18 12/14/22 07:06 BP 179/80 H 12/14/22 07:06 Pulse Ox 92 12/14/22 07:06 O2 Del Method Room Air 12/14/22 07:06 O2 Flow Rate 2 12/13/22 17:37 BMI result Body Mass Index 32.7 Const: General: cooperative, healthy appearing and no acute distress Resp: Effort & Inspection: normal respiratory effort and able to speak in complete sentences Cardio: Rate: regular rate Peripheral pulses: Peripheral pulses 2+ throughout GI: Palpation (GI): Soft to palpation Skin: Lesions: no lesions Rashes: no rashes Extrem: Other: Right knee dressings are c/d/i. Able to dorsi/plantar flex. NVI. Procedures Date of Service Date of Service: 12/14/22 Progress Note: A&P Assessment and plan (1) Fracture of right tibial plateau: Status: Acute Plan Continue pain mgmnt Continue Lovenox for dvt ppx begin PT for Rt tibial plateau ORIF -Brace may be removed in bed -Brace to remain on at all times while ambulating -NWB RLE x 3 months Dispo planning-Pending PT eval, pain mgmnt Time Spent With Patient Time: Total time managing care of this patient today ____ minutes. Quality Stroke Does the patient have a stroke diagnosis?: No VTE Prior VTE?: Yes VTE Risk Level:: Medical - moderate - high VTE Device Contraindication: N/A - Device Ordered VTE Drug Contraindication: N/A - Med Ordered
[2022-12-14] MEDS: oxyCODONE HCl ER 10 MG TAB.ER.12H PO (07:47)
[2022-12-14] MEDS: Docusate Sodium 100 MG CAPSULE PO (07:47)
[2022-12-14] MEDS: Celecoxib 200 MG CAPSULE PO (07:47)
[2022-12-14 08:31] LABS: SLIDE REVIEW VERIFIED
[2022-12-14 08:44] VITALS: BP 179/80; PULSE 71; O2SAT 92
--- NOTE | 2022-12-14 11:21 | P.DS_ITS ---
DS: Providers Provider Date of Service: 12/14/22 Primary care physician: Xu Christianson MD Consults: 12/13/22 17:58 Consult to Hospitalist Routine Comment: h/o ETOH abuse Consulting Provider: Hospitalist Reason For Exam: h/o ETOH abuse DS: Diagnosis Discharge Diagnosis (1) Fracture of right tibial plateau: Status: Acute DS: Summary Hospital Course Hospital Course: The patient underwent a successful ORIF Right tibial plateau , was transferred to PACU and then to the floor to recover. During their stay, their vitals were stable, afebrile at 97.0 . Labs were unremarkable, H/H 13.2/38.4. POD 1 he was started on Lovenox for DVT ppx, they also received Physical Therapy services twice a day. Physical therapy should include gait training, Non weight bearing ROM, Isometric quad exercises. Knee brace should be worn with ambulation only to provide stability while walking, prn. Ok to remove while at rest. Prior to discharge, dressing clean dry and intact. The Aquacel dressing shoulder remain intact and dry at all times. Any concerns with the dressing, please contact orthopedic office. No showering. The plan is to be discharged home with [facility]NA services. Time Spent with Patient Time attestation: Total time managing care of this patient today ____ minutes. Discharge coordination time: Less than 30 minutes Quality: Safe Use of Opioids Does Pt have an Active Cancer Diagnosis on the Problem List?: No Quality: Stroke Does the patient have a stroke diagnosis?: No Physical Exam Vital Signs: Vital Signs: Last Vital Signs Temp 97 F 12/14/22 07:06 Pulse 71 12/14/22 08:44 Resp 18 12/14/22 07:06 BP 179/80 H 12/14/22 08:44 Pulse Ox 92 12/14/22 08:44 O2 Del Method Room Air 12/14/22 07:06 O2 Flow Rate 2 12/13/22 17:37 BMI result Body Mass Index 32.7 Const: General: cooperative, healthy appearing and no acute distress Resp: Effort & Inspection: normal respiratory effort and able to speak in complete sentences Cardio: Rate: regular rate Peripheral pulses: Peripheral pulses 2+ throughout GI: Palpation (GI): Soft to palpation Skin: Lesions: no lesions Rashes: no rashes Extrem: Other: Right knee dressings are c/d/i. Able to dorsi/plantar flex. NVI. DS: Data Data Completed and Pending Completed studies during hospitalization [Text1]: Procedures Reposition Right Upper Femur with Intramedullary Internal Fixation Device, Percutaneous Approach (09/18/20) Labs on day of discharge: Laboratory Results - last 24 hr 12/13/22 12/13/22 12/14/22 12:04 12:04 06:23 WBC 9.4 14.2 H RBC 4.52 L 3.86 L Hgb 15.4 13.2 L Hct 43.6 38.4 L MCV 96.5 99.5 H MCH 34.1 H 34.2 H MCHC 35.3 34.4 RDW 11.0 11.1 Plt Count 295 D 258 MPV 10.3 10.6 Immature Gran % (Auto) 0.5 H Neut % (Auto) 68.4 Lymph % (Auto) 17.6 L [place] % (Auto) 13.0 H Eos % (Auto) 0.1 Baso % (Auto) 0.4 Lymph # (Auto) 2.5 [place] # (Auto) 1.9 H Eos # (Auto) 0.0 Baso # (Auto) 0.1 Abs Immat Gran (auto) 0.07 H Absolute Neuts (auto) 9.7 H Absolute Nucleated RBC 0.000 0.000 Nucleated RBC % (auto) 0.0 0.0 Smear Tech's Comments VERIFIED Sodium 140 Potassium 3.9 Chloride 103 Carbon Dioxide 28 Anion Gap 13 BUN 11 Creatinine 0.92 Estim Creat Clear Calc 105.2 Estimated GFR > 60 Fasting Glucose 149 H Calcium 9.5 12/14/22 06:23 WBC RBC Hgb Hct MCV MCH MCHC RDW Plt Count MPV Immature Gran % (Auto) Neut % (Auto) Lymph % (Auto) [place] % (Auto) Eos % (Auto) Baso % (Auto) Lymph # (Auto) [place] # (Auto) Eos # (Auto) Baso # (Auto) Abs Immat Gran (auto) Absolute Neuts (auto) Absolute Nucleated RBC Nucleated RBC % (auto) Smear Tech's Comments Sodium 139 Potassium 4.5 Chloride 100 Carbon Dioxide 29 Anion Gap 15 BUN 13 Creatinine 0.79 Estim Creat Clear Calc 122.5 Estimated GFR > 60 Fasting Glucose 130 H Calcium 8.9 D Discharge Plan Discharge Patient Disposition: Home Health Service Referrals: Luna Hidalgo PA-C [Physician [employer]] - 1 Week (12/19/22 08:45 [facility] [place] Orth[facility] Surgeons Luna Hidalgo PA-C) [facility] [Physician] - 1 Week Discharge Medications: New acetaminophen 325 mg Tablet 650 mg PO Q6H PRN (Reason: Pain, Mild (Pain Scale 1-3)) 30 Days Qty: 240 0RF celecoxib 200 mg Capsule 200 mg PO BID 30 Days Qty: 60 0RF docusate sodium 100 mg Capsule 100 mg PO BID 14 Days Qty: 28 0RF oxycodone 5 mg Tablet 5 mg PO Q4H PRN (Reason: Pain, Moderate (Pain Scale 4-6) 7 Days Qty: 42 0RF Rx Instructions: Partial Fill upon patient request. Continued lisinopril 20 mg Tablet 20 mg PO BID amlodipine 5 mg Tablet 5 mg PO DAILY omega 7-grc-sxm-fish oil [Fish Oil] 1,000 mg (120 mg-180 mg) Capsule 1 cap PO DAILY hydrochlorothiazide 12.5 mg tablet 12.5 mg PO DAILY Discontinued oxycodone 5 mg tablet 5 mg PO TID PRN (Reason: pain) 7 Days Qty: 21 0RF Rx Instructions: Partial Fill upon patient request. celecoxib [Celebrex] 200 mg capsule 200 mg PO BID 30 Days Qty: 60 3RF Discharge Orders: Discharge Order (Routine); Ordered 12/14/22 Ordered By: Eitan Chavira Diet: Regular diet Activity on Discharge: Use Splints or Immobilizers Activity Restrictions/Additional Instructions: Continue Lovenox for dvt ppx begin PT for Rt tibial plateau ORIF -Brace may be removed in bed -Brace to remain on at all times while ambulating -NWB RLE x 3 months Elevate leg above level of the heart on 3 pillows to help with swelling Follow up appt: 12/19/22 08:45 [facility] [place] Orthopedic Surgeons Luna Hidalgo PA-C
--- NOTE | 2022-12-14 12:07 | MHC.CM.PN ---
Addendum entered by Jennifer Finley 12/14/22 12:09: Same day surgery no IMM Original Note: IMM 12/14/22 Male 67 S/P tibia fx repair Patient is discharged to home with [facility]. Patient has arranged for transportation home.
--- NOTE | 2022-12-14 12:41 | HO.POSTANES ---
Post Anesthesia Evaluation Post Anesthesia Evaluation Vital Signs: Vital Signs Temp Pulse Resp BP Pulse Ox O2 Del Method 12/14/22 08:44 71 179/80 H 92 12/14/22 07:06 97 F 71 18 179/80 H 92 Room Air 12/14/22 03:26 97.5 F 70 17 190/91 H 95 Room Air Anesthesia: General Mental Status: Awake Pain Control: Satisfactory Nausea/Vomiting: None Hydration: Adequate Anesthesia-Related Issues: No Anes. Related Issues
--- NOTE | 2022-12-20 09:14 | W.PM.OPN ---
Operative Note Operative Note Date of Service: 12/13/22 Narrative: Date of Service: 12/13/22 Pre-op diagnosis: Right tibial plateau fracture Post-op diagnosis: same Procedure: ORIF right tibial plateau Implants: Jamel Surgeon: Naren Walls MD Anesthesia: GETA and local Was an Metal Hanging Helper used for this Procedure?: Yes Metal Hanging Helper: Eitan Chavira Estimated blood loss (mL): 100 Tourniquet time (min): 80 IV fluids (mL): 1,200 Pathology: none sent Condition: stable Disposition: PACU Procedure in detail: Patient was brought to the operating room and placed supine on the surgical table. He was prepped and draped in standard sterile fashion and a time out was called to identify proper site, proper procedure and IV antibiotics per weight were administered. I began by exsanguinating the limb. I then made a curvilinear incision over the ITB extending distally over the joint line and arching anteriorly over Gerdy's tubercle. Full thickness skin flaps were developed and the ITB was incised in line with the skin incision. The capsule was identified and then incised releasing hematogenous fluid. The coronal ligaments were transected and the lateral meniscus was tagged and retracted proximally. There was split-depressed lateral plateau fracture. I elevated the ITB off of Gerdy's tubercle and lateral and distal to this I made a small cortical window and placed a tamp through this. Under both radiographic and direct visualization I tamped up the articular surface until I was satisfied that the articular anatomy was as closely reprocuced as possible. I made small incision medially and placed a large C-clamp over the plateau and reduced the lateral fragment. At the same time I placed 5 ml of Hydroset through the cortical window. Once this was dry a lateral locking plate was selected and then placed. Using standard AO technique my proximal locking screws and distal non-locking cortical screws were placed. Biplanar fluro was used to confirm fracture reduction and hardware alignment. Once I was satisfied with both final fluorscopic images were taken. The tourniquet was then let down and there was no brisk bleeding. The anterior compartment fascia was left open. A layered closure was performed with the meniscus repaired to the capsule laterally and then the ITB and then skin with absorbable subq and the oksana. Sterile dressings were applies and a hinged knee brace as well. Patient was extubated and brought to the recovery room in stable condition. There were no known complications.
--- NOTE | 2023-01-05 11:01 | W.MHC.F2F ---
Service Date Service Date: 01/05/23 Encounter Date of encounter: 01/05/23 Reasons for Services Signs and symptoms assessed: s/p rt tibial plateau ORIF Reason for physical therapy: home safety and mobility, therapeutic exercises, restore joint function, gait/transfer training, assess need for DME and ADL training Homebound: Leaving the home is medically contraindicated at this time without the asist of a device and/or another person due th the listed conditions above and below. Reason homebound: unsteady gait / fall risk, leg weakness, pain with ambulation, pain with transfers, poor balance / fall risk and unable to drive Certification: Based on the above findings, I certify that this patient is confined to the home and needs intermittent nursing home care, physical therapy and/or speech therapy, or continues to need occupational therapy. The patient is under my care, and I have initiated the establishment of the plan of care. The patient will be followed by a physician who will periodically review the plan of care. Time Spent With Patient Time: Total time managing care of this patient today ____ minutes.
== END 2022-12-14 13:17 | disposition home health service (06) ==
LOC: HO.SSS 11:23 → HO.S3 17:33
PROVIDERS: Nurse Practitioner; Physician Assistant; PCP Internal Medicine; Visit Provider Orthopaedic Surgery
PROC: (CPT 27535; principal; 2022-12-13 14:00)
DX: S82.141A Displaced bicondylar fracture of right tibia, initial encounter for closed fracture (principal); W17.89XA Other fall from one level to another, initial encounter; Y93.H3 Activity, building and construction; Y92.9 Unspecified place or not applicable; Y99.8 Other external cause status; Z96.698 Presence of other orthopedic joint implants; I10 Essential (primary) hypertension; F10.20 Alcohol dependence, uncomplicated; D64.9 Anemia, unspecified; Z79.899 Other long term (current) drug therapy; Z91.81 History of falling; Z87.81 Personal history of (healed) traumatic fracture; Z87.891 Personal history of nicotine dependence
CPT/HCPCS: 27535; 36415; 80048; 85025; 85027; 93005; 97162; 97166; C1713; J0131; J0690; J1100; J1170; J2405; J2795; J3010

== ENCOUNTER → 2022-12-19 08:17 | Outpatient (BNVA) | payer MEDICARE, MEDICAID, SELFPAY | PROVIDERS: PCP Internal Medicine; Visit Provider Physician Assistant | DX: S82.141D Displaced bicondylar fracture of right tibia, subsequent encounter for closed fracture with routine healing (principal) | CPT/HCPCS: 99212 ==

== ENCOUNTER 2022-12-29 09:53 | Outpatient (REF) | payer MEDICARE, MEDICAID, SELFPAY | END 2022-12-29 09:54 | disposition home or self-care (01) | LOC: HO.HOSX 09:53 | PROVIDERS: Visit Provider Physician Assistant | DX: Z13.89 Encounter for screening for other disorder (principal) ==

== ENCOUNTER 2022-12-30 08:08 | Outpatient (REF) | payer MEDICARE, MEDICAID, SELFPAY ==
--- NOTE | ~2022-12-30 | XR_ITS ---
EXAMINATION: XR KNEE, RIGHT CLINICAL INFORMATION: Pain. COMPARISON: Prior examinations, most recently 12/13/2022. TECHNIQUE: AP and lateral views of the right knee. FINDINGS: There is bony demineralization. A compression plate and side screws are redemonstrated lateral aspect of the proximal tibial metaphysis. No hardware failure or loosening is seen. Adjacent cement augmentation is noted of the lateral tibial plateau. The fracture line of the lateral tibial plateau is less apparent than was noted previously. No significant right knee joint effusion is seen. The distal portion of the right femoral intramedullary seth is noted. There are skin oksana of the knee, situated both laterally and medially. No soft tissue swelling or gas is seen. There are atherosclerotic calcifications. XR/XR knee RT 2V IMPRESSION: There is well-maintained alignment status-post proximal right tibial ORIF. No hardware failure or loosening is seen.
== END 2022-12-30 08:09 | disposition home or self-care (01) ==
LOC: HO.HOSX 08:08
PROVIDERS: Visit Provider Physician Assistant
DX: S82.141D Displaced bicondylar fracture of right tibia, subsequent encounter for closed fracture with routine healing (principal); X58.XXXD Exposure to other specified factors, subsequent encounter; Z79.891 Long term (current) use of opiate analgesic
CPT/HCPCS: 73560; 99212

== ENCOUNTER 2023-01-31 09:36 | Outpatient (REF) | payer MEDICARE, MEDICAID, SELFPAY ==
--- NOTE | ~2023-01-31 | XR_ITS ---
EXAMINATION: XR KNEE, RIGHT CLINICAL INFORMATION: Pain COMPARISON: Right knee x-rays 12/30/2022 TECHNIQUE: 3 views of the right knee. FINDINGS: Diffuse osteopenia. Right femoral intramedullary seth is partially visualized and grossly unremarkable. Tibial compression plate and side screws are unchanged in orientation and demonstrate no evidence of failure. Similar cement augmentation changes involving the lateral tibial plateau. Fracture line not well visualized. No gross suprapatellar joint effusion. Vascular calcifications appreciated. XR/XR knee RT 3V IMPRESSION: Stable postsurgical changes of the right knee. No evidence of hardware failure.
== END 2023-01-31 09:37 | disposition home or self-care (01) ==
LOC: HO.HOSX 09:36
PROVIDERS: Visit Provider Physician Assistant
DX: S82.141D Displaced bicondylar fracture of right tibia, subsequent encounter for closed fracture with routine healing (principal); X58.XXXD Exposure to other specified factors, subsequent encounter
CPT/HCPCS: 73562; 99212

== ENCOUNTER 2023-03-02 12:54 | Outpatient (REF) | payer MEDICARE, MEDICAID, SELFPAY ==
--- NOTE | ~2023-03-02 | XR_ITS ---
EXAMINATION: XR KNEE, RIGHT CLINICAL INFORMATION: Knee pain. COMPARISON: Right knee 01/31/2023 along with right knee films from 12/30/2022. TECHNIQUE: Two views of the right knee. FINDINGS: Since the exam from 1 month ago, there has been no significant interval change. Again noted is the distal aspect of an intramedullary seth and screw in the right femur along with a lateral tibial plateau plate and screw device. Cement is again noted along the lateral tibia. No new fractures. XR/XR knee RT 2V IMPRESSION: No significant interval change when compared to the exam from 1 month ago.
== END 2023-03-02 12:55 | disposition home or self-care (01) ==
LOC: HO.HOSX 12:54
PROVIDERS: Visit Provider Physician Assistant
DX: S82.141D Displaced bicondylar fracture of right tibia, subsequent encounter for closed fracture with routine healing (principal)
CPT/HCPCS: 73560

== ENCOUNTER 2023-03-02 12:57 | Outpatient (AMB) | payer MEDICARE, MEDICAID, SELFPAY ==
--- NOTE | 2023-03-02 12:41 | A.OFFVIS_ITS ---
Intake Intake Visit Reasons: Postop-RT Tibial plateau ORIF-W/Xray-DOS 12/13/22 Intake Note: Adán is a 67 year old male who presents today with his for a post operative appointment s/p Right Tibial Plateau fx 12/13/22. Patient reports he knee is feeling a little but still feels some discomfort. Denies numbness and tingling. Allergies No Known Allergies [No Known Allergies*] Allergy (Verified 03/02/23 12:47) HPI Postop-RT Tibial plateau ORIF-W/Xray-DOS 12/13/22 HPI Details 67-year-old male who presents in the office today 11 weeks status post right tibial plateau ORIF, which was performed on 12/13/[address] Walls. The patient reports his knee is feeling a little better. He states he still has some discomfort. He denies numbness or tingling. Patient is accompanied in the office today by his . 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 No signs of infection. No tenderness to palpation medial or lateral joint lines. Full knee flexion and extension. Able to dorsiflex and plantarflex. NVI. Psych Mental Status: mental status grossly normal Assessment & Plan Assessment & Plan (1) Fracture of right tibial plateau: Comment: right tibial plateau ORIF 12/13/2022 NE Code(s): S82.141A - Displaced bicondylar fracture of right tibia, initial encounter for closed fracture Plan Mr. Live is a 67-year-old male who presents in the office today 11 weeks status post right tibial plateau ORIF, which was performed on 12/13/[address] Walls. The patient reports his knee is feeling a little better. He states he still has some discomfort. He denies numbness or tingling. Patient is accompanied in the office today by his . I have placed another order for outpatient physical therapy order due to the patient not attending any therapy. I have instructed the patient that if he should not hear from the physical therapy office he is to call our office and we will help arrange for him to be seen. I educated the patient that he should not be driving at this time. He will continue to wear the brace until physical therapy begins to wean him out, this will be based on ROM and quad control. Follow up will be in 6 weeks, or sooner if needed. X-rays of the right knee which were obtained while in the office today and were reviewed by me, Luna Hidalgo PA-C, revealed routine healing with intact orthopedic hardware. Orders: Orders XR knee RT 2V 03/02/23 M25.569 - Pain in unspecified knee PT Evaluation and Treatment 03/02/23 S82.141A - Displaced bicondylar fracture of right tibia, initial encounter for closed fracture Patient Instructions: Scribed for Luna Hidalgo PA-C by Kelsi Lopez medical education coordinator, on 03/02/2023 at 12:37 pm, EST. Your attestation Coding Level of Care Code Global (16368) Diagnoses Fracture of right tibial plateau S82.141A
== END 2023-03-02 13:37 | disposition home or self-care (01) ==
PROVIDERS: PCP Internal Medicine; Visit Provider Physician Assistant
DX: S82.141A Displaced bicondylar fracture of right tibia, initial encounter for closed fracture (principal)
CPT/HCPCS: 99024

== ENCOUNTER 2023-04-05 08:48 | Outpatient (REF) | payer MEDICARE, MEDICAID, SELFPAY | END 2023-04-05 08:49 | disposition home or self-care (01) | LOC: HO.HOSX 08:48 | PROVIDERS: Visit Provider Physician Assistant | DX: Z13.89 Encounter for screening for other disorder (principal) ==

== ENCOUNTER 2023-04-11 12:00 | Outpatient (RCR) | payer MEDICARE, MEDICAID, SELFPAY ==
--- NOTE | 2023-03-20 15:58 | MHC.PT.EP ---
[facility] [employer] Office [place] Office [place] Office [address] Ramón Charles [address] [phone] F: [phone] F: [phone] F: [phone] F: [phone] Physical Therapy Plan of Care Date of Evaluation: Date of Surgery: 12/13/22 Diagnosis: fracture of R tibial plateau s/p ORIF 12/13/22 Assessment: pt is a 68 y/o male presenting to physical therapy w/ referring diagnosis of fracture of right tibial plateau. pt underwent ORIF for tibial plateau fracture on 12/13/22. Impairments include pain, decreased range of motion, decreased strength, impaired functional mobility, impaired postural awareness, and altered ambulation mechanics. pt is a good candidate for skilled PT due to age, potential remediation of impairments, typical disease/condition progression and prognosis, comorbidities, and motivation. pt would benefit from skilled PT intervention to provide a tailored strengthening and stretching exercise program, functional training, gait training, postural re-training, neuromuscular re-education, modalities as needed for pain, equipment safety demonstration. Frequency and Duration: The patient will be seen 2x/wk for 4 wks Short Term Goals: pt will be I w/ HEP to promote self-management of condition. pt will improve R knee flexion by 10 degrees to promote ease in squatting. Alf Goals: pt will report a statistically significant improvement in self-reported outcome measure, LEFI, to promote return to PLOF. pt will demo proper squatting and lifting mechanics x5 reps to promote return to work-related tasks. Treatment Plan: Modalities to reduce pain, spasms and effusion. Manual therapy to restore motion and function. Therapeutic exercise to improve strength and flexibility. Neuromuscular re-education for posture and balance. Therapeutic activities to return to functional activities of daily living. Electronically signed by: Lisa Solomon PT, DPT Please sign and return to therapist. Thank you for your referral.
--- NOTE | 2023-04-27 08:08 | MHC.PT.DC ---
[facility] [place] Office [place] Office [place] Office [address] Ramón Charles [address] [phone] F: [phone] F: [phone] F: [phone] F: [phone] Physical Therapy Discharge Report Diagnosis: fracture of R tibial plateau s/p ORIF 12/13/22 Date of Surgery: 12/13/22 Date of Evaluation: 03/20/23 Date of Discharge: 04/27/23 Treatments to Date: 6 Cancellations to Date: 0 No Shows to Date: 0 Discharge Status: Improved Function Independent with HEP Discharge Summary: Per last treatment note on 04/11/23: Today was pt's last scheduled visit. He has no complaints regarding pain or current functional status. He has a follow-up w/ the orthopedic on Monday. He will call us after his follow-up then to determine if further PT is indicated at that time and if he was cleared to return to work. According to the note from the orthopedic's office on 04/12 he was cleared to return to full duty. He is discharged from this physical therapy plan of care. Electronically signed by: Lisa Solomon PT, DPT Please sign and return to therapist. Thank you for your referral.
== END 2023-04-27 08:08 | disposition home or self-care (01) ==
LOC: HO.PT 12:00
PROVIDERS: PCP Internal Medicine; Visit Provider Physician Assistant
DX: S82.141D Displaced bicondylar fracture of right tibia, subsequent encounter for closed fracture with routine healing (principal)
CPT/HCPCS: 97110; 97162; 97530

== ENCOUNTER 2023-04-17 05:29 | Outpatient (REF) | payer OTHER, MEDICARE, MEDICAID, SELFPAY ==
--- NOTE | ~2023-04-17 | XR_ITS ---
EXAMINATION: XR KNEE, RIGHT CLINICAL INFORMATION: Pain COMPARISON: Right knee radiograph from 03/02/2023 TECHNIQUE: Four views of the right knee. FINDINGS: Status post plate and screw fixation along the lateral margin of the proximal tibia diaphysis and metadiaphysis. Partially visualized anterograde intramedullary seth of the femur with single distal interlocking screw. Orthopedic hardware is grossly intact. Cement along the lateral tibial plateau. No acute visible fracture or dislocation. Multicompartment degenerative changes of the knee. A fabella is noted in the posterior compartment. Joint spaces and alignment are maintained. Trace knee joint effusion. Atherosclerotic calcifications. Soft tissues are unremarkable. XR/XR knee RT 3V IMPRESSION: 1. Status post plate and screw fixation along the lateral margin of the proximal tibia diaphysis and metadiaphysis. Partially visualized anterograde intramedullary seth of the femur with single distal interlocking screw. Orthopedic hardware is grossly intact. 2. Cement along the lateral tibial plateau. 3. No acute visible fracture or dislocation. 4. Multicompartment degenerative changes of the knee.
== END 2023-04-17 05:30 | disposition home or self-care (01) ==
LOC: HO.HOSX 05:29
PROVIDERS: Visit Provider Physician Assistant
DX: S82.141A Displaced bicondylar fracture of right tibia, initial encounter for closed fracture (principal)
CPT/HCPCS: 20610; 73562; 99212; J1040

== ENCOUNTER 2023-04-17 12:42 | Outpatient (AMB) | payer MEDICARE, MEDICAID, SELFPAY ==
--- NOTE | 2023-04-17 12:56 | A.OFFVIS_ITS ---
Intake Intake Visit Reasons: OV-RT Tibial plateau ORIF-DOS 12/13/22 Intake Note: Adán is a 67 year old male who presents today with his for his follow up visit for his s/p Right Tibial Plateau fx 12/13/22.?States his knee gives out from time to time but is doing better overall. patient also stated he was told he can get hip hip injected today. Allergies No Known Allergies [No Known Allergies*] Allergy (Verified 04/17/23 12:57) HPI OV-RT Tibial plateau ORIF-DOS 12/13/22 HPI Details 68-year-old male who presents in the office today 4 months status post right tibial plateau ORIF, which was performed on 12/13/[address] Walls. The patient reports his knee gives out intermittently. However, he states if is better overall. The patient would like to also have a right hip injection while in the office today. 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 No signs of infection. No tenderness to palpation medial or lateral joint lines. Full knee flexion and extension. Able to dorsiflex and plantarflex. NVI. Right hip: Tenderness to palpation of the greater trochanteric bursa. Office Procedures Joint Injection/Drain Joint Injection/Drain Primary Site: other (right hip greater troch bursa ) Prep: site was prepped using aseptic technique, ethochloride spray was applied and injection warnings given Injected: 80 mg of, DepoMedrol and with 8 mL of (2% plain lido ) Approach Used: other (lateral greater troch bursa ) Procedure: The patient tolerated the procedure well, but had some pain with the injection and there was some relief with the local anesthesia Coding 45670 - Glenohumeral/Tronchanteric Bursa/Intraarticular Procedure code (CPT) selection complete Results Reviewed Results Reviewed: 04/17/23 13:07 Lidocaine HCl 2 % MPF [Xylocaine 2 % MPF] 5 ml .ROUTE .STK-MED ONE methylPREDNISolone acetate [DEPO-MedroL] 80 mg .ROUTE .STK-MED ONE Assessment & Plan Assessment & Plan (1) Fracture of right tibial plateau: Comment: right tibial plateau ORIF 12/13/2022 NE Code(s): S82.141A - Displaced bicondylar fracture of right tibia, initial encounter for closed fracture Plan Mr. Live is a 68-year-old male who presents in the office today 4 months status post right tibial plateau ORIF, which was performed on 12/13/[address] Walls. The patient reports his knee gives out intermittently. However, he states if is better overall. The patient would like to also have a right hip injection while in the office today. The patient was offered a cortisone injection in the right hip with 80 mg of DepoMedrol. The patient was explained the risk, benefits, and alternatives to receiving this injection. After receiving consent for the injection, the patient had the procedure done while in office today. The patient tolerated the procedure well with no complications. 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 Follow up will be PRN, or sooner if needed. X-rays of the right knee which were obtained while in the office today and were reviewed by me, Luna Hidalgo PA-C, revealed orthopedic hardware intact with routine healing. Orders: Orders XR knee RT 3V 04/17/23 M25.569 - Pain in unspecified knee Patient Instructions: Scribed for Luna Hiadlgo PA-C by Kelsi Lopez electromedical service engineer, on 04/17/2023 at 12:46 pm, EST. Coding Level of Care Code Est Pt Level 3 (68331) Diagnoses Fracture of right tibial plateau S82.141A CPT Codes Coding - Joint 7: 32191 - Glenohumeral/Tronchanteric Bursa/Intraarticular ([id number])
== END 2023-04-17 13:32 | disposition home or self-care (01) ==
PROVIDERS: PCP Internal Medicine; Visit Provider Physician Assistant
DX: S82.141D Displaced bicondylar fracture of right tibia, subsequent encounter for closed fracture with routine healing (principal); M16.11 Unilateral primary osteoarthritis, right hip; M70.61 Trochanteric bursitis, right hip
CPT/HCPCS: 20610; 99213

== ENCOUNTER 2023-08-03 11:01 | Outpatient (AMB) | payer OTHER, MEDICARE, SELFPAY ==
--- NOTE | 2023-08-03 11:12 | MHC.OFFVIS ---
Intake Intake Visit Reasons: OV-RT Tibial plateau ORIF-DOS 12/13/22 Intake Note: Adán is a 67 year old male who presents today with his for his follow up visit for his s/p Right Tibial Plateau fx 12/13/22. States he is doing okay but felling some achenes and discomfort when getting out of his vehicle. Allergies No Known Allergies [No Known Allergies*] Allergy (Verified 08/03/23 11:17) HPI OV-RT Tibial plateau ORIF-DOS 12/13/22 HPI Details 68-year-old male who presents in the office today for a follow up of his right great trochanteric bursa pain. The patient was last seen in the office by me on 04/17/2023 where he received a cortisone injection in the right hip. He states he is doing okay but reports some achiness and discomfort when getting out of his car. The patient also expresses a complaint of occasional numbness and tingling from his lower back to the anterior aspect of the right thigh. [facility] Medical History Alcohol abuse Alcoholism Anemia Aspiration pneumonia [place] HTN (hypertension) Social History Household Members: Spouse Housing: House Do you presently have visiting nurse or other home services: No Alcohol intake: current Alcohol intake frequency: a few times a week Comment: Pt. 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 Full ROM in all planes. 4/5 stregth with resisted hip flexion, knee flexion and extension. NVI. Office Procedures Joint Injection/Drain Joint Injection/Drain Primary Site: other (right greater troch bursa ) Prep: site was prepped using aseptic technique, ethochloride spray was applied and injection warnings given Injected: 80 mg of, DepoMedrol, with 8 mL of (2% plain lido ) and other (right greater troch bursa ) Approach Used: other (lateral) Procedure: The patient tolerated the procedure well, but had some pain with the injection and there was some relief with the local anesthesia Coding 12904 - Glenohumeral/Tronchanteric Bursa/Intraarticular Procedure code (CPT) selection complete Assessment & Plan Assessment & Plan (1) Other bursitis, not elsewhere classified, right hip: Code(s): M71.551 - Other bursitis, not elsewhere classified, right hip Plan Mr. Live is a 68-year-old male who presents in the office today for a follow up of his right great trochanteric bursa pain. The patient was last seen in the office by me on 04/17/2023 where he received a cortisone injection in the right hip. He states he is doing okay but reports some achiness and discomfort when getting out of his car. The patient also expresses a complaint of occasional numbness and tingling from his lower back to the anterior aspect of the right thigh. The patient was offered a cortisone injection in the right hip with 80 mg of DepoMedrol. The patient was explained the risk, benefits, and alternatives to receiving this injection. After receiving consent for the injection, the patient had the procedure done while in office today. The patient tolerated the procedure well with no complications. In regards to the numbness and tingling stemming from his lower back a referral has been placed for the patient to see Physiatry. Follow up will be PRN, or sooner if needed. Patient Instructions: Scribed for Luna Hidalgo PA-C by Kelsi Lopez auditor medical claims, on 08/03/2023 at 11:11 am, EST. Coding Level of Care Code Est Pt Level 3 (98167) Diagnoses Other bursitis, not elsewhere classified, right hip M71.551 CPT Codes Coding - Joint 7: 49840 - Glenohumeral/Tronchanteric Bursa/Intraarticular ([id number])
== END 2023-08-03 11:55 | disposition home or self-care (01) ==
PROVIDERS: PCP Internal Medicine; Visit Provider Physician Assistant
DX: M71.551 Other bursitis, not elsewhere classified, right hip (principal)
CPT/HCPCS: 20610; 99213

== ENCOUNTER 2023-08-03 11:01 | Outpatient (REF) | payer OTHER, MEDICARE, MEDICAID, SELFPAY | END 2023-08-03 11:02 | disposition home or self-care (01) | LOC: HO.HOSX 11:01 | PROVIDERS: PCP Internal Medicine; Visit Provider Physician Assistant | DX: M71.551 Other bursitis, not elsewhere classified, right hip (principal); M25.551 Pain in right hip; Z87.81 Personal history of (healed) traumatic fracture; Z98.890 Other specified postprocedural states | CPT/HCPCS: 20610; J1040 ==

== ENCOUNTER 2023-09-07 09:53 | Outpatient (AMB) | payer OTHER, MEDICARE, SELFPAY ==
--- NOTE | 2023-09-07 10:06 | MHC.OFFVIS ---
Intake Vital Signs 09/07/23 10:13 Height 6 ft 1 in Weight 240 lb BMI 31.7 Intake Visit Reasons: new Prob- Lower right side back pain Intake Note: Adán 68 yr old male presents today for a new problem visit for his lower back pain. States his pain started about 5 yrs ago. States pain is mainly on his lower right side. Denies radiating pain down his leg, numbness or tingling. Pain increases from sit to stand and when he gets on and off his work truck. At times he has numbness on his right buttock. States last year his fell and injury his right leg/knee approx around November. States he has not had P.T or back injections. Allergies No Known Allergies [No Known Allergies*] Allergy (Verified 09/07/23 10:11) HPI HPI Comments History of Present Illness Details Medical records: Right trochanter IMN, DOS: 09/19/20 post-traumatic trochanteric bursitis of the right hip right ORIF right tibial plateau fracture, 12/13/22 DVT after trochanter surgery; not on anticoagulation anymore. Referred to orthopedics. Chronic back pain, getting worse. No past treatment for back pain, just OTC medications. 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 Non radicular to legs. Occasional numbness to thigh but thinks worse after hip/trochanter fracture. No numbness on feet/toes. No foot drop. No bladder/bowel changes. Denies claudication symptoms on legs. But would have back pain with prolonged walking. Sitting improves. [facility] Medical History Alcohol abuse Alcoholism Anemia Aspiration pneumonia Falls HTN (hypertension) Social History (Updated 09/07/23 @ 10:12 by Zuri Pond [facility]) Household Members: Spouse Housing: House Do you presently have visiting nurse or other home services: No Alcohol intake: current Alcohol intake frequency: a few times a week Comment: Pt. 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 Patient was appropriately conversant and oriented. Good historian. MSK: No specific abnormalities found on inspection of the spine and all extremities. Mild tenderness in right SI joint. Right GT nontender. Lumbar ROM was full. Straight-leg raising test negative. FABERE test positive right. Strength is 5/5 in all muscle groups tested. No increased tone noted. Neurological: Neurologic examination of the upper and lower extremities was nonfocal with intact sensation, muscle stretch reflexes and without focal motor deficits . Snyder?s negative bilaterally. Babinski was down going bilaterally. Clonus was negative. Gait is non-antalgic without loss of balance. Results Reviewed Results Reviewed: I independently reviewed the results of the following: lumbar xray shows at least grade 1 spondylolisthesis L4-5 I reviewed records from the following: ortho Assessment & Plan Assessment & Plan (1) Spondylolisthesis, lumbar region: Code(s): M43.16 - Spondylolisthesis, lumbar region (2) Spinal stenosis, lumbar region with neurogenic claudication: Code(s): M48.062 - Spinal stenosis, lumbar region with neurogenic claudication (3) History of falling: Code(s): Z91.81 - History of falling Plan 68-year-old, x-ray showing lumbar spondylolisthesis, history of falling and back pain. Exam today did not show any red flag or neurologic deficit. However we will send for further flexion and extension views to make sure there is no instability. Also, he has symptoms of spinal stenosis with claudication. He has undergone adequate conservative management including PT without improvement of condition. It would be reasonable to obtain further imaging such as MRI to rule out spinal stenosis. Assessment and plan discussed with patient, and patient was agreeable. All questions were answered thoroughly. Follow-up after MRI. Ann Acevedo MD, MARIAH Board Certified, [place] Board of Physical Medicine and Rehabilitation (ABPMR) Board Certified, [place] Board of Electrodiagnostic Medicine (ABEM) Orders: Orders MR lumbar spine wo con Today M43.16 - Spondylolisthesis, lumbar region, M48.061 - Spinal stenosis, lumbar region without neurogenic claudication, M48.062 - Spinal stenosis, lumbar region with neurogenic claudication, Z91.81 - History of falling Coding Level of Care Code New Pt Level 4 (63106) Diagnoses Spondylolisthesis, lumbar region M43.16 Spinal stenosis, lumbar region with neurogenic claudication M48.062 History of falling Z91.81
[2023-09-07 10:13] VITALS: BMI 31.7
== END 2023-09-07 11:17 | disposition home or self-care (01) ==
PROVIDERS: PCP Internal Medicine; Visit Provider Physical Medicine & Rehabilitation
DX: M43.16 Spondylolisthesis, lumbar region (principal); M48.062 Spinal stenosis, lumbar region with neurogenic claudication; Z91.81 History of falling
CPT/HCPCS: 99204

== ENCOUNTER 2023-09-07 12:03 | Outpatient (REF) | payer OTHER, MEDICARE, SELFPAY ==
--- NOTE | ~2023-09-07 | XR_ITS ---
EXAMINATION: XR LUMBOSACRAL SPINE WITH OBLIQUES CLINICAL INFORMATION: Back pain. COMPARISON: None available. TECHNIQUE: AP and lateral (neutral, flexion and extension) views of the lumbosacral spine are submitted, together with a spot view of the lumbosacral junction. FINDINGS: There is bony demineralization. There is multi-level degenerative change of the lower thoracic and lumbar spine, with degenerative disc disease most pronounced at T12-L1, L2-L3 and L5-S1. At L4-L5, a 4 mm anterolisthesis is seen. There is no acute fracture or spondylolisthesis. No significant instability is seen with flexion or extension. This multi-level thoracolumbar spondylosis and facet arthropathy. There are aortoiliac atherosclerotic calcifications. XR/XR lumbar spine 6V w bending IMPRESSION: 1. There is multi-level thoracolumbar degenerative disc disease, spondylosis and facet arthropathy. Degenerative disc disease is most pronounced at T12-L1, L2-L3 and L5-S1. 2. There is no instability noted with flexion or extension.
== END 2023-09-07 12:04 | disposition home or self-care (01) ==
LOC: HO.HOSX 12:03
PROVIDERS: Visit Provider Physical Medicine & Rehabilitation
DX: M43.16 Spondylolisthesis, lumbar region (principal); M48.062 Spinal stenosis, lumbar region with neurogenic claudication; Z91.81 History of falling
CPT/HCPCS: 72114

== ENCOUNTER 2023-10-04 15:55 | Outpatient (REF) | payer OTHER, MEDICARE, SELFPAY ==
--- NOTE | ~2023-10-04 | MR_ITS ---
EXAMINATION: MR LUMBAR SPINE WITHOUT CONTRAST CLINICAL INFORMATION: Spinal stenosis, low back pain, frequent mechanical 4 COMPARISON: None available. TECHNIQUE: MRI of the lumbar spine was obtained using routine sequences without contrast. FINDINGS: Mild posterior T11-T12 disc protrusion and marked bilateral neural foramina stenosis are present. The visualized lumbar vertebrae are intact with normal alignment. No focal bone lesion with abnormal signal can be seen. Evaluation of the intervertebral discs show: T12/L1: Intervertebral disc height is markedly decreased, with marked loss of T2 signal. Moderate posterior disc protrusion is seen. Bilateral T12/L1 neuroforamina are patent. Bilateral apophyseal joints are intact with normal alignment. L-1/L-2: Intervertebral disc height is markedly decreased, with marked loss of T2 signal. Mild posterior and bilateral foraminal disc protrusion is seen. Bilateral L1-L2 neuroforamina are mildly stenosed. Bilateral apophyseal joints are intact with normal alignment. L2/L3: Intervertebral disc height is normal, with moderate loss of T2 signal. Mild posterior and bilateral foraminal disc protrusion is seen. Bilateral L2-L3 neuroforamina are markedly stenosed. Bilateral apophyseal joints are intact with normal alignment. L3/L4: Intervertebral disc height is normal, with moderate loss of T2 signal. Moderate posterior and bilateral foraminal disc protrusion is seen. Bilateral L3-L4 neuroforamina are markedly stenosed. There is moderate spinal stenosis with additional impingement by hypertrophic ligamentum flavum. Bilateral apophyseal joints are intact with normal alignment. Bilateral apophyseal joints show loss of joint space, sclerosis, facet hypertrophy and osteophytosis. L4/L5: Intervertebral disc height is normal, with moderate loss of T2 signal. Mild posterior and bilateral foraminal disc protrusion is seen. There are severe right and moderate left L4-L5 neuroforamina stenosis. There is marked spinal stenosis with additional impingement by hypertrophic ligamentum flavum. Bilateral apophyseal joints are intact with normal alignment. Bilateral apophyseal joints show loss of joint space, sclerosis, facet hypertrophy and osteophytosis. L5/S1: Intervertebral disc height is markedly decreased, with marked loss of T2 signal. Mild posterior and bilateral foraminal disc protrusion is seen. Bilateral L5-S1 neuroforamina are markedly stenosed, most severe on the right side. Bilateral apophyseal joints are intact with normal alignment. Bilateral apophyseal joints show loss of joint space, sclerosis, facet hypertrophy and osteophytosis. Conus medullaris is seen normally at L1 level. Bilateral paraspinal muscles show marked atrophy with fat replacement. MR/MR lumbar spine wo con IMPRESSION: 1. Multilevel advanced lumbar spondylosis and degenerative disc disease, most severe at L5-S1. 2. Multilevel posterior and bilateral foraminal disc protrusions causing neural foramina stenosis as described above. 3. Moderate L3-L4 and marked L4-L5 level spinal stenosis is seen due to additional impingement by hypertrophic ligamentum flavum. 4. At T11-T12, there are posterior disc protrusion and marked bilateral neural foramina stenosis.
== END 2023-10-04 15:56 | disposition home or self-care (01) ==
LOC: HO.MRI 15:55
PROVIDERS: PCP Internal Medicine; Visit Provider Physical Medicine & Rehabilitation
DX: M48.062 Spinal stenosis, lumbar region with neurogenic claudication (principal); M43.16 Spondylolisthesis, lumbar region; Z91.81 History of falling
CPT/HCPCS: 72148

== ENCOUNTER 2023-10-19 11:16 | Outpatient (AMB) | payer OTHER, MEDICARE, SELFPAY ==
--- NOTE | 2023-10-19 11:17 | A.OFFVIS_ITS ---
Intake Vital Signs 10/19/23 11:19 Height 6 ft 1 in Weight 240 lb BMI 31.7 Intake Visit Reasons: TEL-Lumbar Spine MRI review Intake Note: Adán a 68 year old male scheduled for a telephone visit to discuss MRI review of spine. Allergies No Known Allergies [No Known Allergies*] Allergy (Verified 10/19/23 11:19) HPI HPI Comments History of Present Illness Details Medical records: Right trochanter IMN, DOS: 09/19/20 post-traumatic trochanteric bursitis of the right hip right ORIF right tibial plateau fracture, 12/13/22 DVT after trochanter surgery; not on anticoagulation anymore. Referred to orthopedics. Chronic back pain, getting worse. 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 Non radicular to legs. Occasional numbness to thigh but thinks worse after hip/trochanter fracture. No numbness on feet/toes. No foot drop. No bladder/bowel changes. Denies claudication symptoms on legs. But would have back pain with prolonged walking. Sitting improves. MRI has been done but I could not reach patient over the phone, constantly no answer. Telehealth scheduled for today to discuss MRI. MRI shows multilevel spondylosis with disc bulge/herniation most notable at L4-5 and L5-S1 causing moderate spinal stenosis. He denies any further falls. Denies any change in his symptoms. Denies any bladder or bowel changes. [facility] Medical History Alcohol abuse Alcoholism Anemia Aspiration pneumonia Falls HTN (hypertension) Social History Household Members: Spouse Housing: House Do you presently have visiting nurse or other home services: No Alcohol intake: current Alcohol intake frequency: a few times a week Comment: Pt. 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 TECHNIQUE: MRI of the lumbar spine was obtained using routine sequences without contrast. FINDINGS: Mild posterior T11-T12 disc protrusion and marked bilateral neural foramina stenosis are present. The visualized lumbar vertebrae are intact with normal alignment. No focal bone lesion with abnormal signal can be seen. Evaluation of the intervertebral discs show: T12/L1: Intervertebral disc height is markedly decreased, with marked loss of T2 signal. Moderate posterior disc protrusion is seen. Bilateral T12/L1 neuroforamina are patent. Bilateral apophyseal joints are intact with normal alignment. L-1/L-2: Intervertebral disc height is markedly decreased, with marked loss of T2 signal. Mild posterior and bilateral foraminal disc protrusion is seen. Bilateral L1-L2 neuroforamina are mildly stenosed. Bilateral apophyseal joints are intact with normal alignment. L2/L3: Intervertebral disc height is normal, with moderate loss of T2 signal. Mild posterior and bilateral foraminal disc protrusion is seen. Bilateral L2-L3 neuroforamina are markedly stenosed. Bilateral apophyseal joints are intact with normal alignment. L3/L4: Intervertebral disc height is normal, with moderate loss of T2 signal. Moderate posterior and bilateral foraminal disc protrusion is seen. Bilateral L3-L4 neuroforamina are markedly stenosed. There is moderate spinal stenosis with additional impingement by hypertrophic ligamentum flavum. Bilateral apophyseal joints are intact with normal alignment. Bilateral apophyseal joints show loss of joint space, sclerosis, facet hypertrophy and osteophytosis. L4/L5: Intervertebral disc height is normal, with moderate loss of T2 signal. Mild posterior and bilateral foraminal disc protrusion is seen. There are severe right and moderate left L4-L5 neuroforamina stenosis. There is marked spinal stenosis with additional impingement by hypertrophic ligamentum flavum. Bilateral apophyseal joints are intact with normal alignment. Bilateral apophyseal joints show loss of joint space, sclerosis, facet hypertrophy and osteophytosis. L5/S1: Intervertebral disc height is markedly decreased, with marked loss of T2 signal. Mild posterior and bilateral foraminal disc protrusion is seen. Bilateral L5-S1 neuroforamina are markedly stenosed, most severe on the right side. Bilateral apophyseal joints are intact with normal alignment. Bilateral apophyseal joints show loss of joint space, sclerosis, facet hypertrophy and osteophytosis. Conus medullaris is seen normally at L1 level. Bilateral paraspinal muscles show marked atrophy with fat replacement. MR/MR lumbar spine wo con IMPRESSION: 1. Multilevel advanced lumbar spondylosis and degenerative disc disease, most severe at L5-S1. 2. Multilevel posterior and bilateral foraminal disc protrusions causing neural foramina stenosis as described above. 3. Moderate L3-L4 and marked L4-L5 level spinal stenosis is seen due to additional impingement by hypertrophic ligamentum flavum. 4. At T11-T12, there are posterior disc protrusion and marked bilateral neural foramina stenosis. Assessment & Plan Assessment & Plan (1) Spondylolisthesis, lumbar region: Code(s): M43.16 - Spondylolisthesis, lumbar region (2) Spinal stenosis, lumbar region with neurogenic claudication: Code(s): M48.062 - Spinal stenosis, lumbar region with neurogenic claudication (3) History of falling: Code(s): Z91.81 - History of falling Plan 68-year-old, x-ray showing lumbar spondylolisthesis, history of falling and back pain. He had complained of symptoms of spinal stenosis with claudication. Discussed MRI with patient. Offered referral to neuro spine although low suspicion that they would operate on him. Offered referral to pain management for interventional/injections. Patient opted for the 2nd. Referral to pain management placed. Ann Acevedo MD, MARIAH Board Certified, [place] Board of Physical Medicine and Rehabilitation (ABPMR) Board Certified, [place] Board of Electrodiagnostic Medicine (ABEM) Telehealth Telehealth Location of provider rendering services: practice address Location of patient: other Patient Identification confirmed using: Name, : Yes Telehealth method: voice only Patient verbally consented to treatment: Yes Patient verbally consented to billing insurance company: Yes Patient informed of any privacy concerns related to visit: Yes Coding Level of Care Code Tele Est Pt Level 3 (91328) Diagnoses Spondylolisthesis, lumbar region M43.16 Spinal stenosis, lumbar region with neurogenic claudication M48.062 History of falling Z91.81
[2023-10-19 11:19] VITALS: BMI 31.7
== END 2023-10-19 11:24 | disposition home or self-care (01) ==
LOC: HO.HOS 11:16
PROVIDERS: PCP Internal Medicine; Visit Provider Physical Medicine & Rehabilitation
DX: M43.16 Spondylolisthesis, lumbar region (principal); M48.062 Spinal stenosis, lumbar region with neurogenic claudication; Z91.81 History of falling
CPT/HCPCS: 99441

== ENCOUNTER → 2023-10-19 11:16 | Outpatient (BNVA) | payer OTHER, MEDICARE, SELFPAY | PROVIDERS: PCP Internal Medicine; Visit Provider Physical Medicine & Rehabilitation ==

== ENCOUNTER 2023-11-06 14:31 | Emergency (ER) | payer OTHER, MEDICARE, SELFPAY ==
--- NOTE | ~2023-11-06 | US_ITS ---
EXAMINATION: US VENOUS ULTRASOUND WITH DOPPLER LOWER EXTREMITY, RIGHT CLINICAL INFORMATION: Pain, swelling. COMPARISON: None available. TECHNIQUE: Ultrasound of the deep veins is performed from the hip to the calf with compression sonography and color and pulse Doppler assessment. Spectral analysis with color-flow imaging is performed. FINDINGS: Nonocclusive thrombosis of the popliteal vein. The visualized common femoral vein, superficial femoral vein, profunda femoral vein, and the trifurcation region shows no evidence of deep venous thrombosis. There is subcutaneous swelling. There is no significant popliteal fossa cyst. There is a prominent but nonaggressive appearing right inguinal lymph node measuring 2.7 x 0.6 x 1.7 cm with preserved fatty josé and normal appearing cortex, most likely reactive. US/US venous duplex LE RT IMPRESSION: Nonocclusive deep venous thrombosis of the right popliteal vein. This critical result was discussed with Dr. Black at 11/06/2023 6:03 PM and it was ascertained that the content and urgency of the report was understood at the time of direct communication.
[2023-11-06 15:56] VITALS: BP 153/80; PULSE 62; RESP 16; TEMP 36.4; O2SAT 95; BMI 33.0
--- NOTE | 2023-11-06 15:58 | ED.GENADULT ---
HPI - General Adult General Chief complaint: Extremity Injury, Lower Stated complaint: r leg swelling Time Seen by Provider: 11/06/23 18:39 Source: patient and family (patient's ) Mode of arrival: ambulatory Limitations: no limitations History of Present Illness HPI narrative: Patient is a 68 year old assigned male at with a history of a right knee surgery 11 months ago presenting to the emergency department today with right calf pain. Patient states that he was sent here by the orthopedic office for right lower leg pain and swelling. Patient denies any dizziness, lightheadedness, abdominal pain, nausea, vomiting, fever, chills, blurry vision, double vision, loss of vision, chest pain, difficulty breathing, shortness of breath, back pain, night sweats, pain with urination, increased urinary frequency, increased urinary urgency, blood in his urine or stool, syncope or a near syncopal episode, recent trauma or falls, bowel incontinence, bladder incontinence, bowel retention, bladder retention, or any other complaints at this time. Onset (ago): day(s) Location: right and lower extremity Radiation: non-radiation Severity: mild Severity scale (1-10): 3 Quality: aching and dull Pain Consistency: intermittent Relieving factors: none Exacerbating factors: none Associated symptoms: denies other symptoms Treatments prior to arrival: none Related Data Home Medications Medication Instructions Recorded Confirmed amlodipine 5 mg tablet 5 mg PO DAILY 09/18/20 12/13/22 lisinopril 20 mg tablet 20 mg PO BID 09/18/20 12/13/22 omega 7-rtv-dzi-fish oil 1,000 mg 1 cap PO DAILY 09/18/20 12/13/22 (120 mg-180 mg) capsule (Fish Oil) hydrochlorothiazide 12.5 mg tablet 12.5 mg PO DAILY 06/23/22 12/13/22 Previous Rx's Medication Instructions Recorded acetaminophen 325 mg tablet 650 mg (2 x 325 mg) PO Q6H PRN 12/14/22 Pain, Mild (Pain Scale 1-3) 30 days #240 tabs celecoxib 200 mg capsule 200 mg PO BID 30 days #60 caps 12/14/22 docusate sodium 100 mg capsule 100 mg PO BID 14 days #28 caps 12/14/22 apixaban 5 mg (74 tabs) tablets in 5 mg PO BID #74 ea 11/06/23 a dose pack (Eliquis DVT-PE Treat 30D Start) apixaban 5 mg (74 tabs) tablets in 5 mg PO BID #74 ea 11/06/23 a dose pack (Eliquis DVT-PE Treat 30D Start) Allergies Allergy/AdvReac Type Severity Reaction Status Date / Time No Known Allergies Allergy Verified 11/06/23 15:56 [No Known Allergies*] Review of Systems Constitutional: Constitutional: Reports no additional constitutional complaints, Denies chills, Denies fever(s) and Denies night sweats Eyes: Eyes: Reports no additional eye complaints, Denies blurry vision, Denies change in vision, Denies diplopia, Denies eye discharge, Denies loss of vision and Denies eye pain ENT: Denies dizziness Cardiovascular: Cardiovascular: Reports no additional cardiovascular complaints, Denies chest pain, Denies lightheadedness, Denies Loss of Consciousness and Denies dyspnea Respiratory: Respiratory: Reports no additional respiratory complaints and Denies dyspnea Gastrointestinal: Gastrointestinal: Reports no additional gastrointestinal complaints, Denies abdominal pain, Denies melena, Denies hematochezia, Denies change in bowel habits and Denies change in stool character Genitourinary: Genitourinary: Reports no additional male genitourinary complaints, Denies hematuria, Denies oliguria, Denies difficulty urinating, Denies dysuria, Denies urinary frequency, Denies urinary hesitancy, Denies urinary incontinence and Denies urinary urgency Musculoskeletal: Musculoskeletal: Reports no additional musculoskeletal complaints, Denies numbness and Denies tingling Comments: right lower leg pain Neurologic: Denies dizziness, Denies loss of vision, Denies numbness and Denies tingling Psychiatric: Psychiatric: Reports no additional psychiatric complaints Endocrine: Endocrine: Reports no additional endocrine complaints Hematologic/Lymphatic: Hematologic/Lymphatic: Reports no additional hematologic/lymphatic complaints Allergic/Immunologic: Allergic/Immunologic: Reports no additional allergic/immunologic complaints PMFSH Past Medical History Attestation statement: The following information was validated with the patient. (patient's validated all information) Source: old records reviewed, obtained from family (patient's provided additional history and confirmed the history provided by the patient) and nursing notes reviewed Medical History Alcohol abuse Anemia Aspiration pneumonia Falls Alcoholism HTN (hypertension) Social History Social History Household Members: Spouse Housing: House Do you presently have visiting nurse or other home services: No Alcohol intake: current Alcohol intake frequency: a few times a week Comment: Pt. 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 Physical Exam ED Vital Signs: Vital Signs - 24 hr 11/06/23 15:56 11/06/23 18:54 Temperature 97.5 F 97.8 F Pulse Rate 62 68 Respiratory Rate 16 18 Blood Pressure 153/80 H 176/96 H Pulse Oximetry 95 94 Oxygen Delivery Method Room Air Room Air BMI result Body Mass Index 33.0 Const General: cooperative, no acute distress, alert and awake Nutritional Appearance: well nourished Orientation/consciousness: patient oriented x3 Limitations: no limitations HENMT Head: Yes normal to inspection and Yes atraumatic Ears: hearing grossly normal bilaterally and external ears normal General nose exam: Normal external nose present, no nasal discharge noted and no epistaxis Face and sinus: Yes normal facial exam, No abrasion and No laceration Mouth: Normal oral and palatal mucosa present, no drooling and no muffled voice Eyes General: appearance normal, both eyes and all related structures Periorbital: periorbital findings normal Eyelids: Yes eyelids normal Conjunctivae: conjunctivae normal Pupils: Equal, round and reactive pupils present EOM: EOMs intact bilaterally Neck Neck: Yes normal visual inspection, Yes full ROM and Yes no lymphadenopathy Chest Chest palpation & inspection: normal inspection of the chest Resp Effort & Inspection: normal respiratory effort and able to speak in complete sentences GI Inspection: Yes normal to inspection Neuro General: patient oriented x3 and moves all extremities Cranial nerves: Yes Equal, round and reactive pupils present Cognition (Neuro): normal cognition Motor exam (neuro): 5/5 motor strength present throughout Sensory Exam: Normal double simultaneous stimulation for sensation Coordination: [id number] test normal Extrem Other: RLE swelling General: Yes full ROM and Yes capillary refill normal Psych Appearance: grossly normal Mental Status: mental status grossly normal Affect: normal affect Attitude: cooperative Thought process: Normal thought process present Thought content: Normal thought content present Insight: Good insight present (Psych) Course Course Course Narrative: RME performed by Debby Black PA-C. Patient is a 68 year old assigned male at presenting to the emergency department with right lower leg pain and swelling. Patient was sent by doctor for concern of DVT. Detailed physical exam and review of systems are deferred to the concrete engineering technician. Imaging ordered. Patient placed back in the waiting room pending room availability and results. Medical Decision Making Medical Decision Making [facility] Narrative: Patient is a 68 year old assigned male at with a history of right knee surgery 11 months ago presenting to the emergency department today with right lower extremity swelling and pain. Patient's physical exam was as noted in the physical exam portion of this note. Patient's blood work was unremarkable. Patient's right lower extremity US showed a DVT. I explained my physical exam findings as well as all test results to the patient and the patient's . I answered all questions asked by the patient and the patient's . I stressed the importance of the patient taking his medication as prescribed. I stressed the importance of the patient following up with his primary care provider. I stressed the importance of the patient returning to the emergency department immediately if his symptoms were to worsen or if he were to develop any dizziness, shortness of breath, difficulty breathing, chest pain, blurry vision, loss of vision, nausea, vomiting, abdominal pain, fever, chills, back pain, or any other complaints. Patient and the patient's verbalized agreement and understanding with this treatment plan and discharge. Differential Diagnosis Differential Diagnoses: The differential diagnosis associated with the presentation includes DVT Right lower leg swelling Right lower leg pain Admission/Observation Consideration of admission/observation: Escalation of care including admission/observation considered Patient would have been admitted to the hospital had his work up had any findings where hospital admission was appropriate and his clinical presentation warranted hospital admission. Lab Data [facility] Lab Attestation statement: I reviewed the patient's lab results. My interpretation of these results are in the MDM Rationale portion of this note. 11/06/23 18:09 11/06/23 18:09 Labs: Lab Results 11/06/23 Range/Units 18:09 WBC 7.8 (4.8-10.8) X10*3/uL RBC 4.63 (4.60-5.80) X10*6/uL Hgb 17.0 D (14.0-18.0) g/dl Hct 47.9 D (42.0-52.0) % MCV 103.5 H (80.0-98.0) fL MCH 36.7 H (27.0-33.0) pg MCHC 35.5 (31.0-36.0) g/dl RDW 11.6 (11.0-16.0) % Plt Count 179 D (160-400) X10*3/uL MPV 9.8 (9.4-12.4) fL Immature Gran % (Auto) 0.1 (0.0-0.4) % Neut % (Auto) 49.0 (45-73) % Lymph % (Auto) 36.7 (20-40) % [place] % (Auto) 11.0 (2-11) % Eos % (Auto) 2.3 (0-4) % Baso % (Auto) 0.9 (0-2) % Lymph # (Auto) 2.9 (1.2-4.9) X10*3/uL [place] # (Auto) 0.9 (0.1-1.2) X10*3/uL Eos # (Auto) 0.2 (0.0-0.4) X10*3/uL Baso # (Auto) 0.1 (0.0-0.2) X10*3/uL Abs Immat Gran (auto) 0.01 (0.00-0.03) X10*3/uL Absolute Neuts (auto) 3.8 (2.0-8.3) x10*3/uL Absolute Nucleated RBC 0.000 (0.0-0.012) X10*3/uL Nucleated RBC % (auto) 0.0 (0.0-0.2) /100WBC PT 12.1 (11.1-13.3) SEC INR 1.0 (0.9-1.1) APTT 30.3 (26.0-36.8) SEC Sodium 142 (135-145) mmol/L Potassium 3.3 (3.3-5.1) mmol/L Chloride 104 (96-108) mmol/L Carbon Dioxide 25 (22-29) mmol/L Anion Gap 16 (12-20) BUN 15 (9-16) mg/dL Creatinine 0.84 (0.5-1.4) mg/dL Estim Creat Clear Calc 114.1 Estimated GFR > 60 Random Glucose 84 (60-115) mg/dL Calcium 9.1 (8.4-10.2) mg/dL Total Bilirubin 0.8 (0.0-1.0) mg/dL AST 42 H (5-37) U/L ALT 37 (0-40) U/L Alkaline Phosphatase 64 (39-117) U/L Total Protein 7.1 (6.5-8.0) g/dL Albumin 4.1 (3.5-5.0) g/dL Independent Interpretation I performed an independent interpretation of an: Ultrasound Interpretation: My interpretation is in agreement with the radiologist's impression of this imaging study. EXAMINATION: US VENOUS ULTRASOUND WITH DOPPLER LOWER EXTREMITY, RIGHT CLINICAL INFORMATION: Pain, swelling. COMPARISON: None available. TECHNIQUE: Ultrasound of the deep veins is performed from the hip to the calf with compression sonography and color and pulse Doppler assessment. Spectral analysis with color-flow imaging is performed. FINDINGS: Nonocclusive thrombosis of the popliteal vein. The visualized common femoral vein, superficial femoral vein, profunda femoral vein, and the trifurcation region shows no evidence of deep venous thrombosis. There is subcutaneous swelling. There is no significant popliteal fossa cyst. There is a prominent but nonaggressive appearing right inguinal lymph node measuring 2.7 x 0.6 x 1.7 cm with preserved fatty josé and normal appearing cortex, most likely reactive. US/US venous duplex LE RT IMPRESSION: Nonocclusive deep venous thrombosis of the right popliteal vein. This critical result was discussed with Dr. Black at 11/06/2023 6:03 PM and it was ascertained that the content and urgency of the report was understood at the time of direct communication. Dictated By: Lisa Cobb Signed By: Electronically signed by Lisa Cobb 11/06/23 1810 Radiology Impression Discussion of test interpretation with radiology: I have reviewed the radiologist's reading. Independent Historian Clinical information obtained from an independent historian. History obtained from or confirmed by: Spouse (patient's provided additional history and confirmed the history provided by the patient) Prescription Management I considered prescription management with: Other (patient prescribed Eliquis) Critical Care Time Critical Care Time Critical Care Time: Yes Total Critical Care Time: 35 Attestation: I spent 35 minutes of Critical Care Time with this patient. This does not include time spent on separately reported billable procedures. Discharge Plan Discharge Clinical Impression: DVT (deep venous thrombosis) Patient Disposition: Home, Self-Care Instructions: Deep Vein Thrombosis (ED), Blood Thinners (ED) Additional Instructions: Follow up with your primary care provider. Return to the emergency department immediately if your symptoms worsen or if you develop any dizziness, shortness of breath, difficulty breathing, chest pain, blurry vision, loss of vision, nausea, vomiting, abdominal pain, fever, chills, back pain, or any other complaints. Prescriptions: New Eliquis DVT-PE Treat 30D Start 5 mg (74 tabs) tablets,dose pack 5 mg PO BID Qty: 74 0RF Eliquis DVT-PE Treat 30D Start 5 mg (74 tabs) tablets,dose pack 5 mg PO BID Qty: 74 0RF Rx Instructions: 2 tablets twice a day for 7 days then 1 tablet twice a day No Action lisinopril 20 mg Tablet 20 mg PO BID amlodipine 5 mg Tablet 5 mg PO DAILY omega 7-vxe-ovi-fish oil [Fish Oil] 1,000 mg (120 mg-180 mg) Capsule 1 cap PO DAILY acetaminophen 325 mg Tablet 650 mg PO Q6H PRN (Reason: Pain, Mild (Pain Scale 1-3)) 30 Days Qty: 240 0RF celecoxib 200 mg Capsule 200 mg PO BID 30 Days Qty: 60 0RF docusate sodium 100 mg Capsule 100 mg PO BID 14 Days Qty: 28 0RF hydrochlorothiazide 12.5 mg tablet 12.5 mg PO DAILY Referrals: Xu Christianson MD [Primary Care Provider] - Interventions: ED Discharge Assessment Last Done: 11/06/23 18:54 Discharge Date/Time: 11/06/23 18:55 Print Language: Pashto
[2023-11-06 18:14] LABS: MANUAL DIFF FLAG NO
[2023-11-06 18:15] LABS: Basophils Absolute Auto 0.1 X10*3/uL (0.0-0.2); Basophils Percent Auto 0.9 % (0-2); Eosinophils Absolute Auto 0.2 X10*3/uL (0.0-0.4); Eosinophils Percent Auto 2.3 % (0-4); Hematocrit 47.9 % (42.0-52.0); Imm Gran Abs Auto 0.01 X10*3/uL (0.00-0.03); Imm Gran Pct Auto 0.1 % (0.0-0.4); Lymphocytes Absolute Auto 2.9 X10*3/uL (1.2-4.9); Lymphocytes Percent Auto 36.7 % (20-40); Mean Corpuscular HGB Conc 35.5 g/dl (31.0-36.0); Mean Corpuscular Hemoglobin 36.7 pg (27.0-33.0); Mean Corpuscular Volume 103.5 fL (80.0-98.0); Mean Platelet Volume 9.8 fL (9.4-12.4); Monocytes Absolute Auto 0.9 X10*3/uL (0.1-1.2); Neutrophils Absolute Auto 3.8 x10*3/uL (2.0-8.3); Platelet Count 179 X10*3/uL (160-400); Red Blood Count 4.63 X10*6/uL (4.60-5.80); Red Cell Distribution Width 11.6 % (11.0-16.0); White Blood Count 7.8 X10*3/uL (4.8-10.8)
[2023-11-06 18:23] LABS: Prothrombin Time 12.1 SEC (11.1-13.3)
[2023-11-06 18:25] LABS: Partial Thromboplastin Time 30.3 SEC (26.0-36.8)
[2023-11-06 18:29] LABS: Alanine Aminotransferase 37 U/L (0-40); Albumin Level 4.1 g/dL (3.5-5.0); Alkaline Phosphatase 64 U/L (39-117); Anion Gap 16 (12-20); Aspartate Amino Transferase 42 U/L (5-37); Bilirubin Total 0.8 mg/dL (0.0-1.0); Blood Urea Nitrogen 15 mg/dL (9-16); Calcium 9.1 mg/dL (8.4-10.2); Carbon Dioxide 25 mmol/L (22-29); Chloride 104 mmol/L (96-108); Creatinine Clr Calc Pharmacy 114.1; Estimated Glomerular Filt Rate > 60; Glucose Random 84 mg/dL (60-115); Potassium 3.3 mmol/L (3.3-5.1); Sodium 142 mmol/L (135-145); Total Protein 7.1 g/dL (6.5-8.0)
[2023-11-06 18:54] VITALS: BP 176/96; PULSE 68; RESP 18; TEMP 36.6; O2SAT 94
== END 2023-11-06 18:55 | disposition home or self-care (01) ==
PROVIDERS: Physician Assistant Medical; Emergency Provider Internal Medicine; PCP Internal Medicine
DX: I82.431 Acute embolism and thrombosis of right popliteal vein (principal); I10 Essential (primary) hypertension
CPT/HCPCS: 36415; 80053; 85025; 85610; 85730; 93971; 99282; 99284

== ENCOUNTER 2023-11-17 08:03 | Outpatient (REF) | payer OTHER, MEDICARE, SELFPAY ==
[2023-11-17 11:05] LABS: MANUAL DIFF FLAG NO
[2023-11-17 11:09] LABS: Basophils Absolute Auto 0.1 X10*3/uL (0.0-0.2); Basophils Percent Auto 0.6 % (0-2); Eosinophils Absolute Auto 0.2 X10*3/uL (0.0-0.4); Eosinophils Percent Auto 2.2 % (0-4); Hematocrit 46.1 % (42.0-52.0); Hemoglobin 16.5 g/dl (14.0-18.0); Imm Gran Abs Auto 0.01 X10*3/uL (0.00-0.03); Imm Gran Pct Auto 0.1 % (0.0-0.4); Lymphocytes Percent Auto 35.8 % (20-40); Mean Corpuscular HGB Conc 35.8 g/dl (31.0-36.0); Mean Corpuscular Hemoglobin 37.2 pg (27.0-33.0); Mean Corpuscular Volume 104.1 fL (80.0-98.0); Mean Platelet Volume 10.4 fL (9.4-12.4); Monocytes Absolute Auto 0.9 X10*3/uL (0.1-1.2); Neutrophils Absolute Auto 4.2 x10*3/uL (2.0-8.3); Neutrophils Percent Auto 50.3 % (45-73); Platelet Count 205 X10*3/uL (160-400); Red Blood Count 4.43 X10*6/uL (4.60-5.80); Red Cell Distribution Width 10.8 % (11.0-16.0); White Blood Count 8.3 X10*3/uL (4.8-10.8)
[2023-11-17 12:05] LABS: Alanine Aminotransferase 43 U/L (0-40); Alkaline Phosphatase 60 U/L (39-117); Anion Gap 14 (12-20); Aspartate Amino Transferase 53 U/L (5-37); Bilirubin Total 0.6 mg/dL (0.0-1.0); Blood Urea Nitrogen 12 mg/dL (9-16); Calcium 8.9 mg/dL (8.4-10.2); Carbon Dioxide 30 mmol/L (22-29); Chloride 99 mmol/L (96-108); Estimated Glomerular Filt Rate > 60; Glucose Random 106 mg/dL (60-115); Potassium 3.9 mmol/L (3.3-5.1); Sodium 139 mmol/L (135-145); Total Protein 6.9 g/dL (6.5-8.0)
== END 2023-11-17 08:04 | disposition home or self-care (01) ==
LOC: HO.10HDL 08:03
PROVIDERS: Visit Provider Internal Medicine
DX: I10 Essential (primary) hypertension (principal); R79.89 Other specified abnormal findings of blood chemistry
CPT/HCPCS: 36415; 80053; 85025

== ENCOUNTER → 2023-12-08 07:53 | Outpatient (REF) | payer OTHER, MEDICARE, SELFPAY ==
--- NOTE | 2023-12-08 07:55 | CA_ITS ---
Transthoracic Echocardiogram Patient (Last, First, Middle): Adán Live S Gender: Male Date of : 1955 Age: 68 Procedure Date: 12/08/2023 Procedure Type: Transthoracic Echocardiogram Location: OP Height: 185.42 cm Weight: 113.4 kg BSA: 2.37 m2 Heart Rate: 69 bpm BP: 130 / 85 mmHg Rn Nursery: [facility] Referring MD: Xu Christianson MD Symptoms: CA MURMUR R01.1 Study Quality: Adequate w/Contrast ECG Rhythm: Sinus Conclusions: - The left ventricular systolic function is normal. The calculated ejection fraction is 68% by biplane method. - There is severe calcification of the aortic valve. - There is mild mitral annular calcification. - There is mild dilatation of the ascending aorta measuring 4.20 cm. Findings Procedure Information Contrast agent, definity, is being given per protocol without apparent complications. Left Ventricle Normal left ventricular cavity size. There is moderately increased left ventricular wall thickness. The left ventricular systolic function is normal. The calculated ejection fraction is 68% by biplane method. There is no evidence of regional wall motion abnormalities. Evidence suggests grade I (mild) diastolic dysfunction. Right Ventricle Normal right ventricular cavity size and systolic function. Atria The left atrium is mildly dilated. The right atrium is normal in size. Aortic Valve There is severe calcification of the aortic valve. There is no aortic valve stenosis. There is no aortic valve regurgitation. Mitral Valve There is mild mitral annular calcification. There is no mitral valve regurgitation. There is no mitral valve stenosis. Pulmonic Valve The pulmonic valve is likely normal. Tricuspid Valve There is trace tricuspid valve regurgitation. There is no evidence of pulmonary hypertension. Great Vessels There is mild dilatation of the ascending aorta measuring 4.20 cm. Venous The inferior vena cava is normal in size and collapses greater than 50% with inspiration. Pericardium/Pleural There is no evidence of pericardial effusion. Prior Study Comparison No prior study available for comparison. Measurements 2D Linear Measurements IVSd: 1.47 0.6-0.9/0.6-1.0 cm LVIDd: 4.66 3.9-5.3/4.2-5.9 cm LVIDd Index: 1.97 2.4-3.2/2.2-3.1 cm/m2 LVIDs: 3.05 2.0-3.6 cm LVPWd: 1.23 0.7-1.1 cm LA Diam: 4.40 2.7-3.8/3.0-4.0 cm LAIDs Index: 1.86 1.5-2.3 cm/m2 LV Mass: 309.39 67-162/88-224 g LV Mass Index: 130.55 43-95/49-115 g/m2 LVOT Diam: 2.30 3.0+(-)1.3 cm 2D Systolic Function EF 4C: 60.60 >55% EF 2C: 72.70 >55% EF BiP: 68.10 >55% Mitral Valve MV Pk E: 0.90 MV PK A: 0.83 MV Decel Time: 226.00 E/A: 1.10 E'Lateral: 7.40 E'Medial: 7.29 E/E' Med: 12.30 E/E' Lat: 12.20 PHT: 66.00 MVA PHT: 3.33 Decel [place]: 3.98 Aortic Valve AoV Pk Harjit: 2.36 AoV Mn Harjit: 1.78 AoV VTI: 0.51 AoV Pk Grad: 22.00 Aov Mn Grad: 14.00 BINDU Cont.VTI: 2.16 LVOT LVOT Pk Harjit: 1.13 LVOT Mn Harjit: 0.88 LVOT VTI: 0.26 LVOT Pk Grad: 5.00 LVOT Mn Grad: 3.00 LVOT Diam: 2.30 LVOT Area: 4.15 Diastolic Function MV Pk E: 0.90 MV Pk A: 0.83 E/A: 1.10 E'Medial: 7.29 E/E' Med: 12.30 E' Laterial: 7.40 E/E' Lat: 12.20 Right Ventricle TAPSE (mm): 26.40 TVS' Harjit: 16.30 Tricuspid Valve TR Pk Harjit: 1.45 TR Pk Grad: 8.00 RA Press: 3.00 RVSP: 11.00 Great Vessels Aorta Sinus of Valsalva: 3.20 2.0-3.5 cm Ao Asc: 4.20 2.1-3.4 cm Pulmonary Valve PV Pk Harjit: 0.91 Peak PV Grad: 3.00 Updated in Other Vendor System with Status of Final Remy Rivera MD electronically signed on 12/09/2023 2:34:07 PM with status of Final
== END ==
LOC: HO.CARD 07:53
PROVIDERS: PCP Internal Medicine; Visit Provider Internal Medicine
DX: R01.1 Cardiac murmur, unspecified (principal)
CPT/HCPCS: 93306; Q9957

== ENCOUNTER → 2023-12-08 07:55 | Outpatient (BNV) | payer OTHER, MEDICARE, SELFPAY | PROVIDERS: PCP Internal Medicine; Visit Provider Internal Medicine | DX: I35.8 Other nonrheumatic aortic valve disorders (principal); I34.81 Nonrheumatic mitral (valve) annulus calcification | CPT/HCPCS: 93306 ==

== ENCOUNTER 2023-12-11 14:25 | Outpatient (AMB) | payer OTHER, MEDICARE, SELFPAY ==
--- NOTE | 2023-12-11 14:35 | MHC.OFFVIS ---
Vital Signs 12/11/23 14:41 Height 6 ft 1 in Weight 255 lb BMI 33.6 BP 138/84 Blood Pressure Location Lt brachial Position Sitting Respiration 16 Pulse 74 Pulse Source Pulse Oximeter Pulse Oximetry (%) 94 Oxygen Delivery Method Room Air Intake Visit Reasons: Lower back pain Intake Note: Patient comes in comes in for initial visit was referred by primary care doctor. Reports pain 10/10. Allergies No Known Allergies [No Known Allergies*] Allergy (Verified 11/06/23 15:56) HPI Comments Details: Adán is very pleasant 68 years old gentleman who presents in my office with complains on axial pain of the lower back as well as pain in the right knee. He reports that his pain today is 10/10. He reports that standing hurts more than sitting however flexing backwards aggravate pain less than flexing forward. Flexing forward is more painful. He reports pain aggravated with activities. He reports that walking aggravates his pain. He reports pain alleviation laying down. He reports that he can not sleep normally he can not do activities of daily living he can not take care of himself but he can not function normally. 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 He is self mobile and does not need any assistance with ambulation. Movements aggravate his pain. He denies incontinence with urine endorse stool. He denies urinary retention. He denies weakness or numbness in bilateral lower extremities. The pain is most severe during the daytime and less severe during the night. In terms of tissue damage he reports his pain is pulsing, throbbing, pounding, tugging, pulling, wrenching. He had MRI done for his lower back. The results of the MRI dictated as below. He had physical therapy last year without any success of the pain relief he had 8 sessions of physical therapy and home exercise program. He tried NSAIDs in form of Aleve and Advil and those medications do not help his pain. He tried topical medications which are not effective for his pain. His past medical history significant for hypertension. His past surgical history significant for right hip femur fracture in 2019 and right knee tibial plateau fracture. 2022. He denies smoking cigarettes but admits drinking from 5-10 shots of vodka a week. He drinks and decaf coffee, he denies recreational drugs. [facility] Medical History Alcohol abuse Anemia Aspiration pneumonia Falls Alcoholism HTN (hypertension) Social History Household Members: Spouse Housing: House Do you presently have visiting nurse or other home services: No Alcohol intake: current Alcohol intake frequency: a few times a week Comment: Pt. 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 Review of Systems Const All systems reviewed & are unremarkable except as noted in HPI and below ENT Reports Normal hearing present Neuro Reports Normal hearing present, Denies Abnormal speech present and Denies Sensory deficit (Neuro) Physical Exam Vital Signs: Last Vital Signs Pulse 74 12/11/23 14:41 Resp 16 12/11/23 14:41 BP 138/84 12/11/23 14:41 Pulse Ox 94 12/11/23 14:41 Oxygen Delivery Method Room Air 12/11/23 14:41 BMI result Body Mass Index 33.6 Const General: no acute distress, well developed, alert and awake Nutritional Appearance: well nourished Orientation/consciousness: oriented to person, oriented to place, oriented to time and patient oriented x3 Limitations: no limitations Eyes General: appearance normal, both eyes and all related structures Pupils: Equal, round and reactive pupils present EOM: EOMs intact bilaterally Neck Neck: Yes full ROM Chest Chest palpation & inspection: normal inspection of the chest Resp Effort & Inspection: normal respiratory effort, able to speak in complete sentences, normal respiratory pattern, no audible wheezes and no cough Cardio Jugular venous distension: no JVD GI Inspection: Yes normal to inspection Back/Spine/Pelvis Other: Significant tenderness on palpation and on percussion of entire lumbar spine. Tenderness on palpation of the sacral bone. Flexing forward and fact flexing backwards aggravate his pain however flexing forward aggravate the pain more than flexing backwards. SLR is negative bilaterally. Ronnie test is negative bilaterally. Stinchfield test is negative bilaterally. Able to stand on bilateral tiptoes in bilateral heels without difficulty. Trace normal strength of bilateral lower extremities. Valsalva maneuver aggravates his pain. Neuro General: oriented to person, oriented to place, oriented to time, patient oriented x3 and gait normal Cranial nerves: Yes CN's II-XII intact bilaterally, Yes Equal, round and reactive pupils present, Yes Normal hearing present and Yes Ability to bilaterally elevate shoulders present Speech: No Abnormal speech present Gait exam (Neuro): Normal gait present Motor exam (neuro): 5/5 motor strength present throughout Sensory Exam: No Sensory deficit (Neuro) Extrem General: No pedal edema Psych Speech and movement: Normal speech and movement present Affect: normal affect Attitude: cooperative Thought process: Normal thought process present Thought content: Normal thought content present Insight: Good insight present (Psych) Judgement: Good judgement present (Psych) Results Reviewed Results Reviewed: MR LUMBAR SPINE WITHOUT CONTRAST CLINICAL INFORMATION: Spinal stenosis, low back pain, frequent mechanical 4 COMPARISON: None available. TECHNIQUE: MRI of the lumbar spine was obtained using routine sequences without contrast. FINDINGS: Mild posterior T11-T12 disc protrusion and marked bilateral neural foramina stenosis are present. The visualized lumbar vertebrae are intact with normal alignment. No focal bone lesion with abnormal signal can be seen. Evaluation of the intervertebral discs show: T12/L1: Intervertebral disc height is markedly decreased, with marked loss of T2 signal. Moderate posterior disc protrusion is seen. Bilateral T12/L1 neuroforamina are patent. Bilateral apophyseal joints are intact with normal alignment. L-1/L-2: Intervertebral disc height is markedly decreased, with marked loss of T2 signal. Mild posterior and bilateral foraminal disc protrusion is seen. Bilateral L1-L2 neuroforamina are mildly stenosed. Bilateral apophyseal joints are intact with normal alignment. L2/L3: Intervertebral disc height is normal, with moderate loss of T2 signal. Mild posterior and bilateral foraminal disc protrusion is seen. Bilateral L2-L3 neuroforamina are markedly stenosed. Bilateral apophyseal joints are intact with normal alignment. L3/L4: Intervertebral disc height is normal, with moderate loss of T2 signal. Moderate posterior and bilateral foraminal disc protrusion is seen. Bilateral L3-L4 neuroforamina are markedly stenosed. There is moderate spinal stenosis with additional impingement by hypertrophic ligamentum flavum. Bilateral apophyseal joints are intact with normal alignment. Bilateral apophyseal joints show loss of joint space, sclerosis, facet hypertrophy and osteophytosis. L4/L5: Intervertebral disc height is normal, with moderate loss of T2 signal. Mild posterior and bilateral foraminal disc protrusion is seen. There are severe right and moderate left L4-L5 neuroforamina stenosis. There is marked spinal stenosis with additional impingement by hypertrophic ligamentum flavum. Bilateral apophyseal joints are intact with normal alignment. Bilateral apophyseal joints show loss of joint space, sclerosis, facet hypertrophy and osteophytosis. L5/S1: Intervertebral disc height is markedly decreased, with marked loss of T2 signal. Mild posterior and bilateral foraminal disc protrusion is seen. Bilateral L5-S1 neuroforamina are markedly stenosed, most severe on the right side. Bilateral apophyseal joints are intact with normal alignment. Bilateral apophyseal joints show loss of joint space, sclerosis, facet hypertrophy and osteophytosis. Conus medullaris is seen normally at L1 level. Bilateral paraspinal muscles show marked atrophy with fat replacement. IMPRESSION: 1. Multilevel advanced lumbar spondylosis and degenerative disc disease, most severe at L5-S1. 2. Multilevel posterior and bilateral foraminal disc protrusions causing neural foramina stenosis as described above. 3. Moderate L3-L4 and marked L4-L5 level spinal stenosis is seen due to additional impingement by hypertrophic ligamentum flavum. 4. At T11-T12, there are posterior disc protrusion and marked bilateral neural foramina stenosis. MRI images of this patient were personally examined by me after reading the MRI report. Despite the described spinal stenosis patient does not demonstrate any symptoms of nerve root compressions: No weakness no numbness no changes in pelvic organ function. At the same time on the MRI there are very pronounced L3 and L4 as well as L5 and S1 endplate ulcerations and corresponding Modic type 2 changes on the above-mentioned vertebra. Assessment & Plan Assessment & Plan (1) Spinal stenosis, lumbar region with neurogenic claudication: Code(s): M48.062 - Spinal stenosis, lumbar region with neurogenic claudication Category: Medical (2) Spondylolisthesis, lumbar region: Code(s): M43.16 - Spondylolisthesis, lumbar region Category: Medical (3) Spondylosis of lumbar region without myelopathy or radiculopathy: Code(s): M47.816 - Spondylosis without myelopathy or radiculopathy, lumbar region Category: Medical (4) Vertebrogenic low back pain: Code(s): M54.51 - Vertebrogenic low back pain Category: Medical Plan 3 distinct pain generations come to my mind with examination of this patient. Neurogenic claudication and spinal stenosis could be 1 of them, he has ligamentum flavum thickening at L4-5 projection mostly. Also he has very pronounced Modic type 2 changes in the L3-L4 and L4-5 as well as S1 vertebra. Vertebra genic low back pain can not be diagnosed and the patient may be scheduled for Intracept procedure. On the MRI he has also pronounced facet joint arthritis and spondylosis. This patient could be tried with medial branch block to rule out facet joint involvement into his pain syndrome. I will schedule him for MBB 1st. If it is not effective for control of his pain I will try L3-L4 L5 and S1 intercept procedure on this patient. If this will not be helping this patient MILD procedure can not be tried to alleviate his neurogenic claudication. Patient Instructions: I here by testify that I spent 45 minutes in conversation with this patient as well as evaluating his prior records evaluating his prior diagnostic studies and images and organizing this note.
[2023-12-11 14:41] VITALS: BP 138/84; PULSE 74; RESP 16; O2SAT 94; BMI 33.6
== END 2023-12-11 14:57 | disposition home or self-care (01) ==
LOC: HO.PMC 14:29
PROVIDERS: PCP Internal Medicine; Visit Provider Anesthesiology
DX: M48.062 Spinal stenosis, lumbar region with neurogenic claudication (principal); M43.16 Spondylolisthesis, lumbar region; M47.816 Spondylosis without myelopathy or radiculopathy, lumbar region; M54.51 Vertebrogenic low back pain
CPT/HCPCS: 99204

== ENCOUNTER → 2023-12-11 14:29 | Outpatient (BNVA) | payer OTHER, MEDICARE, SELFPAY | PROVIDERS: PCP Internal Medicine; Visit Provider Anesthesiology ==

== ENCOUNTER 2023-12-29 10:08 | Outpatient (AMB) | payer OTHER, MEDICARE, SELFPAY ==
[2023-12-29 10:11] VITALS: BMI 33.6
--- NOTE | 2023-12-29 10:11 | MHC.OFFVIS ---
Vital Signs 12/29/23 10:11 Height 6 ft 1 in Weight 255 lb BMI 33.6 Intake Visit Reasons: OV-Right knee pain-interested in cortisone Allergies No Known Allergies [No Known Allergies*] Allergy (Verified 11/06/23 15:56) HPI HPI OV-Right knee pain-interested in cortisone: Details: Adán is a 67 year old male who presents today with his for his follow up visit for his s/p Right Tibial Plateau fx 12/13/22. Patient reports that he was seen with pain mgmt, who did not want to inject the knee due to the hardware from the ORIF. He is taking Relief Factor which is helping his pain and inflammation. The knee is feeling very unstable when he is walking. He has history of right hip bursitis and he is interested in having this hip injected today. REPLACED BY [facility] Medical History Alcohol abuse Anemia Aspiration pneumonia Falls Alcoholism HTN (hypertension) Social History Household Members: Spouse Housing: House Do you presently have visiting nurse or other home services: No Alcohol intake: current Alcohol intake frequency: a few times a week Comment: Pt. 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 Assessment & Plan Assessment & Plan (1) Spondylosis of lumbar region without myelopathy or radiculopathy: Code(s): M47.816 - Spondylosis without myelopathy or radiculopathy, lumbar region Category: Medical Plan: Seeing pain management (2) History of falling: Code(s): Z91.81 - History of falling Category: Medical Plan: He has had multiple falls. (3) Right hip pain: Code(s): M25.551 - Pain in right hip Category: Medical Plan: There is tenderness to palpation over the right hip bursa. No injection today. If he changes his mind or would like an injection in the future he will contact us. (4) History of fracture of right hip: Comment: MISAEL 09/19/20 Code(s): Z87.81 - Personal history of (healed) traumatic fracture Category: Medical Plan: Right hip IM nail placed (5) Fracture of right tibial plateau: Comment: right tibial plateau ORIF 12/13/2022 [place] Code(s): S82.141A - Displaced bicondylar fracture of right tibia, initial encounter for closed fracture Category: Medical Qualifiers: Encounter type: subsequent encounter Fracture type: closed Fracture healing: with routine healing Qualified Code(s): S82.141D - Displaced bicondylar fracture of right tibia, subsequent encounter for closed fracture with routine healing Plan: Right knee is painful but stable Plan No interventions warranted at this time, He will contact our office for a Bursa Injection when needed. Coding Level of Care Code Est Pt Level 4 (88451) Diagnoses Spondylosis of lumbar region without myelopathy or radiculopathy M47.816 History of falling Z91.81 Right hip pain M25.551 History of fracture of right hip Z87.81 Closed fracture of right tibial plateau with routine healing, subsequent encounter S82.141D Encounter type: subsequent encounter Fracture type: closed Fracture healing: with routine healing
== END 2023-12-29 10:38 | disposition home or self-care (01) ==
PROVIDERS: PCP Internal Medicine; Visit Provider Orthopaedic Surgery
DX: M25.551 Pain in right hip (principal); M47.816 Spondylosis without myelopathy or radiculopathy, lumbar region; Z91.81 History of falling; Z87.81 Personal history of (healed) traumatic fracture; S82.141D Displaced bicondylar fracture of right tibia, subsequent encounter for closed fracture with routine healing
CPT/HCPCS: 99213

== ENCOUNTER → 2023-12-29 10:08 | Outpatient (BNVA) | payer OTHER, MEDICARE, SELFPAY | PROVIDERS: PCP Internal Medicine; Visit Provider Orthopaedic Surgery ==

== ENCOUNTER 2024-01-26 08:23 | Outpatient (AMB) | payer OTHER, MEDICARE, SELFPAY ==
--- NOTE | 2024-01-26 08:27 | A.OFFVIS_ITS ---
Vital Signs 01/26/24 08:33 Height 6 ft 1 in Weight 253 lb 8.505 oz BMI 33.4 BP 116/76 Blood Pressure Location Rt brachial Position Sitting Pulse 66 Pulse Source Pulse Oximeter Pulse Oximetry (%) 95 Oxygen Delivery Method Room Air Intake Visit Reasons: Colonoscopy screening Intake Note: Adán presents in office today for a colo scrn. CC; Pt reports that they have had a colo sp prior to this visit (approx. 10 years ago). Pt states that everything was normal at this visit in particular. Pt states that they have remained stable and they deny any significant sx or concerns at this time. Sound Engineering Technician Required: No Allergies No Known Allergies [No Known Allergies*] Allergy (Verified 01/26/24 08:31) HPI HPI Colonoscopy screening: Details: 68 year old? female here today for pre colonoscopy screening.? Patient was sent to us by his PCP.? Last colonoscopy 07/12/2013, normal colonoscopy.? Patient denies any gastrointestinal symptoms in the past or at present.? Denies any personal or family history of gastrointestinal disease, colon polyps, or CRC.? Denies history of difficulty with sedation or anesthesia in the past.? Negative for history of sleep apnea.? Denies any history of cardiac, renal, pulmonary, or hepatic disease.?? No history of infectious? diseases like hepatitis A, B, C, HIV or tuberculosis.? Patient is not on any anticoagulation [facility] Medical History Femur fracture Alcohol abuse Anemia Aspiration pneumonia Falls Alcoholism HTN (hypertension) Surgical History H/O colonoscopy Social History Household Members: Spouse Housing: House Do you presently have visiting nurse or other home services: No Alcohol intake: current Alcohol intake frequency: a few times a week Comment: Pt. 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 Review of Systems Const Denies weight gain and Denies weight loss ENT Reports no additional complaints, Denies dysphagia and Denies odynophagia Card Reports no additional complaints Resp Reports no additional complaints GI Denies abdominal pain, Denies belching, Denies melena, Denies bloating, Denies change in bowel habits, Denies dysphagia, Denies excessive flatus, Denies dyspepsia, Denies heartburn, Denies diarrhea, Denies loose stools, Denies nausea, Denies odynophagia and Denies vomiting Reports no additional complaints Musc Reports no additional complaints Neuro Reports no additional complaints Psych Reports no additional complaints Endo Reports no additional complaints Physical Exam Vital Signs: Last Vital Signs Pulse 66 01/26/24 08:33 BP 116/76 01/26/24 08:33 Pulse Ox 95 01/26/24 08:33 Oxygen Delivery Method Room Air 01/26/24 08:33 BMI result Body Mass Index 33.4 Const General: healthy appearing and no acute distress Nutritional Appearance: obese Orientation/consciousness: patient oriented x3 Resp Effort & Inspection: normal respiratory effort, able to speak in complete sentences, no tracheal deviation and symmetric chest movement Auscultation: clear to auscultation bilaterally Cardio Rate: regular rate GI Inspection: Yes normal to inspection, No distended and Yes obesity Palpation (GI): Soft to palpation, not firm, nontender and No hepatosplenomegaly present Auscultation: normal bowel sounds General: Yes no CVA tenderness Back/Spine/Pelvis Back: no CVA tenderness Skin General skin exam: elasticity normal, turgor normal and dry skin Neuro General: patient oriented x3 Psych Appearance: grossly normal Mental Status: mental status grossly normal Assessment & Plan Assessment & Plan (1) Screen for colon cancer: Code(s): Z12.11 - Encounter for screening for malignant neoplasm of colon Plan Patient denies any GI, cardiac or respiratory symptoms.? Denies any issues with anesthesia in the past.? Denies any history of sleep apnea.? No history infectious diseases in the past or present.? Not on any anticoagulation therapy.? No family or personal history of colon cancer or polyps.? Patient denies melena, hematochezia, unintentional weight loss or ribbon like stools.? Discussed at length the pre-procedure,? prep, diet & medications as well as what to expect prior, during and after the procedure.?? Stressed the importance of good bowel prep.? Recommended the use of Vaseline or Calmoseptine OTC & baby wipes with bowel movements to promote comfort.? ?Patient verbalizes understanding and agrees to plan of care.? He was given the opportunity to ask questions and all questions answered.? We will see him after the procedure.? Orders: Orders Magnesium Today N18.9 - Chronic kidney disease, unspecified Medications: New magnesium oxide 400 mg PO BEDTIME 30 tabs 0RF bisacodyl (Dulcolax (bisacodyl)) take 4 tabs at noon the day before your colonoscopy 20 mg (4 x 5 mg) PO ONCE 4 tabs 0RF 1 day Z12.11 - Encounter for screening for malignant neoplasm of colon polyethylene glycol 3350 (Miralax) As directed by gastroenterology department at [facility] 238 grams PO ONCE 238 grams 0RF Z12.11 - Encounter for screening for malignant neoplasm of colon Coding Level of Care Code New Pt Level 3 (22568) Diagnoses Screen for colon cancer Z12.11 Time Spent (min) 40 Comment 30 minutes spent with patient and additional 10 minutes spent reviewing his records
[2024-01-26 08:33] VITALS: BP 116/76; PULSE 66; O2SAT 95; BMI 33.4
== END 2024-01-26 09:32 | disposition home or self-care (01) ==
PROVIDERS: PCP Internal Medicine; Referring Provider Internal Medicine; Visit Provider Nurse Practitioner Family
DX: Z01.818 Encounter for other preprocedural examination (principal); Z12.11 Encounter for screening for malignant neoplasm of colon
CPT/HCPCS: S0285

== ENCOUNTER → 2024-01-26 08:23 | Outpatient (BNVA) | payer OTHER, MEDICARE, SELFPAY | PROVIDERS: PCP Internal Medicine; Referring Provider Internal Medicine; Visit Provider Nurse Practitioner Family ==

== ENCOUNTER 2024-01-30 06:17 | Outpatient (REF) | payer OTHER, MEDICARE, SELFPAY ==
--- NOTE | ~2024-01-30 | FL_ITS ---
EXAMINATION: XR FLUOROSCOPY WITH IMAGES CLINICAL INFORMATION: Spondylosis without myelopathy or radiculopathy, lumbar region. COMPARISON: None available. TECHNIQUE: Fluoroscopy Supervised By: Dr. Miguel Bellamy. Fluoroscopy Time: 0.6 minutes. Cumulative Dose: 33.2 mGy. DAP: 0.529 Gycm2. Images: 12. FINDINGS: Intraoperative fluoroscopy and spot films were performed during a procedure in the OR. [place] are seen overlying the foramen on the right as well as left at 3 contiguous levels with contrast media injected likely in the epidural space around the nerve sheaths. Please correlate with Dr. Miguel Bellamy's report for complete details. FL/FL guidance in treatment room IMPRESSION: Intraoperative fluoroscopy and spot films were obtained. Please see Dr. Miguel Bellamy's report for complete details.
== END 2024-01-30 06:18 | disposition home or self-care (01) ==
LOC: CF 06:17
PROVIDERS: Visit Provider Anesthesiology
DX: M47.816 Spondylosis without myelopathy or radiculopathy, lumbar region (principal); M48.062 Spinal stenosis, lumbar region with neurogenic claudication
CPT/HCPCS: 64493; 64494; J2795; Q9967

== ENCOUNTER 2024-01-30 12:38 | Outpatient (AMB) | payer OTHER, MEDICARE, SELFPAY ==
[2024-01-30 12:46] VITALS: BP 136/80; PULSE 20; O2SAT 98; BMI 33.4
--- NOTE | 2024-01-30 12:46 | A.OFFVIS_ITS ---
Vital Signs 01/30/24 12:46 01/30/24 13:36 Height 6 ft 1 in 6 ft 1 in Weight 253 lb 253 lb BMI 33.4 33.4 BP 136/80 142/88 H Blood Pressure Location Lt brachial Lt brachial Position Sitting Sitting Respiration 18 Pulse 20 L 70 Pulse Source Pulse Oximeter Pulse Oximeter Pulse Oximetry (%) 98 96 Oxygen Delivery Method Room Air Room Air Comment Pre-Op Post-Op Intake Visit Reasons: BILATERAL DIAGNOSTIC L3, L4, DRL5 MBB Allergies No Known Allergies [No Known Allergies*] Allergy (Verified 01/26/24 08:31) PFSH Medical History Femur fracture Alcohol abuse Anemia Aspiration pneumonia Falls Alcoholism HTN (hypertension) Surgical History H/O colonoscopy Social History Household Members: Spouse Housing: House Do you presently have visiting nurse or other home services: No Alcohol intake: current Alcohol intake frequency: a few times a week Comment: Pt. 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 Physical Exam Vital Signs: Last Vital Signs Pulse 70 01/30/24 13:36 Resp 18 01/30/24 13:36 BP 142/88 H 01/30/24 13:36 Pulse Ox 96 01/30/24 13:36 Oxygen Delivery Method Room Air 01/30/24 13:36 BMI result Body Mass Index 33.4 Assessment & Plan Assessment & Plan (1) Spinal stenosis, lumbar region with neurogenic claudication: Code(s): M48.062 - Spinal stenosis, lumbar region with neurogenic claudication Category: Medical (2) Spondylolisthesis, lumbar region: Code(s): M43.16 - Spondylolisthesis, lumbar region Category: Medical (3) Spondylosis of lumbar region without myelopathy or radiculopathy: Code(s): M47.816 - Spondylosis without myelopathy or radiculopathy, lumbar region Category: Medical Plan: Diagnostic medial branch block L3,L4 dorsal ramus L5 bilateral.? ? ?Informed consent was explained to the patient. All questions were explained and? answered.? The patient was taken inside the operating room where she was positioned prone on the operating table. Time-out was performed delineating correct site, side, the nature of the procedure, patient's allergy, . All operating room staff was participating in OR time-out procedure. ? ? The lower back was prepped with ChloraPrep and draped with sterile towels.? C- arm was brought over the operating field and sq picture of L4-, L5 vertebra and S1 AREA were delineated on the screen.? Point of interest were delineated as confluence of superior articular process of L4 and L5 vertebra bilaterally with corresponding transverse processes as well as confluence of the sacral alae bilaterally with superior articular process of S1.? The projection of the point of interest to the skin were injected with the small amount of local anesthetic lidocaine 2% 1-1.5 cc.? After that 22 gauge 3.5 inch spinal needle was driven sequentially to the points of interest in tunnel vision fashion. After needles gently contacted the bone at the point of interests the needle was injected with small amount of the contrast.? The injection of the contrast did not demonstrate any intravascular or intrathecal spread of the contrast.? After that injection of the? ropivacaine 0.5%-1cc was performed at each needle location.??after that the needles were removed and Bandaids were applied. ? Upon completion of the injections? needle was? removed and sterile Band-Aids were applied.? The patient tolerated procedure very well. (4) Vertebrogenic low back pain: Code(s): M54.51 - Vertebrogenic low back pain Category: Medical Plan 3 distinct pain generations come to my mind with examination of this patient. Neurogenic claudication and spinal stenosis could be 1 of them, he has ligamentum flavum thickening at L4-5 projection mostly. Also he has very pronounced Modic type 2 changes in the L3-L4 and L4-5 as well as S1 vertebra. Vertebra genic low back pain can not be diagnosed and the patient may be s cheduled for Intracept procedure. On the MRI he has also pronounced facet joint arthritis and spondylosis. This patient could be tried with medial branch block to rule out facet joint involvement into his pain syndrome. I will schedule him for MBB 1st. If it is not effective for control of his pain I will try L3-L4 L5 and S1 intercept procedure on this patient. If this will not be helping this patient MILD procedure can not be tried to alleviate his neurogenic claudication. Orders: Orders FL guidance in treatment room Today M47.816 - Spondylosis without myelopathy or radiculopathy, lumbar region Coding Level of Care Code Procedure Only Diagnoses Spinal stenosis, lumbar region with neurogenic claudication M48.062 Spondylolisthesis, lumbar region M43.16 Spondylosis of lumbar region without myelopathy or radiculopathy M47.816 Vertebrogenic low back pain M54.51
[2024-01-30 13:36] VITALS: BP 142/88; PULSE 70; RESP 18; O2SAT 96; BMI 33.4
== END 2024-01-30 13:41 | disposition home or self-care (01) ==
LOC: HO.PMCPRC 12:39
PROVIDERS: PCP Internal Medicine; Visit Provider Anesthesiology
DX: M47.816 Spondylosis without myelopathy or radiculopathy, lumbar region (principal); M48.062 Spinal stenosis, lumbar region with neurogenic claudication; M43.16 Spondylolisthesis, lumbar region; M54.51 Vertebrogenic low back pain
CPT/HCPCS: 64493; 64494